=== PATIENT | female | born 1940 | race American Indian/Alaskan Native ===

== ENCOUNTER 2017-01-26 10:37 | Outpatient (CLI) | payer MEDICARE, OTHER ==
--- NOTE | 2017-01-27 07:30 | Vascular Lab Report ---
MESENTERIC ARTERIAL DUPLEX Reason for exam: Mesenteric artery insufficiency Comments: The aorta is patent. Flow velocities are within normal limits. Minimal atherosclerotic change is identified. No aneurysmal dilatation is noted. The celiac artery is patent. Flow velocities are normal. No evidence of obstruction is identified. The superior mesenteric artery is patent. Flow velocities are normal. No evidence of obstruction is identified. A caloric challenge was given. The patient complained of mild pain and pressure during the period of observation afterword. The superior mesenteric artery was interrogated for approximately 20 minutes after the meal. No significant changes in flow velocities were observed. Impression: This study does not support the diagnosis of mesenteric ischemia.
== END 2017-01-26 10:38 | disposition home or self-care (01) ==
LOC: VAS 10:37
PROVIDERS: ATTEND Surgery Vascular Surgery
DX: R10.84 Generalized abdominal pain (principal)
CPT/HCPCS: 93979

== ENCOUNTER 2018-05-19 10:16 | Outpatient (CLI) | payer MEDICARE, OTHER ==
--- NOTE | 2018-05-19 12:19 | Mammography Report ---
BILATERAL DIGITAL SCREENING MAMMOGRAM with CAD: 05/19/18 10:16:00 CLINICAL: Routine screening. COMPARISON:04/21/16 FINDINGS: There are bilateral scattered fibroglandular densities. Left outer asymmetry in the CC view requires additional imaging.No architectural distortion or suspicious calcifications.The right breast is negative. IMPRESSION: Left asymmetry requiring further workup. BI-RADS CATEGORY: 0 -- Additional Imaging Evaluation Required RECOMMENDATION: Recall for left mediolateral and spot magnification CC views and left breast ultrasound if needed. ACR BI-RADS MAMMOGRAPHIC CODES: 0 = Needs additional imaging evaluation; 1 = Negative; 2 = Benign; 3 = Probably benign; 4 = Suspicious; 5 = Malignant; 6 = Known biopsy-proven malignancy COMMENT: 1. Dense breast tissue, i.e., adenosis, fibrocystic changes, etc., may obscure an underlying neoplasm. 2. Approximately 10% of cancers are not detected with mammography. 3. A negative mammography report should not delay biopsy if a clinically suspicious mass is present. COMMENT: Patient follow-up letters are generated via our [employer] application.
== END 2018-05-19 10:17 | disposition home or self-care (01) ==
LOC: SPVWC 10:16
PROVIDERS: ATTEND Family Medicine
DX: Z12.31 Encounter for screening mammogram for malignant neoplasm of breast (principal); Z88.2 Allergy status to sulfonamides; Z88.5 Allergy status to narcotic agent
CPT/HCPCS: 77067

== ENCOUNTER 2019-05-21 11:51 | Outpatient (CLI) | payer MEDICARE, OTHER ==
--- NOTE | 2019-05-23 16:25 | Mammography Report ---
DIGITAL SCREENING MAMMOGRAM WITH CAD, 05/21/2019 INDICATION: Routine screening mammography. TECHNIQUE: Digital bilateral 2D mammography was obtained in the craniocaudal and mediolateral obliq ue projections. This examination was interpreted with the benefit of Computer-Aided Detection analysi s. COMPARISON: 05/19/2018 FINDINGS: Breast Density: The breasts are heterogeneously dense, which may obscure small masses. There is no evidence of dominant mass, suspicious calcifications or architectural distortion in eithe r breast. Bilateral benign calcifications, which are mostly arterial. IMPRESSION: No mammographic evidence of malignancy. Follow up recommendation: Routine yearly BI-RADS Category 2: Benign. A "normal" or negative report should not discourage follow up or biopsy of a clinically significant f inding. A written summary of these findings will be mailed to the patient. The patient will be entered into a mammography reporting system which will generate a reminder letter for the patient's next appointmen t at the appropriate interval. The [employer] recommends yearly mammograms starting at age 40 and continuing as l jennifer as a woman is in good health. Breast MRI is recommended for women with an approximate 20-25% or greater lifetime risk of breast cancer, including women with a strong family history of breast or ova alis cancer or who have been treated for Hodgkin's disease. Signer Name: Damion Geller MD Signed: 05/23/2019 4:20 PM Workstation Name: [id number]
== END 2019-05-21 11:52 | disposition home or self-care (01) ==
LOC: SPVWC 11:51
PROVIDERS: ATTEND Family Medicine
DX: Z12.31 Encounter for screening mammogram for malignant neoplasm of breast (principal)
CPT/HCPCS: 77067

== ENCOUNTER 2020-07-23 11:05 | Outpatient (CLI) | payer MEDICARE, OTHER ==
--- NOTE | 2020-07-23 13:15 | Mammography Report ---
DIGITAL SCREENING MAMMOGRAM WITH CAD, 07/23/2020 CLINICAL INFORMATION / INDICATION: Routine screening mammography. SCREENING MAMMO TECHNIQUE: Digital bilateral 2D mammography was obtained in the craniocaudal and mediolateral obliqu e projections. This examination was interpreted with the benefit of Computer-Aided Detection analysis . COMPARISON: Prior mammograms 05/21/2019 and 05/19/2018 FINDINGS: Breast Density: There are scattered areas of fibroglandular density. No dominant mass, suspicious calcifications, or architectural distortion in either breast. There has been no significant change compared with the prior examinations. IMPRESSION: No mammographic evidence of malignancy. Follow up recommendation: Routine yearly BI-RADS Category 1: Negative. A "normal" or negative report should not discourage follow up or biopsy of a clinically significant f inding. A written summary of these findings will be mailed to the patient. The patient will be entered into a mammography reporting system which will generate a reminder letter for the patient's next appointmen t at the appropriate interval. The [employer] recommends yearly mammograms starting at age 40 and continuing as l jennifer as a woman is in good health. Breast MRI is recommended for women with an approximate 20-25% or greater lifetime risk of breast cancer, including women with a strong family history of breast or ova alis cancer or who have been treated for Hodgkin's disease. Signer Name: Rose Paz MD Signed: 07/23/2020 1:11 PM Workstation Name: [email or web address]
== END 2020-07-23 11:06 | disposition home or self-care (01) ==
LOC: SPVWC 11:05
PROVIDERS: ATTEND Family Medicine
DX: Z12.31 Encounter for screening mammogram for malignant neoplasm of breast (principal)
CPT/HCPCS: 77067

== ENCOUNTER 2020-09-11 12:15 | Outpatient (CLI) | payer MEDICARE, OTHER ==
--- NOTE | 2020-09-11 13:33 | Mammography Report ---
DEXA BONE DENSITY SCAN INDICATION / CLINICAL INFORMATION: POSTMENOPAUSAL STATE. COMPARISON: None available. LUMBAR SPINE, L1-L4: - Bone mineral density (BMD) = 0.848 g/cm2. - T-score = -2.7 - Z-score = 0.1 Change (%) since most recent prior (if available): None available. LEFT HIP, NECK : - Bone mineral density (BMD) = 0.696 g/cm2. - T-score = -1.8 - Z-score = -0.1 Change (%) since most recent prior (if available): None available. IMPRESSION: 1. WHO Classification: Osteoporosis. Fracture Risk: High. BMD Reporting Guidelines (ISCD, 2015) BMD Reporting in Postmenopausal Women and in Men Age 50 and Older * T-scores are preferred. * The WHO densitometric classification is applicable. BMD Reporting in Females Prior to Menopause and in Males Younger Than Age 50 * Z-scores, not T-scores, are preferred. This is particularly important in children. * A Z-score of -2.0 or lower is defined as below the expected range for age, and a Z-score above -2. 0 is within the expected range for age. * Osteoporosis cannot be diagnosed in men under age 50 on the basis of BMD alone. * The WHO diagnostic criteria may be applied to women in the menopausal transition. http://www.iscd.org/official-positions/1467-ucuu-gjmioire-positions-adult/ Signer Name: Georgi Vaughn MD Signed: 09/11/2020 1:28 PM Workstation Name: [email or web address]
== END 2020-09-11 12:16 | disposition home or self-care (01) ==
LOC: SPVWC 12:15
PROVIDERS: ATTEND Family Medicine
DX: Z13.820 Encounter for screening for osteoporosis (principal); Z78.0 Asymptomatic menopausal state
CPT/HCPCS: 77080

== ENCOUNTER 2021-07-01 23:34 | Inpatient (IN) | payer MEDICARE, OTHER ==
[2021-07-01] MEDS ORDERED: SODIUM CHLORIDE 0.9% 1000 ML 1,000 ML IV ONE (23:43)
[2021-07-01] MEDS ORDERED: PIPERACILLIN/TAZOBACTAM 3.375 3.375 GM/50 ML BAG IV ONE (23:44)
[2021-07-01] MEDS ORDERED: ACETAMINOPHEN 650 MG RECT SUPP PR ONE (23:49)
--- NOTE | 2021-07-01 23:53 | Emergency Department Report ---
ED General Adult HPI - General Chief complaint: Altered Mental Status Stated complaint: ALTERED MENTAL STATUS Time Seen by Provider: 07/01/21 23:42 Source: EMS Mode of arrival: Stretcher Limitations: Altered Mental Status - History of Present Illness Initial comments: Patient is 80 years old female, custodial patient. Patient with history of hypertension and recent diagnosis of COVID-19 and sepsis also. Patient brought to the emergency room via EMS for evaluation of decreased responsiveness for the last 3 days. EMS stated that patient initially responding to painful stimuli. Patient initial blood pressure was 80/40. Upon arrival to the ER patient is morning however she is moving her right upper and lower extremity. Patient also found to have a temperature of 100.5. Code sepsis immediately initiated. Patient received normal saline, Tylenol and Zosyn. Sepsis protocol initiated. Severity scale (0 -10): 0 - Related Data Allergies Allergy/AdvReac Type Severity Reaction Status Date / Time codeine Allergy Nausea Unverified 01/26/17 10:41 Sulfa (Sulfonamide Allergy UNABLE TO Unverified 01/26/17 10:41 Antibiotics) WALK, MUSCLES ED Review of Systems ROS: Stated complaint: ALTERED MENTAL STATUS Other details as noted in HPI Comment: Unobtainable due to pts medical conditions ED Physical Exam - General Limitations: Altered Mental Status General appearance: obtunded - Head Head exam: Present: atraumatic, normocephalic, normal inspection - ENT ENT exam: Present: mucous membranes dry - Respiratory Respiratory exam: Present: rales, decreased breath sounds. Absent: prolonged expiratory - Cardiovascular Cardiovascular Exam: Present: tachycardia - GI/Abdominal GI/Abdominal exam: Present: soft - Neurological Exam Neurological exam: Present: altered - Skin Skin exam: Present: dry ED Course Vital Signs 07/01/21 07/01/21 07/01/21 23:38 23:46 23:47 Temperature 100.5 F H Pulse Rate 119 H 121 H 118 H Respiratory 27 H 29 H 25 H Rate Blood Pressure 140/105 Blood Pressure 140/105 [Right] O2 Sat by Pulse 98 92 Oximetry 07/02/21 07/02/21 07/02/21 00:00 00:08 00:16 Temperature Pulse Rate Respiratory 11 L 25 H 31 H Rate Blood Pressure 122/101 117/84 Blood Pressure [Right] O2 Sat by Pulse 93 87 Oximetry 07/02/21 07/02/21 07/02/21 00:30 00:46 01:00 Temperature Pulse Rate 112 H 109 H 122 H Respiratory 20 24 29 H Rate Blood Pressure 73/38 41/24 83/49 Blood Pressure [Right] O2 Sat by Pulse 100 Oximetry 07/02/21 07/02/21 07/02/21 01:14 01:16 01:30 Temperature Pulse Rate 109 H 105 H Respiratory 24 14 17 Rate Blood Pressure 90/57 91/55 Blood Pressure [Right] O2 Sat by Pulse Oximetry 07/02/21 07/02/21 07/02/21 01:46 02:00 02:16 Temperature Pulse Rate 101 H 105 H Respiratory 18 18 17 Rate Blood Pressure 91/55 89/53 89/53 Blood Pressure [Right] O2 Sat by Pulse Oximetry 07/02/21 07/02/21 07/02/21 02:30 02:54 03:00 Temperature Pulse Rate 101 H 109 H Respiratory 20 24 Rate Blood Pressure 100/56 103/58 Blood Pressure [Right] O2 Sat by Pulse 100 100 Oximetry 07/02/21 07/02/21 03:16 03:30 Temperature Pulse Rate 105 H Respiratory 22 25 H Rate Blood Pressure 103/58 102/61 Blood Pressure [Right] O2 Sat by Pulse Oximetry ED Medical Decision Making - Lab Data Result diagrams: 07/02/21 00:23 07/02/21 00:23 - EKG Data -: EKG Interpreted by Ar EKG shows normal: sinus rhythm Rate: tachycardia - EKG Data Interpretation: no acute changes - Radiology Data Radiology results: report reviewed - Medical Decision Making Patient is 80 years old female, custodial patient. Patient with history of hypertension and recent diagnosis of COVID-19 and sepsis also. Patient brought to the emergency room via EMS for evaluation of decreased responsiveness for the last 3 days. EMS stated that patient initially responding to painful stimuli. P atient initial blood pressure was 80/40. Upon arrival to the ER patient is morning however she is moving her right upper and lower extremity. Patient also found to have a temperature of 100.5. Code sepsis immediately initiated. Patient received normal saline, Tylenol and Zosyn. Sepsis protocol initiated. Labs reviewed and showed a leukocytosis of 21,000. Patient with significant kidney function impairment with a creatinine of 4.6 and a BUN of 80. Sodium is 148. Chest x-ray is unremarkable. Patient does have a decubitus ulcer. Patient blood pressure improved after normal saline. Patient current blood pressure is 102/61 with a MAP of 74. We will continue fluid resuscitation. I discussed the patient with Dr. Cruz, he agreed to admit the patient to medical service for further management. Critical care attestation.: If time is entered above; I have spent that time in minutes in the direct care of this critically ill patient, excluding procedure time. ED Disposition Clinical Impression: Acute sepsis, Acute renal failure, Acute hypernatremia Disposition: ADMITTED INPATIENT Is pt being admited?: Yes Condition: Stable Referrals: KEELY ULRICH MD [Primary Care Provider] - 3-5 Days
--- NOTE | 2021-07-02 00:39 | XRay Report ---
CHEST 1 VIEW 07/01/2021 11:26 PM INDICATION / CLINICAL INFORMATION: sepsis. COMPARISON: 06/29/07 FINDINGS: SUPPORT DEVICES: None. HEART / MEDIASTINUM: No significant abnormality. LUNGS / PLEURA: Mild bibasilar scarring versus atelectasis. No pneumothorax. ADDITIONAL FINDINGS: No significant additional findings. IMPRESSION: 1. Mild bibasilar scarring versus atelectasis. No pneumonia. Signer Name: Grady Spaulding MD Signed: 07/02/2021 12:35 AM Workstation Name: [id number]
[2021-07-02 00:58] LABS: Mean Corpuscular HGB Conc 30 % (30-34); Mean Corpuscular Volume 95 fl (79-97); Platelet Count 583 K/mm3 (140-440); Red Blood Count 4.13 M/mm3 (3.65-5.03)
[2021-07-02] MEDS ORDERED: SODIUM CHLORIDE 0.9% 1000 ML 1,000 ML IV ONE ×3 (01:08→20:42)
[2021-07-02 01:19] LABS: Hematocrit 39.4 % (30.3-42.9); Hemoglobin 11.9 gm/dl (10.1-14.3)
[2021-07-02 01:28] LABS: Albumin 2.8 g/dL (3.9-5); Calcium 8.7 mg/dL (8.4-10.2)
[2021-07-02 02:56] LABS: RBC Morphology Normal; Total Cells Counted 100
--- NOTE | 2021-07-02 03:13 | Cat Scan Report ---
CT ABDOMEN AND PELVIS WITHOUT CONTRAST INDICATION / CLINICAL INFORMATION: Recent diagnoses of Covid-19 and Sepsis. Now with abdominal pain. TECHNIQUE: Axial CT images were obtained through the abdomen and pelvis without IV contrast. All CT scans at this location are performed using CT dose reduction for ALARA by means of automated exposure control. COMPARISON: Chest radiograph dated 07/01/21 FINDINGS: LOWER CHEST: Bibasilar scarring and fibrosis. LIVER: No significant abnormality. GALLBLADDER: Gallbladder is distended. No calcified gallstones or inflammation. BILE DUCTS: No significant abnormality. PANCREAS: No significant abnormality. SPLEEN: No significant abnormality. ADRENALS: No significant abnormality. RIGHT KIDNEY / URETER: No significant abnormality. LEFT KIDNEY / URETER: No significant abnormality. STOMACH / SMALL BOWEL: No significant abnormality. COLON: Large amount of fecal material in the rectal vault with perirectal stranding and presacral sof t tissue edema suggesting fecal impaction. Moderate amount of fecal material in the proximal colon. M ild thickening and inflammation of the sigmoid colon. APPENDIX: Not visualized. PERITONEUM: No free fluid. No free air. No fluid collection. LYMPH NODES: No significant adenopathy. AORTA / ARTERIES: No significant abnormality. IVC / VEINS: No significant abnormality. URINARY BLADDER: Contracted REPRODUCTIVE ORGANS: Uterus is absent. No significant adnexal abnormality. ADDITIONAL FINDINGS: None. SKELETAL SYSTEM: No significant abnormality. IMPRESSION: 1. Rectal fecal impaction with perirectal soft tissue stranding and mild thickening/inflammation of t he adjacent sigmoid colon. Constipation. Signer Name: Grady Spaulding MD Signed: 07/02/2021 3:08 AM Workstation Name: [id number]
[2021-07-02] MEDS ORDERED: ONDANSETRON 4 MG/2 ML INJ IV PRN (04:11)
[2021-07-02] MEDS ORDERED: MAGNESIUM HYDROXIDE (MOM) ORAL LIQD UDC PO PRN (04:11)
[2021-07-02] MEDS ORDERED: MORPHINE 2 MG/1 ML INJ IV PRN (04:11)
[2021-07-02] MEDS ORDERED: ACETAMINOPHEN 650 MG RECT SUPP PR PRN (04:11)
[2021-07-02] MEDS ORDERED: MORPHINE 4 MG/1 ML INJ IV PRN (04:11)
[2021-07-02] MEDS ORDERED: SODIUM CHLORIDE 0.9% 1000 ML 1,000 ML IV SCH ×2 (04:15→20:45)
--- NOTE | 2021-07-02 04:27 | History and Physical Report ---
History of Present Illness Date of examination: 07/02/21 Date of admission: 07/02/2021 Chief complaint: Altered mental status History of present illness: 80-year-old -Prydeinig female resident of a [place] [facility] with known history of hypertension and a recent history of COVID-19 brought into the emergency room today for changes in mental status. Patient was said to have had decreased responsiveness while in the [place] [facility] over the past 3 days. She was unable to give any good history and most of the history was obtained from the ER staff. Upon arrival in the emergency room patient's blood pressure was about 80/40 mmHg. She was placed on sepsis protocol. She was immediately commenced on IV fluid with improvement of her systolic blood pressure in the low 100s. Work-up in the emergency room today, labs reveals a leukocytosis of 21.7, lactic acid of 5.5, glucose of 211, BUN and creatinine of 80 and 4.6 respectively, sodium of 146. Chest x-ray shows mild bibasilar scarring versus atelectasis. No pneumonia. CT of the abdomen and pelvis reveals rectal fecal impaction. Past History Past Medical History: other (Unobtainable) Past Surgical History: Other (Unobtainable) Social history: other (Resides in a [place] [facility] facility) Family history: other (Unobtainable) Medications and Allergies Allergies Allergy/AdvReac Type Severity Reaction Status Date / Time codeine Allergy Nausea Verified 07/02/21 04:25 Sulfa (Sulfonamide Allergy UNABLE TO Verified 07/02/21 04:25 Antibiotics) WALK, MUSCLES Active Meds: Active Medications Acetaminophen (Acetaminophen 650 Mg Rect Supp) 650 mg OK Q6H PRN PRN Reason: Pain MILD(1-3)/Fever >100.5/COLIN Heparin Sodium (Porcine) (Heparin 5,000 Unit/1 Ml Vial) 5,000 unit SUB-Q Q8HR HEBERT Sodium Chloride (Nacl 0.9% 1000 Ml) 1,000 mls @ 125 mls/hr IV DIRECT HEBERT Piperacillin Sod/Tazobactam Sod (Zosyn/Ns 4.5gm/100ml) 4.5 gm in 100 mls @ 200 mls/hr IV Q8H HEBERT; Protocol Magnesium Hydroxide (Magnesium Hydroxide (Mom) Oral Liqd Udc) 30 ml PO Q4H PRN PRN Reason: Constipation Morphine Sulfate (Morphine 2 Mg/1 Ml Inj) 2 mg IV Q4H PRN PRN Reason: Pain, Moderate (4-6) Morphine Sulfate (Morphine 4 Mg/1 Ml Inj) 4 mg IV Q4H PRN PRN Reason: Pain , Severe (7-10) Ondansetron HCl (Ondansetron 4 Mg/2 Ml Inj) 4 mg IV Q8H PRN PRN Reason: Nausea And Vomiting Sodium Chloride (Sodium Chloride 0.9% 10 Ml Flush Syringe) 10 ml IV BID HEBERT Sodium Chloride (Sodium Chloride 0.9% 10 Ml Flush Syringe) 10 ml IV PRN PRN PRN Reason: LINE FLUSH Review of Systems ROS unobtainable: due to mental status Exam - Constitutional Vitals: Temp Pulse Resp BP Pulse Ox 100.5 F H 105 H 25 H 102/61 100 07/01/21 23:47 07/02/21 03:16 07/02/21 03:30 07/02/21 03:30 07/02/21 03:00 General appearance: Present: no acute distress, well-nourished - EENT Eyes: Present: PERRL, EOM intact ENT: hearing intact, clear oral mucosa, dentition normal, other (Dry oral mucosa) - Neck Neck: Present: supple, normal ROM - Respiratory Respiratory effort: normal Respiratory: bilateral: diminished - Cardiovascular Rhythm: regular Heart Sounds: Present: S1 & S2. Absent: gallop, systolic murmur, diastolic murmur, rub, click - Extremities Extremities: no ischemia, pulses intact, pulses symmetrical, No edema, normal temperature, normal color, Full ROM Peripheral Pulses: within normal limits - Abdominal General gastrointestinal: Present: soft, non-tender, non-distended, normal bowel sounds. Absent: mass - Integumentary Integumentary: Present: clear, warm, dry. Absent: rash - Musculoskeletal Musculoskeletal: strength equal bilaterally - Psychiatric Psychiatric: cooperative - Neurologic Neurologic: CNII-XII intact, no focal deficits, moves all extremities, other (Nonverbal) HEART Score - HEART Score Troponin: Troponin T 0.024 ng/mL (0.00-0.029) 07/02/21 00:23 Results - Labs CBC & Chem 7: 07/02/21 00:23 07/02/21 00:23 Labs: Abnormal lab results 07/02/21 07/02/21 07/02/21 Range/Units 00:23 00:23 00:23 WBC 21.7 H (4.5-11.0) K/mm3 RDW 17.0 H (13.2-15.2) % Plt Count 583 H (140-440) K/mm3 Seg Neuts % (Manual) 86.0 H (40.0-70.0) % Lymphocytes % (Manual) 5.0 L (13.4-35.0) % Monocytes % (Manual) 9.0 H (0.0-7.3) % Seg Neutrophils # Man 18.7 H (1.8-7.7) K/mm3 Lymphocytes # (Manual) 1.1 L (1.2-5.4) K/mm3 Monocytes # (Manual) 2.0 H (0.0-0.8) K/mm3 Sodium 146 H (137-145) mmol/L Chloride 107.1 H (98-107) mmol/L Carbon Dioxide 15 L (22-30) mmol/L BUN 80 H (7-17) mg/dL Creatinine 4.6 H (0.6-1.2) mg/dL Glucose 211 H (65-100) mg/dL Lactic Acid 5.70 H* (0.7-2.0) mmol/L Albumin 2.8 L (3.9-5) g/dL 07/02/21 Range/Units 01:45 WBC (4.5-11.0) K/mm3 RDW (13.2-15.2) % Plt Count (140-440) K/mm3 Seg Neuts % (Manual) (40.0-70.0) % Lymphocytes % (Manual) (13.4-35.0) % Monocytes % (Manual) (0.0-7.3) % Seg Neutrophils # Man (1.8-7.7) K/mm3 Lymphocytes # (Manual) (1.2-5.4) K/mm3 Monocytes # (Manual) (0.0-0.8) K/mm3 Sodium (137-145) mmol/L Chloride (98-107) mmol/L Carbon Dioxide (22-30) mmol/L BUN (7-17) mg/dL Creatinine (0.6-1.2) mg/dL Glucose (65-100) mg/dL Lactic Acid 5.50 H* (0.7-2.0) mmol/L Albumin (3.9-5) g/dL Assessment and Plan - Patient Problems (1) Altered mental status Current Visit: Yes Status: Acute Plan to address problem: Etiology is unclear. Possibly secondary to underlying sepsis. We will monitor mental status. (2) Acute renal failure Current Visit: Yes Status: Acute Plan to address problem: Patient placed on IV fluid. Will monitor BUN and creatinine. Consult placed to nephrology for evaluation and recommendations. (3) Acute sepsis Current Visit: Yes Status: Acute Plan to address problem: Patient placed on IV fluid and empiric IV antibiotics. Will await culture results. (4) DVT prophylaxis Current Visit: Yes Status: Acute Plan to address problem: Patient placed on subcutaneous heparin. (5) Full code status Current Visit: Yes Status: Acute Plan to address problem: Patient is full code.
[2021-07-02 05:05] LABS: Bacteria,Urine 1+ /HPF (Negative); Bilirubin,Urine NEG (Negative); Blood,Urine MOD (Negative); Color,Urine Amber (Yellow); Hyaline Casts,Urine 2 /LPF; Mucus,Urine FEW /HPF
[2021-07-02] MEDS ORDERED: HEPARIN 5,000 UNIT/1 ML VIAL SUB-Q SCH (06:00)
--- NOTE | 2021-07-02 06:33 | Ultrasound Report ---
ULTRASOUND RENAL INDICATION / CLINICAL INFORMATION: Acute renal failure. COMPARISON: CT dated 07/02/21 FINDINGS: RIGHT KIDNEY: Length = 9.2 cm. - Echogenicity: Normal. - Cortical Thickness: Normal. - Hydronephrosis: None. - Cyst / Mass: None. - Stones: None seen. LEFT KIDNEY: Length = 9.8 cm. - Echogenicity: Normal. - Cortical Thickness: Normal. - Hydronephrosis: None. - Cyst / Mass: None. - Stones: None seen. URINARY BLADDER: Contracted. FREE FLUID: None. ADDITIONAL FINDINGS: None. IMPRESSION: 1. No acute sonographic abnormality of the kidneys. Signer Name: Grady Spaulding MD Signed: 07/02/2021 6:29 AM Workstation Name: [id number]
[2021-07-02] MEDS ORDERED: PIPERACIL/TAZOBACTA 4.5/NS 100 4.5 GM/100 ML VIAL IV SCH (08:00)
--- NOTE | 2021-07-02 09:45 | Consultation ---
History of Present Illness - Reason for Consult Consult date: 07/02/21 acute renal failure - History of Present Illness The patient is a 80 YO AAF resident of a assisted with known history of Hypertension and a recent history of COVID-19 PNA who was brought into [facility] ED 07/01 with AMS. Patient was not able to provide any history and her at the bedside was not able to provide any information. Patient with decreased responsiveness while in the assisted over the past 3 days. Upon arrival to ED BP was about 80/40 mmHg. Labs revealed wbc 21.7, Lactic acid of 5.5, BUN 80, creatinine 4.6 and sodium 146. Chest x-ray showed mild bibasilar scarring versus atelectasis. CT of the abdomen and pelvis revealed rectal fecal impaction. She was placed on sepsis protocol. Nephrology was consulted for further evaluation and treatment of LENCHO. Past History Past Medical History: other (Unobtainable) Past Surgical History: Other (Unobtainable) Social history: other (Resides in a assisted) Family history: other (Unobtainable) Medications and Allergies Allergies Allergy/AdvReac Type Severity Reaction Status Date / Time codeine Allergy Nausea Verified 07/02/21 09:54 Sulfa (Sulfonamide Allergy UNABLE TO Verified 07/02/21 09:54 Antibiotics) WALK, MUSCLES Active Meds: Active Medications Acetaminophen (Acetaminophen 650 Mg Rect Supp) 650 mg UT Q6H PRN PRN Reason: Pain MILD(1-3)/Fever >100.5/COLIN Heparin Sodium (Porcine) (Heparin 5,000 Unit/1 Ml Vial) 5,000 unit SUB-Q Q8HR HEBERT Last Admin: 07/02/21 05:52 Dose: Not Given Documented by: Sodium Chloride (Nacl 0.9% 1000 Ml) 1,000 mls @ 125 mls/hr IV DIRECT HEBERT Last Admin: 07/02/21 08:28 Dose: 125 mls/hr Documented by: Piperacillin Sod/Tazobactam Sod (Zosyn/Ns 4.5gm/100ml) 4.5 gm in 100 mls @ 200 mls/hr IV Q8H HEBERT; Protocol Last Admin: 07/02/21 08:29 Dose: 200 mls/hr Documented by: Magnesium Hydroxide (Magnesium Hydroxide (Mom) Oral Liqd Udc) 30 ml PO Q4H PRN PRN Reason: Constipation Morphine Sulfate (Morphine 2 Mg/1 Ml Inj) 2 mg IV Q4H PRN PRN Reason: Pain, Moderate (4-6) Morphine Sulfate (Morphine 4 Mg/1 Ml Inj) 4 mg IV Q4H PRN PRN Reason: Pain , Severe (7-10) Ondansetron HCl (Ondansetron 4 Mg/2 Ml Inj) 4 mg IV Q8H PRN PRN Reason: Nausea And Vomiting Sodium Chloride (Sodium Chloride 0.9% 10 Ml Flush Syringe) 10 ml IV BID HEBERT Sodium Chloride (Sodium Chloride 0.9% 10 Ml Flush Syringe) 10 ml IV PRN PRN PRN Reason: LINE FLUSH Review of Systems ROS unobtainable: due to mental status Exam - Vital Signs Vital signs: Vital Signs Pulse Resp 119 H 27 H 07/01/21 23:38 07/01/21 23:38 Results - Lab Results 07/02/21 11:56 07/02/21 11:56 Most recent lab results Calcium 8.7 mg/dL (8.4-10.2) 07/02/21 00:23 Assessment and Plan 1. Acute kidney injury: Vasomotor LENCHO in the setting of hypotension. Renal US negative for any hydro. Baseline renal function normal. Continue IV fluids. Monitor renal function. Creatinine level improving. Avoid nephrotoxic agents. Meds dosage based on GFR. 2. FEN: Metabolic acidosis, 2/2 LENCHO, monitor. Monitor lytes and volume status. 3. Sepsis, POA: Sacral decub. Colitis. Follow cultures. 4. Acute metabolic encephalopathy: Monitor. 5. C.diff colitis. 6. Sacral pressure ulcer. Wound care. Subjective: Patient was seen and examined at the bedside. at the bedside. Examination: General appearance: well-developed, appears stated age, emaciated, no distress HEENT: atraumatic Neck: trachea midline Respiratory: ctab Heart: S1S2, regular, no murmur Abdomen: soft, bowel sounds heard, NT Integumentary: no rash on the inspected area Neurologic: lethargic, not following any command Ext: no edema
--- NOTE | 2021-07-02 11:59 | Electrocardiograph Report ---
[facility] Test Date: 2021-07-01 Test Time: 23:55:08 Pat Name: CHRISTIAN SUTTON Department: Room: [place] [address] Gender: F State Attorney: HARRY : 1940 Requested By: CHRISTIANA PARRA Order Number: [id number] Reading MD: Dieudonne Abraham Measurements Intervals Freedom Rate: 116 P: 56 TN: 92 QRS: -3 QRSD: 76 T: 60 QT: 372 QTc: 518 Interpretive Statements Sinus tachycardia Low voltage, precordial leads Prolonged QT interval No previous ECG available for comparison Electronically Signed On 07-02-2021 11:59:05 EST by Dieudonne Abraham
[2021-07-02] MEDS ORDERED: SODIUM CHLORIDE 0.9% 1000 ML 2,000 ML IV ONE (12:00)
[2021-07-02] MEDS: PANTOPRAZOLE 40 MG INJ IV SCH (12:15)
[2021-07-02 12:22] LABS: Hematocrit 38.7 % (30.3-42.9); Hemoglobin 11.9 gm/dl (10.1-14.3)
--- NOTE | 2021-07-02 13:14 | Consultation ---
History of Present Illness Consult date: 07/02/21 Requesting physician: YOVANI CORONADO Reason for consult: other (Septic Shock) History of present illness: PULMONARY/CCM CONSULT NOTE (Full dictation # [id number]) Please see dictated notes for full details Past History Past Medical History: other (Unobtainable) Past Surgical History: Other (Unobtainable) Social history: other (Resides in a [facility]) Family history: other (Unobtainable) Medications and Allergies Allergies Allergy/AdvReac Type Severity Reaction Status Date / Time codeine Allergy Nausea Verified 07/02/21 09:54 Sulfa (Sulfonamide Allergy UNABLE TO Verified 07/02/21 09:54 Antibiotics) WALK, MUSCLES Active Meds: Active Medications Acetaminophen (Acetaminophen 650 Mg Rect Supp) 650 mg SC Q6H PRN PRN Reason: Pain MILD(1-3)/Fever >100.5/COLIN Sodium Chloride (Nacl 0.9% 1000 Ml) 1,000 mls @ 125 mls/hr IV DIRECT [facility] Last Admin: 07/02/21 08:28 Dose: 125 mls/hr Documented by: Sodium Chloride (Nacl 0.9% 1000 Ml) 2,000 mls @ 999 mls/hr IV BOLUS ONE Stop: 07/02/21 14:00 Last Admin: 07/02/21 12:15 Dose: 999 mls/hr Documented by: Piperacillin Sod/Tazobactam Sod (Zosyn/Ns 2.25 Gm/50ml) 2.25 gm in 50 mls @ 100 mls/hr IV Q8H [facility] Magnesium Hydroxide (Magnesium Hydroxide (Mom) Oral Liqd Udc) 30 ml PO Q4H PRN PRN Reason: Constipation Morphine Sulfate (Morphine 2 Mg/1 Ml Inj) 2 mg IV Q4H PRN PRN Reason: Pain, Moderate (4-6) Morphine Sulfate (Morphine 4 Mg/1 Ml Inj) 4 mg IV Q4H PRN PRN Reason: Pain , Severe (7-10) Ondansetron HCl (Ondansetron 4 Mg/2 Ml Inj) 4 mg IV Q8H PRN PRN Reason: Nausea And Vomiting Pantoprazole Sodium (Pantoprazole 40 Mg Inj) 40 mg IV BID [facility] Last Admin: 07/02/21 12:15 Dose: 40 mg Documented by: Sodium Chloride (Sodium Chloride 0.9% 10 Ml Flush Syringe) 10 ml IV BID HEBERT Last Admin: 07/02/21 10:14 Dose: 10 ml Documented by: Sodium Chloride (Sodium Chloride 0.9% 10 Ml Flush Syringe) 10 ml IV PRN PRN PRN Reason: LINE FLUSH Physical Examination Vital signs: Vital Signs Pulse Resp 119 H 27 H 07/01/21 23:38 07/01/21 23:38 Results - Laboratory Findings CBC and BMP: 07/02/21 11:56 07/02/21 11:56 Abnormal lab findings: Abnormal Labs 07/02/21 07/02/21 07/02/21 00:23 00:23 00:23 WBC 21.7 H RDW 17.0 H Plt Count 583 H Seg Neuts % (Manual) 86.0 H Lymphocytes % (Manual) 5.0 L Monocytes % (Manual) 9.0 H Seg Neutrophils # Man 18.7 H Lymphocytes # (Manual) 1.1 L Monocytes # (Manual) 2.0 H Sodium 146 H Chloride 107.1 H Carbon Dioxide 15 L BUN 80 H Creatinine 4.6 H Glucose 211 H Lactic Acid 5.70 H* Albumin 2.8 L Urine WBC (Auto) 07/02/21 07/02/21 07/02/21 01:45 04:39 05:30 WBC RDW Plt Count Seg Neuts % (Manual) Lymphocytes % (Manual) Monocytes % (Manual) Seg Neutrophils # Man Lymphocytes # (Manual) Monocytes # (Manual) Sodium Chloride Carbon Dioxide BUN Creatinine Glucose Lactic Acid 5.50 H* 5.90 H* Albumin Urine WBC (Auto) 52.0 H 07/02/21 11:56 WBC RDW Plt Count Seg Neuts % (Manual) Lymphocytes % (Manual) Monocytes % (Manual) Seg Neutrophils # Man Lymphocytes # (Manual) Monocytes # (Manual) Sodium Chloride Carbon Dioxide BUN 82 H Creatinine 3.7 H Glucose Lactic Acid Albumin Urine WBC (Auto)
--- NOTE | 2021-07-02 15:03 | Consultation ---
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 Noticed to have decreased responsiveness for 3 days. History is obtained from the chart. SHe was admitted to [facility] for a prolonged period of time due to her COVID. Febrile to 100.5 with a white count of 21.7. Reported to have diarrhea. Decreased renal function, eGFR 14. Pyruia on UA. Blood cultures no growth so far. Currently on Zosyn. Imaging personally reviewed: CT abdomen pelvis: Rectal fecal impaction soft tissue stranding Past History Past Medical History: other (Unobtainable) Past Surgical History: Other (Unobtainable) Social history: other (Resides in a alf) Family history: other (Unobtainable) Medications and Allergies Allergies Allergy/AdvReac Type Severity Reaction Status Date / Time codeine Allergy Nausea Verified 07/02/21 09:54 Sulfa (Sulfonamide Allergy UNABLE TO Verified 07/02/21 09:54 Antibiotics) WALK, MUSCLES Active Meds: Active Medications Acetaminophen (Acetaminophen 650 Mg Rect Supp) 650 mg AK Q6H PRN PRN Reason: Pain MILD(1-3)/Fever >100.5/COLIN Sodium Chloride (Nacl 0.9% 1000 Ml) 1,000 mls @ 125 mls/hr IV DIRECT HEBERT Last Admin: 07/02/21 08:28 Dose: 125 mls/hr Documented by: Piperacillin Sod/Tazobactam Sod (Zosyn/Ns 2.25 Gm/50ml) 2.25 gm in 50 mls @ 100 mls/hr IV Q8H HEBERT Magnesium Hydroxide (Magnesium Hydroxide (Mom) Oral Liqd Udc) 30 ml PO Q4H PRN PRN Reason: Constipation Morphine Sulfate (Morphine 2 Mg/1 Ml Inj) 2 mg IV Q4H PRN PRN Reason: Pain, Moderate (4-6) Morphine Sulfate (Morphine 4 Mg/1 Ml Inj) 4 mg IV Q4H PRN PRN Reason: Pain , Severe (7-10) Ondansetron HCl (Ondansetron 4 Mg/2 Ml Inj) 4 mg IV Q8H PRN PRN Reason: Nausea And Vomiting Pantoprazole Sodium (Pantoprazole 40 Mg Inj) 40 mg IV BID [facility] Last Admin: 07/02/21 12:15 Dose: 40 mg Documented by: Sodium Chloride (Sodium Chloride 0.9% 10 Ml Flush Syringe) 10 ml IV BID [facility] Last Admin: 07/02/21 10:14 Dose: 10 ml Documented by: Sodium Chloride (Sodium Chloride 0.9% 10 Ml Flush Syringe) 10 ml IV PRN PRN PRN Reason: LINE FLUSH Review of Systems ROS unobtainable: due to mental status Physical Examination - Physical Exam Narrative exam: Physical Exam: Constitutional: Alert, cooperative. Confused Head, Ears, Nose: Normocephalic, atraumatic. External ears, nose normal Eyes: Conjunctivae/corneas clear. No icterus. No ptosis. Neck: Supple, no meningeal signs Oral: dentition fair, no thrush Cardiovascular: S1, S2 normal. Respiratory: Good air entry, clear to auscultation bilaterally GI: Soft, non-tender; bowel sounds normal. No peritoneal signs. Musculoskeletal: No pedal edema, no cyanosis. Skin: No rash or abscess Hem/Lymphatic: No palpable cervical or supraclavicular nodes. No lymphangitis Psych: No agitation Neurological: No agitation - Constitutional Vitals: Vital Signs Temp Pulse Resp BP Pulse Ox 100.5 F H 112 H 25 H 117/60 100 07/01/21 23:47 07/02/21 14:51 07/02/21 14:51 07/02/21 14:51 07/02/21 13:30 Temperature -Last 24 Hours Temperature 100.5 F Results - Labs CBC & Chem 7: 07/02/21 11:56 07/02/21 11:56 Labs: Abnormal lab results 07/02/21 07/02/21 07/02/21 Range/Units 00:23 00:23 00:23 WBC 21.7 H (4.5-11.0) K/mm3 RDW 17.0 H (13.2-15.2) % Plt Count 583 H (140-440) K/mm3 Seg Neuts % (Manual) 86.0 H (40.0-70.0) % Lymphocytes % (Manual) 5.0 L (13.4-35.0) % Monocytes % (Manual) 9.0 H (0.0-7.3) % Seg Neutrophils # Man 18.7 H (1.8-7.7) K/mm3 Lymphocytes # (Manual) 1.1 L (1.2-5.4) K/mm3 Monocytes # (Manual) 2.0 H (0.0-0.8) K/mm3 Sodium 146 H (137-145) mmol/L Chloride 107.1 H (98-107) mmol/L Carbon Dioxide 15 L (22-30) mmol/L BUN 80 H (7-17) mg/dL Creatinine 4.6 H (0.6-1.2) mg/dL Glucose 211 H (65-100) mg/dL Lactic Acid 5.70 H* (0.7-2.0) mmol/L Albumin 2.8 L (3.9-5) g/dL Urine WBC (Auto) (0.0-6.0) /HPF 07/02/21 07/02/21 07/02/21 Range/Units 01:45 04:39 05:30 WBC (4.5-11.0) K/mm3 RDW (13.2-15.2) % Plt Count (140-440) K/mm3 Seg Neuts % (Manual) (40.0-70.0) % Lymphocytes % (Manual) (13.4-35.0) % Monocytes % (Manual) (0.0-7.3) % Seg Neutrophils # Man (1.8-7.7) K/mm3 Lymphocytes # (Manual) (1.2-5.4) K/mm3 Monocytes # (Manual) (0.0-0.8) K/mm3 Sodium (137-145) mmol/L Chloride (98-107) mmol/L Carbon Dioxide (22-30) mmol/L BUN (7-17) mg/dL Creatinine (0.6-1.2) mg/dL Glucose (65-100) mg/dL Lactic Acid 5.50 H* 5.90 H* (0.7-2.0) mmol/L Albumin (3.9-5) g/dL Urine WBC (Auto) 52.0 H (0.0-6.0) /HPF 07/02/21 Range/Units 11:56 WBC (4.5-11.0) K/mm3 RDW (13.2-15.2) % Plt Count (140-440) K/mm3 Seg Neuts % (Manual) (40.0-70.0) % Lymphocytes % (Manual) (13.4-35.0) % Monocytes % (Manual) (0.0-7.3) % Seg Neutrophils # Man (1.8-7.7) K/mm3 Lymphocytes # (Manual) (1.2-5.4) K/mm3 Monocytes # (Manual) (0.0-0.8) K/mm3 Sodium (137-145) mmol/L Chloride (98-107) mmol/L Carbon Dioxide (22-30) mmol/L BUN 82 H (7-17) mg/dL Creatinine 3.7 H (0.6-1.2) mg/dL Glucose (65-100) mg/dL Lactic Acid (0.7-2.0) mmol/L Albumin (3.9-5) g/dL Urine WBC (Auto) (0.0-6.0) /HPF Assessment and Plan Cultures: Blood culture 07/02/2021 no growth so far A/P: 80 yo F PMhx COVID admitted with: #Acute encephalopathy: possibly due to underlying infection vs LENCHO #SIRS/Sepsis: with fevers and leukocytosis #Pyuria: on UA, with associate encephalopathy; otherwise unable to assess for symptoms. #Colitis: pending C diff, may be sterocral given constipation seen on CT #Sacral pressure ulcer #LENCHO Recs: -Wound care for sacral decubitus -Follow up blood and urine culture -Continue Zosyn for now -Follow up C diff PCR; if positive start PO vancomycin Thank you for the consult, we will continue to follow. Parveen Sampson MD [facility] O: [phone] F: [phone]
--- NOTE | 2021-07-02 15:11 | Event Note ---
Date: 07/02/21 Patient seen and examined very lethargic, still with hypotension. Spoke with tow motor operator, if no improvement with additional fluids will need to Transfer to ICU. Will request records from [place]. Also keep on isolation due to recent COVID 19 Management. Spouse advised at bedside. Patient is critically ill. ID consulted Discussed also with Medical Appointment Scheduler who states that the patient had normal Renal function while at [place].
--- NOTE | 2021-07-02 16:12 | Procedure Note ---
Post-op diagnosis: same Procedure: Right femoral vein triple-lumen catheter under ultrasound guidance The patient was prepped and draped in the usual sterile fashion. A timeout was taken to identify the correct patient, correct procedure, and correct operative site. Ultrasound was utilized to identify the right femoral vein without difficulty. 1% lidocaine was utilized for local anesthesia. The Seldinger technique was utilized to access the right femoral vein with a seeker needle under ultrasound guidance. A guidewire was then advanced through the guidewire into the right femoral vein and the seeker needle removed over the guidewire. A scalpel was used to incise the skin at the insertion site. A dilator was then placed over the guidewire into the right femoral vein without difficulty and subsequently removed. A preflushed triple-lumen catheter was then advanced over the guidewire into the right femoral vein without difficulty. All 3 ports flush and draw with ease. A Biopatch was placed at the insertion site. 3-0 nylon suture was utilized to sew triple-lumen in place. Estimated blood loss minimal. Complications none. Anesthesia: local Estimated blood loss: minimal Pathology: none Condition: critical Disposition: ICU
[2021-07-02] MEDS: PIPERACIL-TAZO 2.25 GM/50 ML 2.25 GM/50 ML BAG IV SCH (16:30)
--- NOTE | 2021-07-03 00:15 | Consultation ---
DATE OF CONSULTATION: 07/02/2021 PULMONARY CRITICAL CARE CONSULT NOTE CONSULTING PHYSICIAN: Dr. Eric Giraldo REASON FOR CONSULTATION: Septic shock. CHIEF COMPLAINT AND HISTORY OF PRESENT ILLNESS: As follows. The patient is a now 80-year-old female, longterm resident, history of hypertension and recent COVID-19, now in the recovery phase, brought in from a longterm secondary to altered mental status. She had decreased responsiveness. It had been worsening over the preceding 3 days. In the Emergency Room, she was hypotensive, systolics in the 80s, diastolics in the 40s. She was started on sepsis protocol, received about 3 liters of IV fluid. She has remained relatively hypotensive since. Labs revealed a leukocytosis. Chest x-ray shows possible chronic lung disease. No overt pneumonia. A CT of the abdomen and pelvis revealed a rectal fecal impaction. We are asked to assist with management. When I stopped by to see her, she was resting in bed, remained somnolent to lethargic, but she was on room air and with mildly increased respiratory effort at rest. I do not have any history of vomiting or overt aspiration. Reportedly, she had some melena type stools that had guaiac positive. No bright red blood per rectum. She has had no witnessed seizures in the Emergency Room. She is not a current smoker. The above is as much of the history of presentation as I have. PAST MEDICAL HISTORY: Hypertension, recent COVID-19 infection. PAST SURGICAL HISTORY: Unknown. MEDICATIONS: She was on at the time I stopped by to see her according to the medication administration record included the following: Tylenol 650 mg per rectum q. 6 hours p.r.n. mild pain or fevers, morphine sulfate 2 mg IV q. 4 hours p.r.n. moderate pain and 4 mg IV q. 4 hours p.r.n. severe pain, Zofran 4 mg IV q. 8 hours p.r.n. nausea and vomiting, Protonix 40 mg IV b.i.d., Zosyn 2.25 grams IV q. 8 hours. ALLERGIES: CODEINE AND SULFA DRUGS. Nature of this allergy is unknown. DIET: Thin lady, acute weight loss or gain history is unknown. FAMILY AND SOCIAL HISTORY: [facility] resident. Alcohol, tobacco or illicit drug use or abuse history is unknown. FAMILY HISTORY: Otherwise unknown. REVIEW OF SYSTEMS: Unobtainable secondary to the patient's medical and mental condition. Since she has been here, no gross hematochezia. She has had some melena type stools. No gross hematuria, no hematemesis, no hemoptysis, no witnessed seizures. Review of systems is otherwise unobtainable or as in the body of the history above. PHYSICAL EXAMINATION: VITAL SIGNS: At presentation in the Emergency Room, she had a fever of 100.5 degrees Fahrenheit rectally with a pulse of 119, respiratory rate of 27 and blood pressure 140/105, O2 sats were recorded as 98% that was on room air when I saw her. Blood pressure, however, is currently 81/61 with a MAP of about 61, was as low as 54 when I was in the Emergency Room. GENERAL: She is an elderly, thin lady. Normocephalic, atraumatic. Resting in bed without significantly increased respiratory effort at rest. HEAD, EYES, EARS, NOSE, AND THROAT: Anicteric. No conjunctival erythema. Oropharynx was dry. NECK: No gross jugular venous distention, no thyromegaly. Grossly, there were no palpable lymph nodes in the supraclavicular or submandibular lymph node chains. LUNGS: Auscultation of both lung abebe significant mostly for diminished bilateral breath sounds, slightly prolonged expiratory phase. No wheezing. HEART: Sounds 1 and 2 are heard at the time of my evaluation. Irregular in rate and rhythm without overt rubs or murmurs, intermittently in the 110s-120s. ABDOMEN: Soft, flat, bowel sounds are positive, nontender, no palpable hepatosplenomegaly. EXTREMITIES: Without overt digital clubbing or cyanosis, no pedal edema. Pedal pulses 1+ bilaterally. NEUROLOGIC: Pupils are equal and round. They were about 3 mm, reactive to light. Extraocular muscle movements could not be assessed. She had some movements to her upper extremities and lower extremities to touch, but no spontaneous movement. She had been fidgeting around according to the nurses intermittently, trying to go for her right groin femoral central line. Otherwise, unable to evaluate her neurologically. SKIN: Poor turgor in the areas examined without overt cellulitis or rash. Please see the wound care nurses' notes for full description of her skin. PSYCHIATRIC: Mood and affect could not be assessed. She was encephalopathic. LABORATORY DATA: From my review are as follows: Admission white cell count 21,700, hemoglobin 11.9, hematocrit 39.4, platelet count 583. No band forms on the manual differential. Serum sodium 146, potassium 4.0, chloride 107, bicarbonate 15, BUN 80, creatinine 4.6, glucose 211. Lactic acid level was 5.5. It is up to 5.9. Troponin within normal limits. Liver function test within normal limits. Urinalysis shows 52 white cells per high power field, moderate leukocyte esterase, 1+ bacteria. C. diff toxin PCR is positive. Two sets of blood cultures, no growth to date. Chest x-ray is unremarkable, clear lung abebe bilaterally, perhaps some mild basilar scarring/atelectasis. CT of the abdomen and pelvis indeed was showing rectal fecal impaction and perirectal soft tissue stranding and mild thickening/inflammation. ASSESSMENT: 1. Acute toxic metabolic encephalopathy. 2. Acute kidney injury. 3. Septic shock. 4. Possible hypovolemic shock component. 5. Adult failure to thrive. 6. History of hypertension. 7. Leukocytosis. 8. Lactic acidosis. 9. Possible urinary tract infection. 10. Clostridium difficile colitis. PLAN: I will go ahead and resume volume resuscitation on this lady. I have asked the registered nurses to give her 1 liter normal saline bolus and run the other 250 liters in the bag hanging and I am going to start her on normal saline at 100 mL per hour and continue that for about 3 liters before I reevaluate her. Supplemental oxygen as necessary will be given to keep sats greater than or equal to about 90%. Aspiration precautions will be maintained. Vasopressors will be started for mean arterial pressures less than about 65 mmHg. I suspect she is significantly intravascular volume deficit and I will go with Levophed if needed. She has been seen by the information writer. I will defer to them. In light of the positive PCR, I will start her on some IV Flagyl and that defer otherwise to Infectious Disease for anti-infective therapy. She is appropriately on GI prophylaxis. GI consultation has been placed. She will remain n.p.o. for now. Flu and pneumonia vaccination will be addressed per protocol. Thank you very much for the consult. We will follow along and make further recommendations as picture progresses/becomes clearer. She is critically ill on life-sustaining interventions, at very high risk of from cardiopulmonary and renal system decompensation. At this time, I spent about 35-40 minutes of critical care time without overlap and excluding any procedural time that may be necessary. TID: [id number] RECEIPT: [id number] AMPARO/ANANYA
[2021-07-03] MEDS: PIPERACIL-TAZO 2.25 GM/50 ML 2.25 GM/50 ML BAG IV SCH ×2 (00:44→12:13)
[2021-07-03] MEDS: PANTOPRAZOLE 40 MG INJ IV SCH ×3 (00:44→21:09)
[2021-07-03] MEDS ORDERED: DEXTROSE 50% IN WATER (25GM) 50 ML SYRINGE IV ONE ×4 (01:11→08:00)
[2021-07-03 04:46] LABS: Hematocrit 30.4 % (30.3-42.9); Hemoglobin 9.6 gm/dl (10.1-14.3); Mean Corpuscular HGB Conc 32 % (30-34); Mean Corpuscular Volume 93 fl (79-97); Platelet Count 390 K/mm3 (140-440); Red Blood Count 3.28 M/mm3 (3.65-5.03); Red Cell Distribution Width 17.7 % (13.2-15.2)
[2021-07-03 04:56] LABS: INR 2.78 (0.87-1.13)
[2021-07-03 05:51] LABS: Band Neutrophils # (Manual) 1.1 K/mm3; Myelocytes # (Manual) 0.4 K/mm3; Total Cells Counted 100
[2021-07-03 05:52] LABS: Platelet Clumps 3+; Platelet Estimate Consistent w Auto
[2021-07-03 05:59] LABS: Calcium 6.6 mg/dL (8.4-10.2)
[2021-07-03] MEDS ORDERED: D5W/0.45% NACL 1,000 ML IV SCH (08:00)
--- NOTE | 2021-07-03 08:16 | Gastroenterology Consultation ---
History of Present Illness - Reason for Consult Consult date: 07/03/21 gi bleed Requesting physician: YOVANI CORONADO - History of Present Illness Patient unable to provide a history when I spoke with her therefore history obtained from chart as no family members were present at bedside. I also spoke with the patient's nurse and reviewed recent records from [facility] pertinent records are copied below In brief according nurse no overt bleeding however patient does have C. difficile positive on stool and is found to be anemic Hemoglobin 7.6 on discharge from [facility] June 11, 2021 Cdiff pos here Medical history asthma GERD hypertension hypothyroid Surgical history hysterectomy rotator cuff repair shoulder surgery Family history father mother no known history of liver disease Allergies codeine diclofenac penicillin sulfa home Meds reviewed/updated/reconciled EGD 2016 PREOPERATIVE DIAGNOSIS:Hx of gastric ulcer, GERD PROCEDURE PERFORMED: Esophagogastroduodenoscopy withcold forceps biopsy SURGEON:Karl Still MD ASSISTANTS: none CONSENT: Informed and written consent was obtained from the patient for upper endoscopy. The risks (including but not limited to perforation, bleeding, missed lesion, cardiopulmonary arrest and/or ), benefits and alternatives to upper endoscopy were thoroughly reviewed with the patient. MONITORING: The patient's vital signs, along with telemetry, were closely monitored. TYPE OF ANESTHESIA: Monitored anesthesia care MEDICATIONS: See the anesthesia records regarding the medications administered for this procedure. TECHNICAL PORTION OF THE PROCEDURE/FINDINGS: Using a standard adult upper endoscope, the esophagus was intubated, and the scope was passed as far as the 2nd portion of the duodenum. Close examination of the upper GI tract was performed with insertion and withdrawal of the endoscope. Retroflexion in the stomach was performed. COMPLICATIONS: There were no complications with this procedure ESTIMATED BLOOD LOSS: Less than 1 milliliter. SPECIMENS:Gastric biopsies (antrum, body, incisura) for h.pylori POSTOPERATIVE DIAGNOSES: Mild gastritis seen in antrum and body and biopsies obtained to further evaluate for h.pylori No evidence of gastric ulcer Normal duodenal bulb and 2nd portion RECOMMENDATIONS: Continue zantac Await pathology Follow up in GI clinic in 2-3wks with [facility] DISCHARGE SUMMARY: Kotaambrose Feliberto Heath [id number] 80 y.o. 1940 Current [id number] ADMIT DATE:05/22/2021 2:16 PM DISCHARGE DATE:June [id number] AM ADMITTING PHYSICIAN:Wolfgang Cabrera MD DISCHARGE PHYSICIAN:Prem Garcia MD HOSPITAL SUMMARY: Paty Dent a 80-year-old female with history of hypertension, hypothyroidism and asthma was brought into the ED with complaints of generalized worsening weakness and not eating for the past 1 to 2 weeks. is in the room and history obtained mostly from him.the patient is awake and alert she appears slightly confused and and she is unable to tell her age .Poor historian and poor memory. Apparently she has been confused and acting differently for the past 2 to 3 weeks and more sleepy and lethargic.She was brought to the ED a week ago and was diagnosed with chronic DVT of right femoral vein and was discharged on Eliquis.However patient continued to be progressively weaker and short of breath and was noted to be Covid positive in the ED and rapidly worsening hypoxia and she is being admitted for further management.She is unvaccinated against COVID-19 05/23. Patient continued to have shortness of breath difficulty breathing and she is very hypoxic. Patient is on high flow oxygen by nasal cannula FiO2 60% 40 L 05/24. Patient is on high flow of oxygen by nasal cannula FiO2 of 70% 50 L 05/25. Patient is now on high flow of oxygen by nasal cannula FiO2 of 80% 50 L 05/26: on high flow 40%, 30L. Continue decadron day 12/29remdesevir day 11/24 05/27: f/u labs. Continue on ivf. Repeat swallow eval. On 7L. Continue decadron day 01/29 and remdesevir day 12/24 05/28: on 3L. Continue decadron day 02/28. F/u repeat swallow eval as mental status is better. If does not pass then will start tube feeds 05/29: passed swallow. On 5L. Continue decadron day 03/31. Case mgmt working on [facility]. Updated today 05/30: stable on 3L. Continue decadron day 05/01. Dc to [facility] once arranged. Likely Tuesday. 05/31: stable on 3L. Continue decadron day 10. Dc to [facility] once arranged 06/01: on 3L. Case mgmt working on rehab. Having swallowing difficulty again. Change meds to iv/eliquis to lovenox. Get repeat swallow eval 06/02 place NG tube and start tube feeds. Spoke with spouse 06/03:NGT placed 06/07: Continue NG tube feeds 06/08: NG tube discontinued. Pured diet with aspiration precautions 06/09: NGT re-placement unsuccessful. Nutrition consulted, re: PPN. Start therapeutic Lovenox as above. Madhu updated by phone @2:40pm 06/10: O2 down to 2L, cont mobilization, 6MWT. Cont PPN, serial SETTER HELPER evals, dc planning 06/11: resp status stable, no hypoxia on 6MWT. Hgb noted though no overt b leeding, discussed with pt who declines further workup/endoscopy. Stable for dc to rehab with outpt f/u. Updated pt's Madhu by phone @12pm. Discharge Diagnoses: Hospital Problem List 1. * (Principal) Pneumonia due to COVID-19 virus 2. Essential hypertension 3. Acquired hypothyroidism 4. Acute hypoxemic respiratory failure due to COVID-19 (HC) 5. Acute respiratory failure with hypoxia (HC) 6. Hypernatremia 7. Sepsis due to COVID-19 (HC) 8. Severe sepsis (HC) 9. Acute metabolic encephalopathy HOSPITAL COURSE BY PROBLEM COVID-19 PNA // acute hypoxic respiratory failure // severe sepsis, POA Pt is NOT vaccinated.Pt treated with Decadron, Remdesivir, supplemental O2, Albuterol/Symbicort, VTE ppx, and supportive care all with good clinical effect, respiratory status improved and stable onRAby discharge. 6MWT completed,CM assisted with home O2 arrangementsas needed. Inflammatory markers trended and grossly improved/stable by discharge. Pt discharged in stable condition niko advised to follow up with PCP to monitor symptoms/recovery further. Severe oropharyngeal dysphagia // acute toxic/metabolic encephalopathy Serial SETTER HELPER evals completed -- no overt aspiration observed during repeated SETTER HELPER assessments, though ST felt pt's overall appetite/desire to eat low, pt also reportedly with increased HR to 160s with attempted swallowing. Nutrition consulted -- started on PPNbriefly, though pt's po intake/swallowing tolerance improved and stable on discharge, expect further improvement post-discharge with resolution of acute illness. Provided Rx for low dose marinol on discharge as well. Cont dysphagia diet, maintain aspiration precautions at rehab post- discharge, outpt ST f/u as indicated. Discussed with pt's at length, re: encourage dietary/caloric intake to avoid malnutrition, peg not recommended. ChronicdistalRLE DVT As noted on doppler 05/16/2021 Given decrease in Hgb level by discharge, advised to hold off resumption of home Eliquis pending outpt repeat Hgb levels to ensure stability. Advised pt/ to discuss with outpt physicians risks/benefits of resuming AC as well. Normocytic anemia As above, Hgb notably downtrended by discharged without overt/active bleeding observed. Pt was on therapeutic AC this admission for known recently dx'd distal RLE DVT as above. Discussed downtrend in Hgb by discharge with pt/family, pt declined further/endoscopic w/u and preferred to monitor Hgb levels as outpt with her physicians. Essential HTN BPs stable, cont regimen as below Generalized weakness PT/OT evals, pt discharged to rehab with CM per recommendations Hypothyroidism Cont Synthroid Consults Requested: IP CONSULT TO PHARMACY PHARMACY COMMUNICATION IP CONSULT TO NEPHROLOGY IP CONSULT TO NUTRITION IP CONSULT TO NUTRITION Procedures:N/A Complications/Infections:None PE: Appox exam time:11:10am Gen: thin elderly AAF in NAD,lying comfortably in bed resting, awakens to voice, alert, and oriented to self, place HEENT: NCAT, anicteric sclera,MMM, oropharynx clear CV: RRR, no m/r/g, warm Pulm:stable aerationwith no major bibasilar rhonchi today, no w/c, no increased WOBRA Abd: soft,non-TTP, ND Ext:intactperipheral pulses, good muscle tone, no LEedema stable Skin: warm, dry, intact, no rash Neuro: travel ot 2-12 grossly intact,appropriately conversive, follows commands well, 4/5 strength b/l with generalized weakness, otherwise non-focal Psyche: good affect, pleasant, conversive, cooperative with exam Wound documentation: Wound Sacrum Midline (Active) Wound Bed Description [place];Red 06/11/21834 [place]ia-wound Assessment Clean;Dry;Intact 06/11/21834 Dressing Status Dry;Clean;Intact;Changed 06/11/21834 Drainage Amount/Description None 06/11/21834 Dressing/Topical Foam 06/11/21834 Number of days: 20 RELEVANT LAB AND IMAGING REPORTS ECG 12 lead Result Date: 05/25/[address] AND T WAVE ABNORMALITY ABNORMAL ECG T WAVE INVERSION NO LONGER EVIDENT IN INFERIOR LEADS NONSPECIFIC T WAVE ABNORMALITY NO LONGER EVIDENT IN ANTERIOR LEADS NONSPECIFIC T WAVE ABNORMALITY, WORSE IN LATERAL LEADS Confirmed by Maria Dolores BRAR ([id number]) on 05/25/2021 9:34:25 AM ECG 12 lead Result Date: 05/24/2021 SINUS TACHYCARDIA LEFT AXIS DEVIATION INFERIOR INFARCT , AGE UNDETERMINED WHEN COMPARED WITH ECG OF 15-APR-2016 19:18, QRS AXIS SHIFTED LEFT ST NOW DEPRESSED IN INFERIOR LEADS NONSPECIFIC T WAVE ABNORMALITY NOW EVIDENT IN INFERIOR LEADS NONSPECIFIC T WAVE ABNORMALITY NO LONGER EVIDENT IN ANTERIOR LEADS QT HAS LENGTHENED Confirmed by Maria Dolores BRAR ([id number]) on 05/24/2021 4:00:13 PM X-ray knee left 3 views Result Date: 05/16/2021 Left knee 3 views: CLINICAL INDICATION: Left knee pain COMPARISON: None No acute fracture is appreciated. The joint spaces are maintained. There is mild tibiofemoral osteophyte formation. No joint effusion is appreciated. Mild degenerative disease. No acute process. Approved By: Pete Zazueta MD 05/16/2021 11:11 AM [id number] X-ray knee right 3 views Result Date: 05/16/2021 Right knee 3 views: CLINICAL INDICATION: Right knee pain COMPARISON: None No fracture is appreciated. The joint spaces appear maintained. There is mild osteophyte formation. No joint effusion is appreciated. Mild degenerative disease. No acute process. Approved By: Pete Zazueta MD 05/16/2021 11:12 AM [id number] X-ray abdomen AP Result Date: 06/06/2021 XR ABDOMEN AP Indication: NG tube placement;COVID-19;Encounter for screening for cardiovascular disorders;Acute respiratory failure with hypoxia ( HC);Hypoxemia;Weakness;Anorexia;Sepsis, unspecified organism (HC);Severe sepsis without septic shock (HC);Hypothyroidism, unspecified;COVID-19;Acute respiratory failure with hypox Comparison: 06/04/2021 Findings: Lung bases: Mild basilar atelectasis. Bowel gas pattern: Nonobstructive. Fecal burden: Moderate. Calcifications: No convincing urinary calculi. Bones: No acute osseous abnormalities. Other: Enteric tube tip and side port are in the stomach. Satisfactory enteric tube placement. Moderate colonic fecal burden. Approved By: Thien Shepherd 06/06/2021 12:13 AM [id number] X-ray abdomen AP Result Date: 06/04/2021 KUB INDICATION: Verify NGT placement;COVID-19;Encounter for screening for cardiovascular disorders;Acute respiratory failure with hypoxia (HC);Hypoxemia;Weakness;Anorexia;Sepsis, unspecified organism (HC);Severe sepsis without septic shock (HC);Hypothyroidism, unspecified;COVID-19;Acute respiratory failure with hy COMPARISON: Chest radiograph 06/03/2021 FINDINGS: Enteric tube terminates in the proximal stomach. Nonspecific prominent loops of small bowel in the right abdomen. No acute osseous abnormalities. Limited visualization of the lung bases demonstrate patchy opacities in the bilateral lung bases. 1. Enteric tube terminates in the proximal stomach. 2. Patchy opacities noted in the visualized lung bases, which may represent pneumonia and/or atelectasis. Approved By: Jeffrey Cordova MD 06/04/2021 7:[address] head without contrast Result Date: 05/22/2021 EXAM: CT HEAD WO CONTRAST INDICATION: Dizziness, non-specific;Encounter for screening for cardiovascular disorders COMPARISON: None available. TECHNIQUE: CT head without contrast using multiplanar reconstructions. All CT scans at this facility use dose modulation and/or weight based dosing when appropriate to reduce radiation dose to as low as reasonably achievable. (#[id number]#) FINDINGS: No evidence of intracranial hemorrhage or mass effect. Patchy areas of hypoattenuation within the periventricular and subcortical white matter. Dhillon- white matter differentiation is preserved. Ventricles and sulci are normal for patient's age. Paranasal sinuses are clear. Mastoid air cells are clear. The globes and orbits are normal. No acute calvarial abnormalities. 1. No evidence of intracranial hemorrhage or mass effect. 2. Small vessel ischemic disease and cerebral atrophy. Approved By: Aman Riley MD 05/22/2021 6:[address] abdomen pelvis with IV Contrast ONLY Result Date: 05/22/2021 EXAM: CT ABDOMEN AND PELVIS WITH CONTRAST HISTORY: Abdominal distention COMPAR MYRON: None TECHNIQUE: Contiguous axial images were obtained through the abdomen and pelvis after the uneventful administration of intravenous contrast. Sagittal and coronal reformatted images were generated. All CT scans at this facility use dose modulation and/or weight based dosing when appropriate to reduce radiation dose to as low as reasonably achievable. (#[id number]#) FINDINGS: Airsp paulino opacities noted within the lung bases, concerning for pneumonia. Liver, gallbladder, spleen, pancreas, right adrenal gland and bilateral kidneys are grossly unremarkable. 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 There is no bowel obstruction or ascites. Appendix is not visualized. Small hiatal hernia noted. There is no abdominal pelvic lymphadenopathy based on CT size criteria. No aggressive osseous lesions identified. No acute intra-abdominal/intrapelvic process identified. Airspace opacities noted within the visualized lung bases concerning for pneumonia. Approved By: Juan Bhat 05/22/2021 6:25 PM [id number] X-ray chest 1 view Result Date: 06/04/2021 Chest portable one view INDICATION: dyspnea;COVID-19;Encounter for screening for cardiovascular disorders;Acute respiratory failure with hypoxia (HC);Hypoxemia ;Weakness;Anorexia;Sepsis, unspecified organism (HC);Severe sepsis without septic shock (HC);Hypothyroidism, unspecified;COVID-19;Acute respiratory failure with hypoxia (HC);CO COMPARISON: 06/03/2021 FINDINGS: Unchanged patchy airspace opacities in the bilateral lung bases. No worsening airspace consolidation. The cardiac silhouette is stable accounting for portable technique. No pneumothorax. No pleural effusion. No acute osseous abnormalities. Unchanged patchy airspace opacities in the bilateral lung bases, likely representing pneumonia. Approved By: Jeffrey Cordova MD 06/04/2021 11:18 PM JACK X-ray chest 1 view Result Date: 06/03/2021 XR CHEST 1 VIEW INDICATION: TF placement;COVID-19;Encounter for screening for cardiovascular disorders; Acute respiratory failure with hypoxia (HC);Hypoxemia;Weakness;Anorexia;Sepsis, unspecified organism (HC);Severe sepsis without septic shock (HC);Hypothyroidism, unspecified;COVID-19;Acute respiratory failure with hypoxia (H. COMPARISON: 05/22/2021. TECHNIQUE: Frontal view of the chest is obtained. FINDINGS: There has been interval placement of an NG tube with its distal end coiled within the stomach. The cardiomediastinal silhouette is stable. Streaky densities are visualized in the lung bases, stable to minimally worse. Possible trace pleural effusions. There is no clinically significant pneumothorax. The visualized osseous structures are intact. 1. Interval placement of an NG tube in satisfactory position. 2. Streaky densi ties in the lung bases consistent with bilateral multifocal pneumonia seen on 05/22/2021 chest CTA, stable to minimally worse. Approved By: Carolyne Arana 06/03/2021 12:41 PM [id number] X-ray chest 1 view Result Date: 05/22/2021 Study:XR CHEST 1 VIEW History: Chest pain Comparison: None Findings: The cardiac silhouette is within normal limits. Airspace opacities noted within the left lower lung field/retrocardiac region, which may represent pneumonia versus atelectasis in the appropriate clinical setting. No significant pleural effusion identified. There is no pneumothorax. No acute osseous abnormality identified. Airspace opacities noted within the left lower lung field/retrocardiac region, which may represent pneumonia versus atelectasis in the appropriate clinical setting. No significant pleural effusion identified. There is no pneumothorax. Approved By: Juan Bhat 05/22/2021 3:[id number] chest pulmonary embolism with contrast Result Date: 05/22/2021 CTA CHEST PULMONARY EMBOLISM W CONTRAST INDICATION: PE suspected, high prob;Encounter for screening for cardiovascular disorders COMPARISON: None. TECHNIQUE: CTA chest after intravenous administration of contrast. Coronal and sagittal reformations were performed. 3-D/MIP images were also performed at a separate workstation. CT scans at this facility use iterative reconstruction technique, dose modulation and/or weight based dosing when appropriate to reduce radiation dose to as low as reasonably achievable. FINDINGS: Pulmonary arteries: No filling defects in the pulmonary arteries to suggest pulmonary embolism. Lungs/pleura: Bibasilar consolidations. No pneumothorax or pleural effusion. Heart: Normal size. No pericardial effusion. Thoracic aorta: No evidence of aneurysm or dissection. Lymph nodes: No pathologically enlarged lymph nodes. Chest wall: Normal. Bones: No acute osseous abnormality. Upper Abdomen: No acute findings. Small hiatal hernia. Fat-containing left adrenal nodule. No evidence of pulmonary embolism. Bilateral lower lobe consolidations, likely of infectious etiology. Correlate clinically. Approved By: Mary Reeves 05/22/2021 6:26 PM [id number] CV VAS doppler venous legs bilateral Result Date: 05/16/2021 Chronic deep vein thrombosis involving the right distal femoral vein. No evidence of acute DVT or superficial thrombus in the left lower extremity. DISCHARGE CONDITION:stable DISPOSITION:rehab DISCHARGE INSTRUCTIONS MEDS: Paty Heath Home Medication Instructions KATIA:[id number] Printed on:06/11/21 [id number] Medication Information albuterol 90 mcg/actuation Inhl inhaler Inhale 2 puffs into the lungs every 6 (six) hours as needed for Wheezing or Shortness of Breath. albuterol 90 mcg/actuation Inhl inhaler Inhale 2 puffs into the lungs every 4 (four) hours as needed for Wheezing or Shortness of Breath (cough). B-complex with vitamin C tablet Take 1 tablet by mouth daily. benzonatate (TESSALON) 100 mg capsule Take 1 capsule (100 mg total) by mouth 3 (three) times daily as needed for Cough. camphor-menthol (TIGER BALM) 11-11 % Oint Apply 1 Application topically 2 (two) times daily as needed. cyanocobalamin 1000 MCG tablet Take 1 tablet (1,000 mcg total) by mouth daily. dronabinoL (MARINOL) 2.5 MG capsule Take 1 capsule (2.5 mg total) by mouth 2 (two) times daily. fluticasone (FLONASE) 50 mcg/actuation nasal spray 1 spray by Nasal route daily. fluticasone propion-salmeteroL (ADVAIR) 250-50 mcg/dose diskus inhaler Inhale 1 puff into the lungs every 12 (twelve) hours. folic acid (FOLVITE) 1 MG tablet Take 1 tablet (1 mg total) by mouth daily. ipratropium (ATROVENT) 0.02 % nebulizer solution Take 500 mcg by nebulization 4 (four) times daily. levothyroxine 88 MCG Oral tablet Take 88 mcg by mouth daily. Take on an empty stomach lisinopril (PRINIVIL,ZESTRIL) 10 MG tablet Take 10 mg by mouth daily. metoprolol tartrate (LOPRESSOR) 25 MG tablet Take 0.5 tablets (12.5 mg total) by mouth 2 (two) times daily. montelukast (SINGULAIR) 10 mg tablet Take 10 mg by mouth nightly. traMADol (ULTRAM) 50 mg tablet Take 50 mg by mouth every 6 (six) hours as needed for Pain. Diet:regular Activity:activity as tolerated[facility]none needed PCP or Specialist notes for follow up care: PCP to monitor symptoms/recovery and resp status post-covid. Also monitor Hgb level to ensure stable, consider outpt GI referral for endoscopic workup as indicated. It took more [id number] to preparethis discharge including planning with case management and discussing outpatient care plan with patient and family. Prem Garcia MD 06/11/2021 11:57 AM . Past History Past Medical History: other (Unobtainable) Past Surgical History: Other (Unobtainable) Social history: other (Resides in a fpc) Family history: other (Unobtainable) Medications and Allergies Allergies Allergy/AdvReac Type Severity Reaction Status Date / Time codeine Allergy Nausea Verified 07/02/21 09:54 Sulfa (Sulfonamide Allergy UNABLE TO Verified 07/02/21 09:54 Antibiotics) WALK, MUSCLES Active Meds: Active Medications Acetaminophen (Acetaminophen 650 Mg Rect Supp) 650 mg TX Q6H PRN PRN Reason: Pain MILD(1-3)/Fever >100.5/COLIN Piperacillin Sod/Tazobactam Sod (Zosyn/Ns 2.25 Gm/50ml) 2.25 gm in 50 mls @ 100 mls/hr IV Q8H HEBERT Last Admin: 07/03/21 00:44 Dose: 100 mls/hr Documented by: Dextrose/Sodium Chloride (D5/0.45ns) 1,000 mls @ 100 mls/hr IV DIRECT HEBERT Magnesium Hydroxide (Magnesium Hydroxide (Mom) Oral Liqd Udc) 30 ml PO Q4H PRN PRN Reason: Constipation Morphine Sulfate (Morphine 2 Mg/1 Ml Inj) 2 mg IV Q4H PRN PRN Reason: Pain, Moderate (4-6) Morphine Sulfate (Morphine 4 Mg/1 Ml Inj) 4 mg IV Q4H PRN PRN Reason: Pain , Severe (7-10) Ondansetron HCl (Ondansetron 4 Mg/2 Ml Inj) 4 mg IV Q8H PRN PRN Reason: Nausea And Vomiting Pantoprazole Sodium (Pantoprazole 40 Mg Inj) 40 mg IV BID [facility] Last Admin: 07/03/21 00:44 Dose: 40 mg Documented by: Sodium Chloride (Sodium Chloride 0.9% 10 Ml Flush Syringe) 10 ml IV BID [facility] Last Admin: 07/03/21 03:58 Dose: 10 ml Documented by: Sodium Chloride (Sodium Chloride 0.9% 10 Ml Flush Syringe) 10 ml IV PRN PRN PRN Reason: LINE FLUSH Vancomycin HCl (Vancomycin 250 Mg/10 Ml Oral Liqd) 125 mg PO Q6HR [facility]; Protocol Review of Systems - Review of Systems ROS unobtainable: due to mental status Exam - Constitutional Vital Signs: Temp Pulse Resp BP Pulse Ox 97.7 F 103 H 22 100/39 93 07/03/21 04:00 07/03/21 04:01 07/03/21 04:01 07/03/21 04:01 07/03/21 04:00 - EENT Eyes: EOM intact ENT: hearing intact - Neck Neck: supple - Respiratory Respiratory: bilateral: rhonchi - Cardiovascular Rhythm: other (rachy) - Gastrointestinal General gastrointestinal: Present: soft - Integumentary Integumentary: Present: dry - Musculoskeletal Musculoskeletal: normal - Neurologic Neurological: disoriented - Psychiatric Psychiatric: depressed - Labs CBC & Chem 7: 07/03/21 04:00 07/03/21 04:00 Lab Results: Laboratory Results - last 24 hr 07/02/21 07/02/21 07/02/21 11:56 11:56 Unknown WBC RBC Hgb 11.9 Hct 38.7 MCV MCH MCHC RDW Plt Count Add Manual Diff Total Counted Seg Neutrophils % Seg Neuts % (Manual) Band Neutrophils % Lymphocytes % (Manual) Monocytes % (Manual) Myelocytes % Nucleated RBC % Seg Neutrophils # Man Band Neutrophils # Lymphocytes # (Manual) Abs React Lymphs (Man) Monocytes # (Manual) Eosinophils # (Manual) Basophils # (Manual) Metamyelocytes # Myelocytes # Promyelocytes # Blast Cells # WBC Morphology Hypersegmented Neuts Hyposegmented Neuts Hypogranular Neuts Smudge Cells Toxic Granulation Toxic Vacuolation Dohle Bodies Pelger-Huet Anomaly Lorrie Rods Platelet Estimate Clumped Platelets Plt Clumps, EDTA Large Platelets Giant Platelets Platelet Satelliting Plt Morphology Comment RBC Morphology Dimorphic RBCs Polychromasia Hypochromasia Poikilocytosis Anisocytosis Microcytosis Macrocytosis Spherocytes Pappenheimer Bodies Sickle Cells Target Cells Tear Drop Cells Ovalocytes Helmet Cells Noble-Browning Bodies [place] Rings Tamiko Cells Bite Cells Crenated Cell Elliptocytes Acanthocytes (Spur) Rouleaux Hemoglobin C Crystals Schistocytes Malaria parasites Ulises Bodies Hem Pathologist Commnt PT INR Sodium Potassium Chloride Carbon Dioxide Anion Gap BUN 82 H Creatinine 3.7 H Estimated GFR 14 BUN/Creatinine Ratio Glucose POC Glucose Lactic Acid Calcium Phosphorus Magnesium Procalcitonin C. difficile Tox (PCR) Positive 07/03/21 07/03/21 07/03/21 01:09 01:59 03:08 WBC RBC Hgb Hct MCV MCH MCHC RDW Plt Count Add Manual Diff Total Counted Seg Neutrophils % Seg Neuts % (Manual) Band Neutrophils % Lymphocytes % (Manual) Monocytes % (Manual) Myelocytes % Nucleated RBC % Seg Neutrophils # Man Band Neutrophils # Lymphocytes # (Manual) Abs React Lymphs (Man) Monocytes # (Manual) Eosinophils # (Manual) Basophils # (Manual) Metamyelocytes # Myelocytes # Promyelocytes # Blast Cells # WBC Morphology Hypersegmented Neuts Hyposegmented Neuts Hypogranular Neuts Smudge Cells Toxic Granulation Toxic Vacuolation Dohle Bodies Pelger-Huet Anomaly Lorrie Rods Platelet Estimate Clumped Platelets Plt Clumps, EDTA Large Platelets Giant Platelets Platelet Satelliting Plt Morphology Comment RBC Morphology Dimorphic RBCs Polychromasia Hypochromasia Poikilocytosis Anisocytosis Microcytosis Macrocytosis Spherocytes Pappenheimer Bodies Sickle Cells Target Cells Tear Drop Cells Ovalocytes Helmet Cells Noble-Browning Bodies [place] Rings Tamiko Cells Bite Cells Crenated Cell Elliptocytes Acanthocytes (Spur) Rouleaux Hemoglobin C Crystals Schistocytes Malaria parasites Ulises Bodies Hem Pathologist Commnt PT INR Sodium Potassium Chloride Carbon Dioxide Anion Gap BUN Creatinine Estimated GFR BUN/Creatinine Ratio Glucose POC Glucose 61 L 65 L 78 Lactic Acid Calcium Phosphorus Magnesium Procalcitonin C. difficile Tox (PCR) 07/03/21 07/03/21 07/03/21 04:00 04:00 04:00 WBC 21.9 H RBC 3.28 L Hgb 9.6 L Hct 30.4 D MCV 93 MCH 29 MCHC 32 RDW 17.7 H Plt Count 390 Add Manual Diff Complete Total Counted 100 Seg Neutrophils % Set Builder Seg Neuts % (Manual) 84.0 H Band Neutrophils % 5.0 Lymphocytes % (Manual) 2.0 L Monocytes % (Manual) 7.0 Myelocytes % 2.0 Nucleated RBC % Not Reportable Seg Neutrophils # Man 18.4 H Band Neutrophils # 1.1 Lymphocytes # (Manual) 0.4 L Abs React Lymphs (Man) 0.0 Monocytes # (Manual) 1.5 H Eosinophils # (Manual) 0.0 Basophils # (Manual) 0.0 Metamyelocytes # 0.0 Myelocytes # 0.4 Promyelocytes # 0.0 Blast Cells # 0.0 WBC Morphology Not Reportable Hypersegmented Neuts Not Reportable Hyposegmented Neuts Not Reportable Hypogranular Neuts Not Reportable Smudge Cells Not Reportable Toxic Granulation Not Reportable Toxic Vacuolation Not Reportable Dohle Bodies Not Reportable Pelger-Huet Anomaly Not Reportable Lorrie Rods Not Reportable Platelet Estimate Consistent w auto Clumped Platelets 3+ Plt Clumps, EDTA Not Reportable Large Platelets Not Reportable Giant Platelets Not Reportable Platelet Satelliting Not Reportable Plt Morphology Comment Platelet clumping RBC Morphology Not Reportable Dimorphic RBCs Not Reportable Polychromasia Not Reportable Hypochromasia Not Reportable Poikilocytosis Not Reportable Anisocytosis Not Reportable Microcytosis Not Reportable Macrocytosis Not Reportable Spherocytes Not Reportable Pappenheimer Bodies Not Reportable Sickle Cells Not Reportable Target Cells Not Reportable Tear Drop Cells Not Reportable Ovalocytes Not Reportable Helmet Cells Not Reportable Noble-Browning Bodies Not Reportable [place] Rings Not Reportable Tamiko Cells Not Reportable Bite Cells Not Reportable Crenated Cell Not Reportable Elliptocytes Not Reportable Acanthocytes (Spur) Not Reportable Rouleaux Not Reportable Hemoglobin C Crystals Not Reportable Schistocytes Not Reportable Malaria parasites Not Reportable Ulises Bodies Not Reportable Hem Pathologist Commnt No PT 31.6 H INR 2.78 H Sodium 152 H Potassium 3.6 Chloride 124.3 H Carbon Dioxide 12 L Anion Gap 19 BUN 78 H Creatinine 2.9 H Estimated GFR 19 BUN/Creatinine Ratio 27 Glucose 179 H POC Glucose Lactic Acid Calcium 6.6 L D Phosphorus 4.10 Magnesium 2.00 Procalcitonin C. difficile Tox (PCR) 07/03/21 07/03/21 07/03/21 04:07 04:30 06:06 WBC RBC Hgb Hct MCV MCH MCHC RDW Plt Count Add Manual Diff Total Counted Seg Neutrophils % Seg Neuts % (Manual) Band Neutrophils % Lymphocytes % (Manual) Monocytes % (Manual) Myelocytes % Nucleated RBC % Seg Neutrophils # Man Band Neutrophils # Lymphocytes # (Manual) Abs React Lymphs (Man) Monocytes # (Manual) Eosinophils # (Manual) Basophils # (Manual) Metamyelocytes # Myelocytes # Promyelocytes # Blast Cells # WBC Morphology Hypersegmented Neuts Hyposegmented Neuts Hypogranular Neuts Smudge Cells Toxic Granulation Toxic Vacuolation Dohle Bodies Pelger-Huet Anomaly Lorrie Rods Platelet Estimate Clumped Platelets Plt Clumps, EDTA Large Platelets Giant Platelets Platelet Satelliting Plt Morphology Comment RBC Morphology Dimorphic RBCs Polychromasia Hypochromasia Poikilocytosis Anisocytosis Microcytosis Macrocytosis Spherocytes Pappenheimer Bodies Sickle Cells Target Cells Tear Drop Cells Ovalocytes Helmet Cells Noble-Browning Bodies [place] Rings Tamiko Cells Bite Cells Crenated Cell Elliptocytes Acanthocytes (Spur) Rouleaux Hemoglobin C Crystals Schistocytes Malaria parasites Ulises Bodies Hem Pathologist Commnt PT INR Sodium Potassium Chloride Carbon Dioxide Anion Gap BUN Creatinine Estimated GFR BUN/Creatinine Ratio Glucose POC Glucose 108 H Lactic Acid 2.00 Calcium Phosphorus Magnesium Procalcitonin 4.12 C. difficile Tox (PCR) 07/03/21 06:28 WBC RBC Hgb Hct MCV MCH MCHC RDW Plt Count Add Manual Diff Total Counted Seg Neutrophils % Seg Neuts % (Manual) Band Neutrophils % Lymphocytes % (Manual) Monocytes % (Manual) Myelocytes % Nucleated RBC % Seg Neutrophils # Man Band Neutrophils # Lymphocytes # (Manual) Abs React Lymphs (Man) Monocytes # (Manual) Eosinophils # (Manual) Basophils # (Manual) Metamyelocytes # Myelocytes # Promyelocytes # Blast Cells # WBC Morphology Hypersegmented Neuts Hyposegmented Neuts Hypogranular Neuts Smudge Cells Toxic Granulation Toxic Vacuolation Dohle Bodies Pelger-Huet Anomaly Lorrie Rods Platelet Estimate Clumped Platelets Plt Clumps, EDTA Large Platelets Giant Platelets Platelet Satelliting Plt Morphology Comment RBC Morphology Dimorphic RBCs Polychromasia Hypochromasia Poikilocytosis Anisocytosis Microcytosis Macrocytosis Spherocytes Pappenheimer Bodies Sickle Cells Target Cells Tear Drop Cells Ovalocytes Helmet Cells Noble-Browning Bodies [place] Rings Tamiko Cells Bite Cells Crenated Cell Elliptocytes Acanthocytes (Spur) Rouleaux Hemoglobin C Crystals Schistocytes Malaria parasites Ulises Bodies Hem Pathologist Commnt PT INR Sodium Potassium Chloride Carbon Dioxide Anion Gap BUN Creatinine Estimated GFR BUN/Creatinine Ratio Glucose POC Glucose 117 H Lactic Acid Calcium Phosphorus Magnesium Procalcitonin C. difficile Tox (PCR) Assessment and Plan Anemia C. difficile colitis No overt bleeding and patient's hemoglobin is actually higher than on her recent discharge from the hospital therefore no role for endoscopic at this juncture Patient is positive for C. difficile she is already been started on appropriate medical therapy with vancomycin 125 mg every 6 hours for a total of 10 days Recommend continue to monitor patient clinically As no further interventions from GI standpoint GI will sign off please call us back we can be of any further assistance
--- NOTE | 2021-07-03 10:18 | XRay Report ---
ABDOMEN 1 VIEW(S) INDICATION / CLINICAL INFORMATION: NGT placement. COMPARISON: None available. FINDINGS: TUBES / LINES: NG tube tip at the distal esophagus. This could be advanced 3-4 cm. BOWEL GAS PATTERN: No significant abnormality. ADDITIONAL FINDINGS: No significant additional findings. Signer Name: Villa Aguilera MD Signed: 07/03/2021 10:14 AM Workstation Name: [employer] ( [email or web address] )-[id number]
[2021-07-03] MEDS: SODIUM BICARBONATE 75 MEQ in DEXTROSE 5% IN WATER 1,000 ML IV SCH ×2 (10:43→21:09)
--- NOTE | 2021-07-03 11:55 | XRay Report ---
ABDOMEN 1 VIEW(S) INDICATION / CLINICAL INFORMATION: reverify NGT after advancement. COMPARISON: Earlier today at 0931 hours FINDINGS: TUBES / LINES: The nasogastric tube has been advanced slightly with the sidehole now in the fundus of the stomach. BOWEL GAS PATTERN: No significant abnormality. FREE AIR / EXTRALUMINAL GAS: None seen. ADDITIONAL FINDINGS: No significant additional findings. IMPRESSION: The nasogastric tube has been advanced by a few centimeters and terminates in the fundus of the stoma ch. Signer Name: Zackery Logan Jr, MD Signed: 07/03/2021 11:50 AM Workstation Name: [id number]
[2021-07-03] MEDS ORDERED: CALCIUM GLUCONATE 2,000 MG in SODIUM CHLORIDE 0.9% 100 ML IV ONE (12:01)
--- NOTE | 2021-07-03 12:04 | Progress Note ---
Assessment and Plan 1. Acute kidney injury: Vasomotor LENCHO in the setting of hypotension. Renal US negative for any hydro. Baseline renal function normal. Continue IV fluids. Monitor renal function. Creatinine level improving. Avoid nephrotoxic agents. Meds dosage based on GFR. 2. FEN: Metabolic acidosis, 2/2 LENCHO, started on bicarb drip, monitor. Hypernatremia, hypotonic IV fluids, monitor. Replete Calcium. Monitor lytes and volume status. 3. Sepsis, POA: Sacral decub. Colitis. Follow cultures. 4. Acute metabolic encephalopathy: Monitor. 5. C.diff colitis. 6. Sacral pressure ulcer. Wound care. Subjective: Patient was seen and examined at the bedside. In ICU. Examination: General appearance: well-developed, appears stated age, emaciated, no distress, NG tube HEENT: atraumatic Neck: trachea midline Respiratory: ctab Heart: S1S2, regular, no murmur Abdomen: soft, bowel sounds heard, NT Integumentary: no rash on the inspected area Neurologic: lethargic, not following any command Ext: no edema Subjective Date of service: 07/03/21 Objective - Vital Signs Vital signs: Vital Signs - 12hr 07/03/21 07/03/21 07/03/21 00:15 00:31 00:45 Temperature Pulse Rate 97 H 100 H Respiratory 21 15 22 Rate Blood Pressure 115/67 115/67 115/67 O2 Sat by Pulse 75 L Oximetry 07/03/21 07/03/21 07/03/21 01:07 01:29 01:30 Temperature 95.5 F L Pulse Rate 110 H 137 H Respiratory 15 Rate Blood Pressure O2 Sat by Pulse 41 L Oximetry 07/03/21 07/03/21 07/03/21 01:31 01:41 01:51 Temperature Pulse Rate 118 H 111 H 116 H Respiratory 33 H 31 H 24 Rate Blood Pressure O2 Sat by Pulse 62 L Oximetry 07/03/21 07/03/21 07/03/21 02:01 02:10 02:21 Temperature Pulse Rate 105 H 105 H 110 H Respiratory 21 14 25 H Rate Blood Pressure 116/50 116/50 O2 Sat by Pulse 82 L 81 L Oximetry 07/03/21 07/03/21 07/03/21 02:31 02:41 02:51 Temperature Pulse Rate 108 H 106 H Respiratory 20 24 Rate Blood Pressure 116/50 116/50 116/50 O2 Sat by Pulse 77 L Oximetry 07/03/21 07/03/21 07/03/21 03:00 03:01 03:11 Temperature 98.2 F Pulse Rate 105 H 106 H Respiratory 22 30 H Rate Blood Pressure 90/71 90/71 O2 Sat by Pulse 65 L Oximetry 07/03/21 07/03/21 07/03/21 03:21 03:31 03:41 Temperature Pulse Rate 103 H 103 H 115 H Respiratory 18 24 Rate Blood Pressure 90/71 90/71 90/71 O2 Sat by Pulse Oximetry 07/03/21 07/03/21 07/03/21 03:50 04:00 04:01 Temperature 97.7 F Pulse Rate 107 H 96 H 103 H Respiratory 22 22 Rate Blood Pressure 90/71 100/39 O2 Sat by Pulse 93 Oximetry 07/03/21 07/03/21 07/03/21 04:11 04:21 04:31 Temperature Pulse Rate 101 H 98 H 99 H Respiratory 20 18 20 Rate Blood Pressure 100/39 100/39 100/39 O2 Sat by Pulse Oximetry 07/03/21 07/03/21 07/03/21 04:41 04:51 05:01 Temperature Pulse Rate 99 H 102 H 101 H Respiratory 15 18 18 Rate Blood Pressure 97/50 97/50 97/50 O2 Sat by Pulse 99 81 L 87 Oximetry 07/03/21 07/03/21 07/03/21 05:11 05:21 05:31 Temperature Pulse Rate 104 H 102 H 104 H Respiratory 17 19 23 Rate Blood Pressure 131/111 131/111 131/111 O2 Sat by Pulse 51 L Oximetry 07/03/21 07/03/21 07/03/21 05:40 05:51 06:00 Temperature Pulse Rate 105 H 101 H 99 H Respiratory 23 21 20 Rate Blood Pressure 70/52 90/42 88/36 O2 Sat by Pulse 100 100 Oximetry 07/03/21 07/03/21 07/03/21 06:11 06:21 06:31 Temperature Pulse Rate 97 H 97 H 100 H Respiratory 18 21 21 Rate Blood Pressure 88/36 106/44 106/44 O2 Sat by Pulse 100 100 100 Oximetry 07/03/21 07/03/21 07/03/21 06:41 06:51 07:00 Temperature Pulse Rate 101 H 104 H 104 H Respiratory 21 22 23 Rate Blood Pressure 106/44 106/44 104/50 O2 Sat by Pulse 100 85 Oximetry 07/03/21 07/03/21 07/03/21 07:11 07:21 07:31 Temperature Pulse Rate 107 H 107 H 108 H Respiratory 26 H 27 H 26 H Rate Blood Pressure 104/50 104/50 104/50 O2 Sat by Pulse 67 L Oximetry 07/03/21 07/03/21 07/03/21 07:41 07:51 08:01 Temperature Pulse Rate 112 H 112 H 111 H Respiratory 25 H 26 H 26 H Rate Blood Pressure 104/50 104/50 101/63 O2 Sat by Pulse Oximetry 07/03/21 07/03/21 08:03 08:11 Temperature 99.2 F Pulse Rate 110 H Respiratory 27 H Rate Blood Pressure 101/63 O2 Sat by Pulse Oximetry - Lab 07/03/21 04:00 07/03/21 04:00 Most recent lab results Calcium 6.6 mg/dL (8.4-10.2) L D 07/03/21 04:00 Phosphorus 4.10 mg/dL (2.5-4.5) 07/03/21 04:00 Magnesium 2.00 mg/dL (1.7-2.3) 07/03/21 04:00 Medications & Allergies - Medications Allergies/Adverse Reactions: Allergies codeine Allergy (Verified 07/02/21 09:54) Nausea Sulfa (Sulfonamide Antibiotics) Allergy (Verified 07/02/21 09:54) UNABLE TO WALK, MUSCLES Active Medications: Generic Name Dose Route Start Last Admin Trade Name Freq PRN Reason Stop Dose Admin Acetaminophen 650 mg 07/02/21 04:11 Acetaminophen 650 Mg Rect Supp SC Q6H PRN Pain MILD(1-3)/Fever >100.5/COLIN Piperacillin Sod/Tazobactam Sod 2.25 gm in 50 mls @ 100 mls/hr 07/02/21 16:00 07/03/21 00:44 Zosyn/Ns 2.25 Gm/50ml IV 100 mls/hr Q8H HEBERT Administration Sodium Bicarbonate 75 meq/ 1,075 mls @ 100 mls/hr 07/03/21 10:00 07/03/21 10:43 Dextrose IV 100 mls/hr DIRECT HEBERT Administration Magnesium Hydroxide 30 ml 07/02/21 04:11 Magnesium Hydroxide (Mom) Oral Liqd Udc PO Q4H PRN Constipation Morphine Sulfate 2 mg 07/02/21 04:11 Morphine 2 Mg/1 Ml Inj IV Q4H PRN Pain, Moderate (4-6) Morphine Sulfate 4 mg 07/02/21 04:11 Morphine 4 Mg/1 Ml Inj IV Q4H PRN Pain , Severe (7-10) Ondansetron HCl 4 mg 07/02/21 04:11 Ondansetron 4 Mg/2 Ml Inj IV Q8H PRN Nausea And Vomiting Pantoprazole Sodium 40 mg 07/02/21 12:00 07/03/21 00:44 Pantoprazole 40 Mg Inj IV 40 mg BID HEBERT Administration Sodium Chloride 10 ml 07/02/21 10:00 07/03/21 03:58 Sodium Chloride 0.9% 10 Ml Flush Syringe IV 10 ml BID HEBERT Administration Sodium Chloride 10 ml 07/02/21 04:11 Sodium Chloride 0.9% 10 Ml Flush Syringe IV PRN PRN LINE FLUSH Vancomycin HCl 125 mg 07/03/21 08:00 Vancomycin 250 Mg/10 Ml Oral Liqd PO Q6HR [facility] Protocol
[2021-07-03] MEDS ORDERED: LIPASE 10,500/PROTEASE 25,000/AMYLASE 43,750 (UNITS) DR CAP FEEDTUBE PRN (12:12)
[2021-07-03] MEDS ORDERED: SIMPLE SYRUP 15 ML FEEDTUBE PRN ×2 (12:12)
[2021-07-03] MEDS ORDERED: SODIUM BICARBONATE 325 MG TAB FEEDTUBE PRN (12:12)
[2021-07-03] MEDS: VANCOMYCIN 250 MG/10 ML ORAL LIQD PO SCH ×3 (12:13→18:21)
--- NOTE | 2021-07-03 13:27 | Progress Note ---
Assessment and Plan Acute toxic metabolic encephalopathy Acute kidney injury Septic shock Possible hypovolemic shock component Adult failure to thrive Hypertension Leukocytosis Lactic acidosis Possible urinary tract infection Clostridium difficile colitis - off Levophed drip - GI evaluation re: guaiac positive stools - continue Vancomycin for c-diff - de-escalate AB's per ID recommendations - wean supplemental oxygen for target O2 sat's > 90% acutely - aspiration precautions - prn bronchodilators with pulmonary hygiene per RT - avoid nephrotoxins, renally dose all medications - avoid benzodiazepine's, reduce the possibility of delirium - AB's per ID rec's - prn analgesia per CPOT score - Maintenance of sleep-wake cycle, avoid delirium - enteral nutritional support at goal rate as tolerated - G.I. & VTE prophylaxis - PT/OT/ROM exercises - continue mobility protocols for pressure ulcer prophylaxis - Monitor hemodynamics closely - continue other care per attending / other consultants - discharge planning ongoing concurrently COVID SPECIFIC INTERVENTIONS - test positive but in recovery .... Re-evaluate in am & prn CONDITION: CRITICAL PROGNOSIS: GUARDED CODE STATUS: FULL CODE The high probability of a clinically significant, sudden or life-threatening deterioration of the [respiratory, cardiovascular, GI & neurologic] system(s) required my full and direct attention, intervention and personal management. The aggregate critical care time was [33] minutes without overlap. Time includes spent on; [x] Data Review and interpretation [x] Patient assessment and monitoring of vital signs [x] Documentation [x] Medication orders and management Subjective Date of service: 07/03/21 Principal diagnosis: AMS; Septic shock; Adult FTT; Hypertension; Adult FTT; C- diff colitis Interval history: Patient is seen today for: Acute toxic metabolic encephalopathy; Septic shock; Adult FTT; Hypertension; Adult FTT; C-diff colitis Seen and examined at bedside; 24hour events reviewed; nursing and respiratory care staff consulted; no adverse overnight events reported to me; resting peace fully in bed; COVID-19 test positive but she is in recovery phase; more responsive; no emesis or overt aspiration; vancomycin started for c-diff colitis (oral) Objective Vital Signs - 12hr 07/03/21 07/03/21 07/03/21 01:07 01:29 01:30 Temperature 95.5 F L Pulse Rate 110 H 137 H Respiratory 15 Rate Blood Pressure O2 Sat by Pulse 41 L Oximetry 07/03/21 07/03/21 07/03/21 01:31 01:41 01:51 Temperature Pulse Rate 118 H 111 H 116 H Respiratory 33 H 31 H 24 Rate Blood Pressure O2 Sat by Pulse 62 L Oximetry 07/03/21 07/03/21 07/03/21 02:01 02:10 02:21 Temperature Pulse Rate 105 H 105 H 110 H Respiratory 21 14 25 H Rate Blood Pressure 116/50 116/50 O2 Sat by Pulse 82 L 81 L Oximetry 07/03/21 07/03/21 07/03/21 02:31 02:41 02:51 Temperature Pulse Rate 108 H 106 H Respiratory 20 24 Rate Blood Pressure 116/50 116/50 116/50 O2 Sat by Pulse 77 L Oximetry 07/03/21 07/03/21 07/03/21 03:00 03:01 03:11 Temperature 98.2 F Pulse Rate 105 H 106 H Respiratory 22 30 H Rate Blood Pressure 90/71 90/71 O2 Sat by Pulse 65 L Oximetry 07/03/21 07/03/21 07/03/21 03:21 03:31 03:41 Temperature Pulse Rate 103 H 103 H 115 H Respiratory 18 24 Rate Blood Pressure 90/71 90/71 90/71 O2 Sat by Pulse Oximetry 07/03/21 07/03/21 07/03/21 03:50 04:00 04:01 Temperature 97.7 F Pulse Rate 107 H 96 H 103 H Respiratory 22 22 Rate Blood Pressure 90/71 100/39 O2 Sat by Pulse 93 Oximetry 07/03/21 07/03/21 07/03/21 04:11 04:21 04:31 Temperature Pulse Rate 101 H 98 H 99 H Respiratory 20 18 20 Rate Blood Pressure 100/39 100/39 100/39 O2 Sat by Pulse Oximetry 07/03/21 07/03/21 07/03/21 04:41 04:51 05:01 Temperature Pulse Rate 99 H 102 H 101 H Respiratory 15 18 18 Rate Blood Pressure 97/50 97/50 97/50 O2 Sat by Pulse 99 81 L 87 Oximetry 07/03/21 07/03/21 07/03/21 05:11 05:21 05:31 Temperature Pulse Rate 104 H 102 H 104 H Respiratory 17 19 23 Rate Blood Pressure 131/111 131/111 131/111 O2 Sat by Pulse 51 L Oximetry 07/03/21 07/03/21 07/03/21 05:40 05:51 06:00 Temperature Pulse Rate 105 H 101 H 99 H Respiratory 23 21 20 Rate Blood Pressure 70/52 90/42 88/36 O2 Sat by Pulse 100 100 Oximetry 07/03/21 07/03/21 07/03/21 06:11 06:21 06:31 Temperature Pulse Rate 97 H 97 H 100 H Respiratory 18 21 21 Rate Blood Pressure 88/36 106/44 106/44 O2 Sat by Pulse 100 100 100 Oximetry 07/03/21 07/03/21 07/03/21 06:41 06:51 07:00 Temperature Pulse Rate 101 H 104 H 104 H Respiratory 21 22 23 Rate Blood Pressure 106/44 106/44 104/50 O2 Sat by Pulse 100 85 Oximetry 07/03/21 07/03/21 07/03/21 07:11 07:21 07:31 Temperature Pulse Rate 107 H 107 H 108 H Respiratory 26 H 27 H 26 H Rate Blood Pressure 104/50 104/50 104/50 O2 Sat by Pulse 67 L Oximetry 07/03/21 07/03/21 07/03/21 07:41 07:51 08:01 Temperature Pulse Rate 112 H 112 H 111 H Respiratory 25 H 26 H 26 H Rate Blood Pressure 104/50 104/50 101/63 O2 Sat by Pulse Oximetry 07/03/21 07/03/21 08:03 08:11 Temperature 99.2 F Pulse Rate 110 H Respiratory 27 H Rate Blood Pressure 101/63 O2 Sat by Pulse Oximetry Constitutional: appears uncomfortable, other (eldetly female without increased respiratory effort at rest) Eyes: non-icteric ENT: oropharynx dry Neck: supple, no lymphadenopathy, no JVD Effort: normal Ascultation: Bilateral: clear, diminished breath sounds Percussion: Bilateral: not dull Cardiovascular: regular rate and rhythm Gastrointestinal: normoactive bowel sounds, soft, non-tender, non-distended Integumentary: normal Extremities: no cyanosis, no edema, pulses normal, no ischemia or petechiae Neurologic: non-focal exam (grossly), pupils equal and round, unable to assess Psychiatric: other (unable to assess re: AMS) CBC and BMP: 07/04/21 05:42 07/04/21 05:42 ABG, PT/INR, D-dimer: PT/INR, D-dimer PT 31.6 Sec. (12.2-14.9) H 07/03/21 04:00 INR 2.78 (0.87-1.13) H 07/03/21 04:00 Abnormal lab findings: Abnormal Labs 07/02/21 07/02/21 07/02/21 00:23 00:23 00:23 WBC 21.7 H RBC Hgb RDW 17.0 H Plt Count 583 H Seg Neuts % (Manual) 86.0 H Lymphocytes % (Manual) 5.0 L Monocytes % (Manual) 9.0 H Seg Neutrophils # Man 18.7 H Lymphocytes # (Manual) 1.1 L Monocytes # (Manual) 2.0 H PT INR Sodium 146 H Chloride 107.1 H Carbon Dioxide 15 L BUN 80 H Creatinine 4.6 H Glucose 211 H POC Glucose Lactic Acid 5.70 H* Calcium Albumin 2.8 L Urine WBC (Auto) 07/02/21 07/02/21 07/02/21 01:45 04:39 05:30 WBC RBC Hgb RDW Plt Count Seg Neuts % (Manual) Lymphocytes % (Manual) Monocytes % (Manual) Seg Neutrophils # Man Lymphocytes # (Manual) Monocytes # (Manual) PT INR Sodium Chloride Carbon Dioxide BUN Creatinine Glucose POC Glucose Lactic Acid 5.50 H* 5.90 H* Calcium Albumin Urine WBC (Auto) 52.0 H 07/02/21 07/03/21 07/03/21 11:56 01:09 01:59 WBC RBC Hgb RDW Plt Count Seg Neuts % (Manual) Lymphocytes % (Manual) Monocytes % (Manual) Seg Neutrophils # Man Lymphocytes # (Manual) Monocytes # (Manual) PT INR Sodium Chloride Carbon Dioxide BUN 82 H Creatinine 3.7 H Glucose POC Glucose 61 L 65 L Lactic Acid Calcium Albumin Urine WBC (Auto) 07/03/21 07/03/21 07/03/21 04:00 04:00 04:00 WBC 21.9 H RBC 3.28 L Hgb 9.6 L RDW 17.7 H Plt Count Seg Neuts % (Manual) 84.0 H Lymphocytes % (Manual) 2.0 L Monocytes % (Manual) Seg Neutrophils # Man 18.4 H Lymphocytes # (Manual) 0.4 L Monocytes # (Manual) 1.5 H PT 31.6 H INR 2.78 H Sodium 152 H Chloride 124.3 H Carbon Dioxide 12 L BUN 78 H Creatinine 2.9 H Glucose 179 H POC Glucose Lactic Acid Calcium 6.6 L D Albumin Urine WBC (Auto) 07/03/21 07/03/21 04:07 06:28 WBC RBC Hgb RDW Plt Count Seg Neuts % (Manual) Lymphocytes % (Manual) Monocytes % (Manual) Seg Neutrophils # Man Lymphocytes # (Manual) Monocytes # (Manual) PT INR Sodium Chloride Carbon Dioxide BUN Creatinine Glucose POC Glucose 108 H 117 H Lactic Acid Calcium Albumin Urine WBC (Auto) CT scan - chest: image reviewed Allied health notes reviewed: nursing
[2021-07-03] MEDS ORDERED: metroNIDAZOLE/NS 500 MG/100 ML 500 MG/100 ML BAG IV SCH ×2 (14:00)
--- NOTE | 2021-07-03 14:57 | Progress Note ---
Assessment and Plan Cultures: Blood culture 07/02/2021 no growth so far A/P: 80 yo F PMhx COVID admitted with: #Acute encephalopathy: possibly due to underlying infection vs LENCHO #Sepsis: with fevers and leukocytosis. Secondary to C diff. #Pyuria: on UA, with associate encephalopathy; otherwise unable to assess for symptoms. #C diff colitis: with history of recent prolonged hospital exposure, now at [place]. #Sacral pressure ulcer #LENCHO: renally dose medications. Recs: -Wound care for sacral decubitus -Follow up blood and urine culture -Stopped Zosyn to avoid antibiotics in the setting of C diff. Sacral pressure ulcer is quite shallow and no evidence of infection -Continue PO vancomycin 125mg q6h to complete 10 days. Thank you for the consult, we will continue to follow. Parveen Sampson MD [facility] ([facility] O: [phone] F: [phone] Subjective Date of service: 07/03/21 Principal diagnosis: AMS; Septic shock; Adult FTT; Hypertension; Adult FTT; C- diff colitis Interval history: Afebrile, remains tachycardic and tachypneic. White count is stable from yesterday at 21.9. C. difficile positive. Objective - Exam Narrative Exam: Physical Exam: Constitutional: Alert, cooperative. Confused Head, Ears, Nose: Normocephalic, atraumatic. External ears, nose normal Eyes: Conjunctivae/corneas clear. No icterus. No ptosis. Neck: Supple, no meningeal signs Oral: dentition fair, no thrush Cardiovascular: S1, S2 normal. Respiratory: Good air entry, clear to auscultation bilaterally GI: Soft, non-tender; bowel sounds normal. No peritoneal signs. Musculoskeletal: No pedal edema, no cyanosis. Skin: No rash or abscess Hem/Lymphatic: No palpable cervical or supraclavicular nodes. No lymphangitis Psych: No agitation Neurological: No agitation - Constitutional Vitals: Vital Signs Temp Pulse Resp BP Pulse Ox 98.6 F 110 H 27 H 101/63 67 L 07/03/21 12:58 07/03/21 08:11 07/03/21 08:11 07/03/21 08:11 07/03/21 07:21 Temperature -Last 24 Hours Temperature 98.6 F Temperature 99.2 F Temperature 97.7 F Temperature 98.2 F Temperature 95.5 F Temperature 97.8 F Temperature 97.9 F - Labs CBC & Chem 7: 07/03/21 04:00 07/03/21 04:00 Labs: Abnormal lab results 07/03/21 07/03/21 07/03/21 Range/Units 01:09 01:59 04:00 WBC 21.9 H (4.5-11.0) K/mm3 RBC 3.28 L (3.65-5.03) M/mm3 Hgb 9.6 L (10.1-14.3) gm/dl RDW 17.7 H (13.2-15.2) % Seg Neuts % (Manual) 84.0 H (40.0-70.0) % Lymphocytes % (Manual) 2.0 L (13.4-35.0) % Seg Neutrophils # Man 18.4 H (1.8-7.7) K/mm3 Lymphocytes # (Manual) 0.4 L (1.2-5.4) K/mm3 Monocytes # (Manual) 1.5 H (0.0-0.8) K/mm3 PT (12.2-14.9) Sec. INR (0.87-1.13) Sodium (137-145) mmol/L Chloride (98-107) mmol/L Carbon Dioxide (22-30) mmol/L BUN (7-17) mg/dL Creatinine (0.6-1.2) mg/dL Glucose (65-100) mg/dL POC Glucose 61 L 65 L (70-105) mg/dL Calcium (8.4-10.2) mg/dL 07/03/21 07/03/21 07/03/21 Range/Units 04:00 04:00 04:07 WBC (4.5-11.0) K/mm3 RBC (3.65-5.03) M/mm3 Hgb (10.1-14.3) gm/dl RDW (13.2-15.2) % Seg Neuts % (Manual) (40.0-70.0) % Lymphocytes % (Manual) (13.4-35.0) % Seg Neutrophils # Man (1.8-7.7) K/mm3 Lymphocytes # (Manual) (1.2-5.4) K/mm3 Monocytes # (Manual) (0.0-0.8) K/mm3 PT 31.6 H (12.2-14.9) Sec. INR 2.78 H (0.87-1.13) Sodium 152 H (137-145) mmol/L Chloride 124.3 H (98-107) mmol/L Carbon Dioxide 12 L (22-30) mmol/L BUN 78 H (7-17) mg/dL Creatinine 2.9 H (0.6-1.2) mg/dL Glucose 179 H (65-100) mg/dL POC Glucose 108 H (70-105) mg/dL Calcium 6.6 L D (8.4-10.2) mg/dL 07/03/21 Range/Units 06:28 WBC (4.5-11.0) K/mm3 RBC (3.65-5.03) M/mm3 Hgb (10.1-14.3) gm/dl RDW (13.2-15.2) % Seg Neuts % (Manual) (40.0-70.0) % Lymphocytes % (Manual) (13.4-35.0) % Seg Neutrophils # Man (1.8-7.7) K/mm3 Lymphocytes # (Manual) (1.2-5.4) K/mm3 Monocytes # (Manual) (0.0-0.8) K/mm3 PT (12.2-14.9) Sec. INR (0.87-1.13) Sodium (137-145) mmol/L Chloride (98-107) mmol/L Carbon Dioxide (22-30) mmol/L BUN (7-17) mg/dL Creatinine (0.6-1.2) mg/dL Glucose (65-100) mg/dL POC Glucose 117 H (70-105) mg/dL Calcium (8.4-10.2) mg/dL
[2021-07-03 15:24] LABS: Creatinine,Urine 68.3 mg/dL (0.1-20.0); Fractional Sodium Excretion 0.7
--- NOTE | 2021-07-03 18:20 | Progress Note ---
<TRAVIS MELGOZA - Last Filed: 07/04/21 07:44> Assessment and Plan Assessment and plan: This is a 80-year-old AA female with a past medical history of HTN, hypothyroidism, GERD, and asthma who was sent to the hospital [place] [facility] for decreased responsiveness X3days. Patient was found to be septic, severely dehydrated, and in LENCHO. Patient was admitted in the ICU for further management. Hospital Course to Date: 07/03/21- Patient is lethargic and confused, on 2L NC. Cdiff came back positive will continue current tx with PO Vanco. Patient is too lethargic for PO intake, NGT inserted for meds and nutrition. Continue current IVF for now and continue to monitor renal function, Nephro is on the case. Assessment and Plan #Acute Metabolic Encephalopathy - Probably due to infection - Patient remains lethargic and confused - Avoid benzodiazepine to reduce the possibility of delirium - Prn analgesia for pain management - Maintenance of sleep-wake cycle #Hypotension #Septic Shock #Hypovolemic Shock - Patient s/p IVF boluses - No longer on pressors - Maintain adequate perfusion - Continue rehydration with cont. IVF - Continue blood pressure monitor per protocol - Maintain MAP above 65 - SCDs for VTE proph #Respiratory Insufficiency - 07/01 Chest x-ray shows mild bibasilar scarring versus atelectasis. No pneumonia. - Recently treated for COIVD PNA, was D/C on O2 supplement - Currently on 2L NC SPO2 at 100% - COVID swab pending - CCM consulted, appreciate recommendations - Aspiration precaution HOB above 30 - PRN CXR per CCM - Continue SPO2 monitoring for SPO2 goal above 92% #GI:Clostridium difficile colitis #H/o GERD #H/o GI Bleed - Recent Hosoitalization for COVID for longer Abx - C.diff positive - Continue PO Vanco via NGT - Enteral nutrition initiated - Continue PPI- Protonix BID - GI on consult #Anemia #H/o GI Bleed - Report of bloody stools from SNF - will sent occult stools - H&H is currently stable - No AC at this time - SCDs to bilateral lower extremities while in bed -Trend CBC - GI on consult, no intervention at this time #Acute Kidney Injury (LENCHO) most likely vasomotor 2/2 septic Shock #Hypovolemic Shock #Dehydration #Hypernatremia - Patient recent D/C from hospital, Scr was 1.1 - Scr. as high as 4.6, 2.9 this am - 07/03 FENa 0.8%, Pre- renal - Nephrology on consult, appreciated recommendation - Strict intake and output - Avoid nephrotoxic medications; Renally dose medications - Continue IVF for now - Monitor and replace electrolytes as needed #Sepsis #GI:Clostridium difficile colitis #Leukocytosis #Sacral pressure ulcer #Lactic Acidosis- resolved - Lactic acidosis as high as 5.90, trend down to 2 - Wbcs 21.9 this am, TMAX 100.5 - 07/02 B.CultX2 pending, Urine cult pending - Continue rehydration with cont. IVF - ID on consult - Continue current ABx regimen per ID - Continue to F/U on B.cult - Daily CBC monitor #Endo: Hypoglycemia - BG as low as 61 - Probably due to poor PO intake - POCT BG check Q6hrs - Hypoglycemic Protocol - Avoid Hypoglycemia The high probability of a clinically significant, sudden or life threatening deterioration of the [multiple] system(s) required my full and direct attention, intervention and personal management. The aggregate critical care time was [60] minutes. This time is in addition to time spent performing reported procedures but includes the following: [x] Data Review and interpretation [x] Patient assessment and monitoring of vital signs [x] Documentation [x] Medication orders and management Disposition Plan: ICU Total Time Spent with Patient (Minutes): 60 History Interval history: Patient is seen and examined at the bedside. Remains lethargic and confused, on 2L NC, no longer on pressors. ANA PAULA overnight Hospitalist Physical - Constitutional Vitals: Temp Pulse Resp BP Pulse Ox 98.6 F 102 H 21 118/67 88 07/03/21 12:58 07/03/21 17:21 07/03/21 17:21 07/03/21 17:21 07/03/21 17:11 General appearance: Present: no acute distress, well-nourished, cachectic - EENT Eyes: Present: PERRL ENT: hearing intact, other (Dry oral mucosa) - Respiratory Respiratory effort: normal Respiratory: bilateral: diminished - Cardiovascular Rhythm: regular Heart Sounds: Present: S1 & S2 - Extremities Extremities: no ischemia, pulses intact, pulses symmetrical Peripheral Pulses: within normal limits - Abdominal General gastrointestinal: soft, non-tender, normal bowel sounds - Integumentary Integumentary: Present: warm, dry - Psychiatric Psychiatric: other (Lethargic and confused) - Neurologic Neurologic: other (Lethargic and confused) - Allied Health Allied health notes reviewed: nursing HEART Score - HEART Score Troponin: Troponin T 0.024 ng/mL (0.00-0.029) 07/02/21 00:23 Results - Labs CBC & Chem 7: 07/04/21 05:42 07/04/21 05:42 Labs: Laboratory Last Values WBC 21.9 K/mm3 (4.5-11.0) H 07/03/21 04:00 RBC 3.28 M/mm3 (3.65-5.03) L 07/03/21 04:00 Hgb 9.6 gm/dl (10.1-14.3) L 07/03/21 04:00 Hct 30.4 % (30.3-42.9) D 07/03/21 04:00 MCV 93 fl (79-97) 07/03/21 04:00 MCH 29 pg (28-32) 07/03/21 04:00 MCHC 32 % (30-34) 07/03/21 04:00 RDW 17.7 % (13.2-15.2) H 07/03/21 04:00 Plt Count 390 K/mm3 (140-440) 07/03/21 04:00 Add Manual Diff Complete 07/03/21 04:00 Total Counted 100 07/03/21 04:00 Seg Neutrophils % Flat Folder 07/03/21 04:00 Seg Neuts % (Manual) 84.0 % (40.0-70.0) H 07/03/21 04:00 Band Neutrophils % 5.0 % 07/03/21 04:00 Lymphocytes % (Manual) 2.0 % (13.4-35.0) L 07/03/21 04:00 Monocytes % (Manual) 7.0 % (0.0-7.3) 07/03/21 04:00 Myelocytes % 2.0 % 07/03/21 04:00 Nucleated RBC % Not Reportable 07/03/21 04:00 Seg Neutrophils # Man 18.4 K/mm3 (1.8-7.7) H 07/03/21 04:00 Band Neutrophils # 1.1 K/mm3 07/03/21 04:00 Lymphocytes # (Manual) 0.4 K/mm3 (1.2-5.4) L 07/03/21 04:00 Abs React Lymphs (Man) 0.0 K/mm3 07/03/21 04:00 Monocytes # (Manual) 1.5 K/mm3 (0.0-0.8) H 07/03/21 04:00 Eosinophils # (Manual) 0.0 K/mm3 (0.0-0.4) 07/03/21 04:00 Basophils # (Manual) 0.0 K/mm3 (0.0-0.1) 07/03/21 04:00 Metamyelocytes # 0.0 K/mm3 07/03/21 04:00 Myelocytes # 0.4 K/mm3 07/03/21 04:00 Promyelocytes # 0.0 K/mm3 07/03/21 04:00 Blast Cells # 0.0 K/mm3 07/03/21 04:00 WBC Morphology Not Reportable 07/03/21 04:00 Hypersegmented Neuts Not Reportable 07/03/21 04:00 Hyposegmented Neuts Not Reportable 07/03/21 04:00 Hypogranular Neuts Not Reportable 07/03/21 04:00 Smudge Cells Not Reportable 07/03/21 04:00 Toxic Granulation Not Reportable 07/03/21 04:00 Toxic Vacuolation Not Reportable 07/03/21 04:00 Dohle Bodies Not Reportable 07/03/21 04:00 Pelger-Huet Anomaly Not Reportable 07/03/21 04:00 Lorrie Rods Not Reportable 07/03/21 04:00 Platelet Estimate Consistent w auto 07/03/21 04:00 Clumped Platelets 3+ 07/03/21 04:00 Plt Clumps, EDTA Not Reportable 07/03/21 04:00 Large Platelets Not Reportable 07/03/21 04:00 Giant Platelets Not Reportable 07/03/21 04:00 Platelet Satelliting Not Reportable 07/03/21 04:00 Plt Morphology Comment Platelet clumping 07/03/21 04:00 RBC Morphology Not Reportable 07/03/21 04:00 Dimorphic RBCs Not Reportable 07/03/21 04:00 Polychromasia Not Reportable 07/03/21 04:00 Hypochromasia Not Reportable 07/03/21 04:00 Poikilocytosis Not Reportable 07/03/21 04:00 Anisocytosis Not Reportable 07/03/21 04:00 Microcytosis Not Reportable 07/03/21 04:00 Macrocytosis Not Reportable 07/03/21 04:00 Spherocytes Not Reportable 07/03/21 04:00 Pappenheimer Bodies Not Reportable 07/03/21 04:00 Sickle Cells Not Reportable 07/03/21 04:00 Target Cells Not Reportable 07/03/21 04:00 Tear Drop Cells Not Reportable 07/03/21 04:00 Ovalocytes Not Reportable 07/03/21 04:00 Helmet Cells Not Reportable 07/03/21 04:00 [place] Bodies Not Reportable 07/03/21 04:00 [place] Rings Not Reportable 07/03/21 04:00 [place] Cells Not Reportable 07/03/21 04:00 Bite Cells Not Reportable 07/03/21 04:00 Crenated Cell Not Reportable 07/03/21 04:00 Elliptocytes Not Reportable 07/03/21 04:00 Acanthocytes (Spur) Not Reportable 07/03/21 04:00 Rouleaux Not Reportable 07/03/21 04:00 Hemoglobin C Crystals Not Reportable 07/03/21 04:00 Schistocytes Not Reportable 07/03/21 04:00 Malaria parasites Not Reportable 07/03/21 04:00 Ulises Bodies Not Reportable 07/03/21 04:00 Hem Pathologist Commnt No 07/03/21 04:00 PT 31.6 Sec. (12.2-14.9) H 07/03/21 04:00 INR 2.78 (0.87-1.13) H 07/03/21 04:00 Sodium 152 mmol/L (137-145) H 07/03/21 04:00 Potassium 3.6 mmol/L (3.6-5.0) 07/03/21 04:00 Chloride 124.3 mmol/L (98-107) H 07/03/21 04:00 Carbon Dioxide 12 mmol/L (22-30) L 07/03/21 04:00 Anion Gap 19 mmol/L 07/03/21 04:00 BUN 78 mg/dL (7-17) H 07/03/21 04:00 Creatinine 2.9 mg/dL (0.6-1.2) H 07/03/21 04:00 Estimated GFR 19 ml/min 07/03/21 04:00 BUN/Creatinine Ratio 27 % 07/03/21 04:00 Glucose 179 mg/dL (65-100) H 07/03/21 04:00 POC Glucose 81 mg/dL (70-105) 07/03/21 11: Lactic Acid 2.00 mmol/L (0.7-2.0) 07/03/21 04:30 Calcium 6.6 mg/dL (8.4-10.2) L D 07/03/21 04:00 Phosphorus 4.10 mg/dL (2.5-4.5) 07/03/21 04:00 Magnesium 2.00 mg/dL (1.7-2.3) 07/03/21 04:00 Total Bilirubin 0.60 mg/dL (0.1-1.2) 07/02/21 00:23 AST 14 units/L (5-40) 07/02/21 00:23 ALT 8 units/L (7-56) 07/02/21 00:23 Alkaline Phosphatase 118 units/L (35-129) 07/02/21 00:23 Troponin T 0.024 ng/mL (0.00-0.029) 07/02/21 00:23 Total Protein 6.4 g/dL (6.3-8.2) 07/02/21 00:23 Albumin 2.8 g/dL (3.9-5) L 07/02/21 00:23 Albumin/Globulin Ratio 0.8 % 07/02/21 00:23 Procalcitonin 4.12 ng/mL (<0.15) 07/03/21 06:06 Urine Color Janey (Yellow) 07/02/21 04:39 Urine Turbidity Cloudy (Clear) 07/02/21 04:39 Urine pH 5.0 (5.0-7.0) 07/02/21 04:39 Ur Specific [place] 1.017 (1.003-1.030) 07/02/21 04:39 Urine Protein 100 mg/dl mg/dL (Negative) 07/02/21 04:39 Urine Glucose (UA) 50 mg/dL (Negative) 07/02/21 04:39 Urine Ketones Neg mg/dL (Negative) 07/02/21 04:39 Urine Blood Mod (Negative) 07/02/21 04:39 Urine Nitrite Neg (Negative) 07/02/21 04:39 Urine Bilirubin Neg (Negative) 07/02/21 04:39 Urine Urobilinogen 2.0 mg/dL (<2.0) 07/02/21 04:39 Ur Leukocyte Esterase Mod (Negative) 07/02/21 04:39 Urine WBC (Auto) 52.0 /HPF (0.0-6.0) H 07/02/21 04:39 Urine RBC (Auto) 22.0 /HPF (0.0-6.0) 07/02/21 04:39 U Epithel Cells (Auto) 7.0 /HPF (0-13.0) 07/02/21 04:39 Urine Bacteria (Auto) 1+ /HPF (Negative) 07/02/21 04:39 Urine WBC Clumps 2+ /HPF 07/02/21 04:39 Hyaline Casts 2 /LPF 07/02/21 04:39 Urine Mucus Few /HPF 07/02/21 04:39 Urine Yeast (Budding) 2+ /HPF 07/02/21 04:39 Urine Eosinophils None seen (None Seen) 07/03/21 Unknown Urine Creatinine 68.3 mg/dL (0.1-20.0) H 07/03/21 Unknown Urine Sodium 27 mmol/L 07/03/21 Unknown Fraction Sodium Excret 0.7 07/03/21 Unknown C. difficile Tox (PCR) Positive (Negative) 07/02/21 Unknown Coronavirus (PCR) Positive (Negative) A 07/03/21 Unknown Microbiology: Microbiology 07/02/21 04:39 Urine,Clean Catch Urine Culture - Preliminary NO GROWTH AFTER 24 HOURS 07/02/21 00:55 Peripheral/Venous Blood Culture - Preliminary NO GROWTH AFTER 24 HOURS 07/02/21 00:23 Peripheral/Venous Blood Culture - Preliminary NO GROWTH AFTER 24 HOURS Harris/IV: Voiding Method Incontinent Active Medications - Current Medications Current Medications: Generic Name Dose Route Start Last Admin Trade Name Freq PRN Reason Stop Dose Admin Acetaminophen 650 mg 07/02/21 04:11 Acetaminophen 650 Mg Rect Supp IA Q6H PRN Pain MILD(1-3)/Fever >100.5/COLIN Lipase/Protease/Amylase 1 each 07/03/21 12:12 Lipase 10,500/Protease 25,000/Amylase 43,750 (Units) Dr Cap FEEDTUBE PRN PRN For Clogged Feeding Tube Sodium Bicarbonate 75 meq/ 1,075 mls @ 100 mls/hr 07/03/21 10:00 07/03/21 10:43 Dextrose IV 100 mls/hr DIRECT HEBERT Administration Magnesium Hydroxide 30 ml 07/02/21 04:11 Magnesium Hydroxide (Mom) Oral Liqd Udc PO Q4H PRN Constipation Morphine Sulfate 2 mg 07/02/21 04:11 Morphine 2 Mg/1 Ml Inj IV Q4H PRN Pain, Moderate (4-6) Morphine Sulfate 4 mg 07/02/21 04:11 Morphine 4 Mg/1 Ml Inj IV Q4H PRN Pain , Severe (7-10) Ondansetron HCl 4 mg 07/02/21 04:11 Ondansetron 4 Mg/2 Ml Inj IV Q8H PRN Nausea And Vomiting Pantoprazole Sodium 40 mg 07/02/21 12:00 07/03/21 12:14 Pantoprazole 40 Mg Inj IV 40 mg BID HEBERT Administration Simple Syrup 15 ml 07/03/21 12:12 Simple Syrup 15 Ml FEEDTUBE PRN PRN Hypoglycemia Simple Syrup 30 ml 07/03/21 12:12 Simple Syrup 15 Ml FEEDTUBE PRN PRN Hypoglycemia Sodium Bicarbonate 325 mg 07/03/21 12:12 Sodium Bicarbonate 325 Mg Tab FEEDTUBE PRN PRN For Clogged Feeding Tube Sodium Chloride 10 ml 07/02/21 10:00 07/03/21 12:15 Sodium Chloride 0.9% 10 Ml Flush Syringe IV 10 ml BID HEBERT Administration Sodium Chloride 10 ml 07/02/21 04:11 Sodium Chloride 0.9% 10 Ml Flush Syringe IV PRN PRN LINE FLUSH Vancomycin HCl 125 mg 07/03/21 08:00 07/03/21 12:16 Vancomycin 250 Mg/10 Ml Oral Liqd PO Not Given Q6HR HEBERT Protocol Nutrition/Malnutrition Assess - Dietary Evaluation Nutrition/Malnutrition Findings: Nutrition Notes Start: 07/02/21 13:56 Freq: Status: Active Protocol: Document 07/03/21 11:52 MARCE (Rec: 07/03/21 12:12 NHALL [id number]) Nutrition Notes Need for Assessment generated from: MD Order Initial or Follow up Reassessment Current Diagnosis Acute Kidney Injury,Sepsis, Hypertension Other Pertinent Diagnosis AMS, Sacral PU, Recent COVID- 19 Current Diet NPO Labs/Tests Na 152 BUN 78 Cr 2.9 BG 179 Ca 6.6 (adjusted 7.56) Pertinent Medications Protonix, 75mEq Na bicarb in D5W at 100ml/hr Height 5 ft 6 in Weight 59.874 kg [place] Body Weight (kg) 59.09 BMI 21.3 Weight Status Underweight Subjective/Other Information RD consulted for TF. Burn Absent Trauma Absent GI Symptoms Diarrhea #1 Nutrition Diagnosis Inadequate energy intake Diagnosis Progress(for reassessment Continues documentation) Is patient on ventilator? No Is Patient Ambulatory and/or Out of Bed No REE-([facility]-confined to bed) 1321.356 Kcal/Kg value to use for calculation 30 Approximate Energy Requirements Using 1796 kcal/Kg Calculation Used for Recommendations Kcal/kg Additional Notes Pro needs 0.8-1.2g/k-72g/ day Fluid needs 1ml/kcal Nutrition Intervention Nutrition Support: Glucerna 1.2 at 50ml/hr. Provide 200ml water flush q4h for hypernatremia. Once hypernatremia resolved, 80ml water flush q4h. Kcal 1,440 Protein (gm) 72 Carbohydrates (gm) 137 Fat (gm) 72 Fluid (mL) 966 Fiber (gm) 19 Goal #1 TF tolerance Goal #2 TF (at goal rate) to meet 80- 100% energy and pro needs Goal #3 Wt maintenance and/or gain Follow-Up By: 07/05/21 Additional Comments F/U: new TF, Na and renal labs , diarrhea <YOVANI CORONADO - Last Filed: 07/04/21 10:59> Assessment and Plan Assessment and plan: I saw and evaluated the patient. I agree with the findings and the plan of care as documented in the Nurse Practitioner's~note, with the following corrections and additions. Hospitalist Physical - Constitutional Vitals: Temp Pulse Resp BP Pulse Ox 98.5 F 96 H 14 152/83 100 07/04/21 07:17 07/04/21 10:21 07/04/21 10:21 07/04/21 10:21 07/04/21 10:21 HEART Score - HEART Score Troponin: Troponin T 0.024 ng/mL (0.00-0.029) 07/02/21 00:23 Results - Labs CBC & Chem 7: 07/04/21 05:42 07/04/21 05:42 Labs: Laboratory Last Values WBC 20.7 K/mm3 (4.5-11.0) H 07/04/21 05:42 RBC 3.16 M/mm3 (3.65-5.03) L 07/04/21 05:42 Hgb 9.2 gm/dl (10.1-14.3) L 07/04/21 05:42 Hct 30.1 % (30.3-42.9) L 07/04/21 05:42 MCV 95 fl (79-97) 07/04/21 05:42 MCH 29 pg (28-32) 07/04/21 05:42 MCHC 31 % (30-34) 07/04/21 05:42 RDW 17.6 % (13.2-15.2) H 07/04/21 05:42 Plt Count 395 K/mm3 (140-440) 07/04/21 05:42 Add Manual Diff Complete 07/03/21 04:00 Total Counted 100 07/03/21 04:00 Seg Neutrophils % Flat Folder 07/03/21 04:00 Seg Neuts % (Manual) 84.0 % (40.0-70.0) H 07/03/21 04:00 Band Neutrophils % 5.0 % 07/03/21 04:00 Lymphocytes % (Manual) 2.0 % (13.4-35.0) L 07/03/21 04:00 Monocytes % (Manual) 7.0 % (0.0-7.3) 07/03/21 04:00 Myelocytes % 2.0 % 07/03/21 04:00 Nucleated RBC % Not Reportable 07/03/21 04:00 Seg Neutrophils # Man 18.4 K/mm3 (1.8-7.7) H 07/03/21 04:00 Band Neutrophils # 1.1 K/mm3 07/03/21 04:00 Lymphocytes # (Manual) 0.4 K/mm3 (1.2-5.4) L 07/03/21 04:00 Abs React Lymphs (Man) 0.0 K/mm3 07/03/21 04:00 Monocytes # (Manual) 1.5 K/mm3 (0.0-0.8) H 07/03/21 04:00 Eosinophils # (Manual) 0.0 K/mm3 (0.0-0.4) 07/03/21 04:00 Basophils # (Manual) 0.0 K/mm3 (0.0-0.1) 07/03/21 04:00 Metamyelocytes # 0.0 K/mm3 07/03/21 04:00 Myelocytes # 0.4 K/mm3 07/03/21 04:00 Promyelocytes # 0.0 K/mm3 07/03/21 04:00 Blast Cells # 0.0 K/mm3 07/03/21 04:00 WBC Morphology Not Reportable 07/03/21 04:00 Hypersegmented Neuts Not Reportable 07/03/21 04:00 Hyposegmented Neuts Not Reportable 07/03/21 04:00 Hypogranular Neuts Not Reportable 07/03/21 04:00 Smudge Cells Not Reportable 07/03/21 04:00 Toxic Granulation Not Reportable 07/03/21 04:00 Toxic Vacuolation Not Reportable 07/03/21 04:00 Dohle Bodies Not Reportable 07/03/21 04:00 Pelger-Huet Anomaly Not Reportable 07/03/21 04:00 Lorrie Rods Not Reportable 07/03/21 04:00 Platelet Estimate Consistent w auto 07/03/21 04:00 Clumped Platelets 3+ 07/03/21 04:00 Plt Clumps, EDTA Not Reportable 07/03/21 04:00 Large Platelets Not Reportable 07/03/21 04:00 Giant Platelets Not Reportable 07/03/21 04:00 Platelet Satelliting Not Reportable 07/03/21 04:00 Plt Morphology Comment Platelet clumping 07/03/21 04:00 RBC Morphology Not Reportable 07/03/21 04:00 Dimorphic RBCs Not Reportable 07/03/21 04:00 Polychromasia Not Reportable 07/03/21 04:00 Hypochromasia Not Reportable 07/03/21 04:00 Poikilocytosis Not Reportable 07/03/21 04:00 Anisocytosis Not Reportable 07/03/21 04:00 Microcytosis Not Reportable 07/03/21 04:00 Macrocytosis Not Reportable 07/03/21 04:00 Spherocytes Not Reportable 07/03/21 04:00 Pappenheimer Bodies Not Reportable 07/03/21 04:00 Sickle Cells Not Reportable 07/03/21 04:00 Target Cells Not Reportable 07/03/21 04:00 Tear Drop Cells Not Reportable 07/03/21 04:00 Ovalocytes Not Reportable 07/03/21 04:00 Helmet Cells Not Reportable 07/03/21 04:00 [place] Bodies Not Reportable 07/03/21 04:00 [place] Rings Not Reportable 07/03/21 04:00 [place] Cells Not Reportable 07/03/21 04:00 Bite Cells Not Reportable 07/03/21 04:00 Crenated Cell Not Reportable 07/03/21 04:00 Elliptocytes Not Reportable 07/03/21 04:00 Acanthocytes (Spur) Not Reportable 07/03/21 04:00 Rouleaux Not Reportable 07/03/21 04:00 Hemoglobin C Crystals Not Reportable 07/03/21 04:00 Schistocytes Not Reportable 07/03/21 04:00 Malaria parasites Not Reportable 07/03/21 04:00 Ulises Bodies Not Reportable 07/03/21 04:00 Hem Pathologist Commnt No 07/03/21 04:00 PT 31.6 Sec. (12.2-14.9) H 07/03/21 04:00 INR 2.78 (0.87-1.13) H 07/03/21 04:00 Sodium 151 mmol/L (137-145) H 07/04/21 05:42 Potassium 3.9 mmol/L (3.6-5.0) 07/04/21 05:42 Chloride 120.7 mmol/L (98-107) H 07/04/21 05:42 Carbon Dioxide 16 mmol/L (22-30) L 07/04/21 05:42 Anion Gap 18 mmol/L 07/04/21 05:42 BUN 67 mg/dL (7-17) H 07/04/21 05:42 Creatinine 2.2 mg/dL (0.6-1.2) H 07/04/21 05:42 Estimated GFR 26 ml/min 07/04/21 05:42 BUN/Creatinine Ratio 30 % 07/04/21 05:42 Glucose 225 mg/dL (65-100) H 07/04/21 05:42 POC Glucose 174 mg/dL (70-105) H 07/04/21 07:30 Lactic Acid 2.00 mmol/L (0.7-2.0) 07/03/21 04:30 Calcium 7.4 mg/dL (8.4-10.2) L 07/04/21 05:42 Phosphorus 4.10 mg/dL (2.5-4.5) 07/03/21 04:00 Magnesium 2.00 mg/dL (1.7-2.3) 07/03/21 04:00 Total Bilirubin 0.60 mg/dL (0.1-1.2) 07/02/21 00:23 AST 14 units/L (5-40) 07/02/21 00:23 ALT 8 units/L (7-56) 07/02/21 00:23 Alkaline Phosphatase 118 units/L (35-129) 07/02/21 00:23 Troponin T 0.024 ng/mL (0.00-0.029) 07/02/21 00:23 Total Protein 6.4 g/dL (6.3-8.2) 07/02/21 00:23 Albumin 2.8 g/dL (3.9-5) L 07/02/21 00:23 Albumin/Globulin Ratio 0.8 % 07/02/21 00:23 Procalcitonin 4.12 ng/mL (<0.15) 07/03/21 06:06 Urine Color Janey (Yellow) 07/02/21 04:39 Urine Turbidity Cloudy (Clear) 07/02/21 04:39 Urine pH 5.0 (5.0-7.0) 07/02/21 04:39 Ur Specific [place] 1.017 (1.003-1.030) 07/02/21 04:39 Urine Protein 100 mg/dl mg/dL (Negative) 07/02/21 04:39 Urine Glucose (UA) 50 mg/dL (Negative) 07/02/21 04:39 Urine Ketones Neg mg/dL (Negative) 07/02/21 04:39 Urine Blood Mod (Negative) 07/02/21 04:39 Urine Nitrite Neg (Negative) 07/02/21 04:39 Urine Bilirubin Neg (Negative) 07/02/21 04:39 Urine Urobilinogen 2.0 mg/dL (<2.0) 07/02/21 04:39 Ur Leukocyte Esterase Mod (Negative) 07/02/21 04:39 Urine WBC (Auto) 52.0 /HPF (0.0-6.0) H 07/02/21 04:39 Urine RBC (Auto) 22.0 /HPF (0.0-6.0) 07/02/21 04:39 U Epithel Cells (Auto) 7.0 /HPF (0-13.0) 07/02/21 04:39 Urine Bacteria (Auto) 1+ /HPF (Negative) 07/02/21 04:39 Urine WBC Clumps 2+ /HPF 07/02/21 04:39 Hyaline Casts 2 /LPF 07/02/21 04:39 Urine Mucus Few /HPF 07/02/21 04:39 Urine Yeast (Budding) 2+ /HPF 07/02/21 04:39 Urine Eosinophils None seen (None Seen) 07/03/21 Unknown Urine Creatinine 68.3 mg/dL (0.1-20.0) H 07/03/21 Unknown Urine Sodium 27 mmol/L 07/03/21 Unknown Fraction Sodium Excret 0.7 07/03/21 Unknown C. difficile Tox (PCR) Positive (Negative) 07/02/21 Unknown Coronavirus (PCR) Positive (Negative) A 07/03/21 Unknown Microbiology: Microbiology 07/02/21 00:55 Peripheral/Venous Blood Culture - Preliminary NO GROWTH AFTER 48 HOURS 07/02/21 00:23 Peripheral/Venous Blood Culture - Preliminary NO GROWTH AFTER 48 HOURS 07/03/21 16:00 Stool Stool Occult Blood (IFEANYI) - Final 07/02/21 04:39 Urine,Clean Catch Urine Culture - Preliminary NO GROWTH AFTER 24 HOURS Harris/IV: Voiding Method External Female Catheter Active Medications - Current Medications Current Medications: Generic Name Dose Route Start Last Admin Trade Name Freq PRN Reason Stop Dose Admin Acetaminophen 650 mg 07/02/21 04:11 Acetaminophen 650 Mg Rect Supp IA Q6H PRN Pain MILD(1-3)/Fever >100.5/COLIN Lipase/Protease/Amylase 1 each 07/03/21 12:12 Lipase 10,500/Protease 25,000/Amylase 43,750 (Units) Dr Olegario FEEDTUBE PRN PRN For Clogged Feeding Tube Sodium Bicarbonate 75 meq/ 1,075 mls @ 100 mls/hr 07/03/21 10:00 07/04/21 10:01 Dextrose IV 100 mls/hr DIRECT HEBERT Administration Insulin Human Lispro 0 unit 07/04/21 09:00 07/04/21 08:57 Insulin Lispro 100 Unit/Ml SUB-Q Not Given Q6HR HEBERT Protocol Magnesium Hydroxide 30 ml 07/02/21 04:11 Magnesium Hydroxide (Mom) Oral Liqd Udc PO Q4H PRN Constipation Morphine Sulfate 2 mg 07/02/21 04:11 Morphine 2 Mg/1 Ml Inj IV Q4H PRN Pain, Moderate (4-6) Morphine Sulfate 4 mg 07/02/21 04:11 Morphine 4 Mg/1 Ml Inj IV Q4H PRN Pain , Severe (7-10) Ondansetron HCl 4 mg 07/02/21 04:11 Ondansetron 4 Mg/2 Ml Inj IV Q8H PRN Nausea And Vomiting Pantoprazole Sodium 40 mg 07/02/21 12:00 07/04/21 09:01 Pantoprazole 40 Mg Inj IV 40 mg BID HEBERT Administration Simple Syrup 15 ml 07/03/21 12:12 Simple Syrup 15 Ml FEEDTUBE PRN PRN Hypoglycemia Simple Syrup 30 ml 07/03/21 12:12 Simple Syrup 15 Ml FEEDTUBE PRN PRN Hypoglycemia Sodium Bicarbonate 325 mg 07/03/21 12:12 Sodium Bicarbonate 325 Mg Tab FEEDTUBE PRN PRN For Clogged Feeding Tube Sodium Chloride 10 ml 07/02/21 10:00 07/04/21 09:02 Sodium Chloride 0.9% 10 Ml Flush Syringe IV 10 ml BID HEBERT Administration Sodium Chloride 10 ml 07/02/21 04:11 Sodium Chloride 0.9% 10 Ml Flush Syringe IV PRN PRN LINE FLUSH Vancomycin HCl 125 mg 07/03/21 08:00 07/04/21 07:50 Vancomycin 250 Mg/10 Ml Oral Liqd PO 07/13/21 00:01 125 mg Q6HR HEBERT Administration Protocol Nutrition/Malnutrition Assess - Dietary Evaluation Nutrition/Malnutrition Findings: Nutrition Notes Start: 07/02/21 13:56 Freq: Status: Active Protocol: Document 07/03/21 11:52 MARCE (Rec: 07/03/21 12:12 NHALL [id number]) Nutrition Notes Need for Assessment generated from: MD Order,shift nurse manager,MST Initial or Follow up Reassessment Current Diagnosis Acute Kidney Injury,Sepsis, Hypertension Other Pertinent Diagnosis AMS, Sacral PU, Recent COVID- 19 Current Diet NPO Labs/Tests Na 152 BUN 78 Cr 2.9 BG 179 Ca 6.6 (adjusted 7.56) Pertinent Medications Protonix, 75mEq Na bicarb in D5W at 100ml/hr Height 5 ft 6 in Weight 59.874 kg [place] Body Weight (kg) 59.09 BMI 21.3 Weight Status Underweight Subjective/Other Information RD consulted for TF; pt also screened for malnutrition risk , skin risk (Abdirizak score: 14) and hx of receiving NT support. Burn Absent Trauma Absent GI Symptoms Diarrhea Skin Integrity/Comment quarter size sacral decubitus #1 Nutrition Diagnosis Inadequate energy intake Diagnosis Progress(for reassessment Continues documentation) Is patient on ventilator? No Is Patient Ambulatory and/or Out of Bed No REE-([facility]-confined to bed) 1321.356 Kcal/Kg value to use for calculation 30 Approximate Energy Requirements Using 1796 kcal/Kg Calculation Used for Recommendations Kcal/kg Additional Notes Pro needs 0.8-1.2g/k-72g/ day Fluid needs 1ml/kcal Nutrition Intervention Nutrition Support: Glucerna 1.2 at 50ml/hr. Provide 200ml water flush q4h for hypernatremia. Once hypernatremia resolved, 80ml water flush q4h. Kcal 1,440 Protein (gm) 72 Carbohydrates (gm) 137 Fat (gm) 72 Fluid (mL) 966 Fiber (gm) 19 Goal #1 TF tolerance Goal #2 TF (at goal rate) to meet 80- 100% energy and pro needs Goal #3 Wt maintenance and/or gain Follow-Up By: 07/05/21 Additional Comments F/U: new TF, Na and renal labs , diarrhea
[2021-07-04] MEDS: VANCOMYCIN 250 MG/10 ML ORAL LIQD PO SCH ×5 (01:49→23:37)
[2021-07-04 06:18] LABS: Hematocrit 30.1 % (30.3-42.9); Hemoglobin 9.2 gm/dl (10.1-14.3); Mean Corpuscular HGB Conc 31 % (30-34); Mean Corpuscular Volume 95 fl (79-97); Platelet Count 395 K/mm3 (140-440); Red Blood Count 3.16 M/mm3 (3.65-5.03); Red Cell Distribution Width 17.6 % (13.2-15.2)
[2021-07-04 06:40] LABS: Calcium 7.4 mg/dL (8.4-10.2)
[2021-07-04] MEDS ORDERED: INSULIN LISPRO 100 UNIT/ML SUB-Q SCH (07:30)
[2021-07-04] MEDS: INSULIN LISPRO 100 UNIT/ML SUB-Q SCH ×4 (08:57→23:27)
[2021-07-04] MEDS: PANTOPRAZOLE 40 MG INJ IV SCH ×2 (09:01→23:37)
[2021-07-04] MEDS: SODIUM BICARBONATE 75 MEQ in DEXTROSE 5% IN WATER 1,000 ML IV SCH (10:01)
--- NOTE | 2021-07-04 11:03 | Progress Note ---
Assessment and Plan 1. Acute kidney injury: Vasomotor LENCHO in the setting of hypotension. Renal US negative for any hydro. Baseline renal function normal. Continue IV fluids. Monitor renal function. Creatinine level improving. Avoid nephrotoxic agents. Meds dosage based on GFR. 2. FEN: Metabolic acidosis, 2/2 LENCHO, continue bicarb drip, monitor. Hypernatremia, hypotonic IV fluids, monitor. Replete lytes as needed Monitor lytes and volume status. 3. Sepsis, POA: Sacral decub. Colitis. Follow cultures. 4. Covid-19 infection: Monitor. 5. Acute metabolic encephalopathy: Monitor. 6. C.diff colitis. 7. Sacral pressure ulcer. Wound care. Subjective: Patient was seen and examined at the bedside. In ICU. Examination: General appearance: well-developed, appears stated age, emaciated, no distress, NG tube HEENT: atraumatic Neck: trachea midline Respiratory: ctab Heart: S1S2, regular, no murmur Abdomen: soft, bowel sounds heard, NT Integumentary: no rash on the inspected area Neurologic: alert, able to move extremities Ext: no edema Subjective Date of service: 07/04/21 Principal diagnosis: AMS; Septic shock; Adult FTT; Hypertension; Adult FTT; C- diff colitis Objective - Vital Signs Vital signs: Vital Signs - 12hr 07/03/21 07/03/21 07/03/21 23:10 23:20 23:30 Temperature Pulse Rate 98 H 106 H 92 H Respiratory 19 20 14 Rate Blood Pressure 125/79 125/79 125/79 O2 Sat by Pulse 100 100 100 Oximetry 07/03/21 07/03/21 07/04/21 23:40 23:50 00:00 Temperature 98.3 F Pulse Rate 105 H 97 H 96 H Respiratory 14 17 18 Rate Blood Pressure 125/79 125/79 130/76 O2 Sat by Pulse 100 100 99 Oximetry 07/04/21 07/04/21 07/04/21 00:10 00:20 00:30 Temperature Pulse Rate 87 99 H 96 H Respiratory 13 18 19 Rate Blood Pressure 130/76 130/76 130/76 O2 Sat by Pulse 100 98 99 Oximetry 07/04/21 07/04/21 07/04/21 00:40 00:50 01:00 Temperature Pulse Rate 95 H 98 H 96 H Respiratory 19 16 18 Rate Blood Pressure 130/76 130/76 138/79 O2 Sat by Pulse 99 99 98 Oximetry 07/04/21 07/04/21 07/04/21 01:10 01:15 01:20 Temperature Pulse Rate 104 H 84 103 H Respiratory 19 16 24 Rate Blood Pressure 138/79 138/79 O2 Sat by Pulse 99 94 99 Oximetry 07/04/21 07/04/21 07/04/21 01:30 01:40 01:50 Temperature Pulse Rate 99 H 96 H 97 H Respiratory 23 21 22 Rate Blood Pressure 138/79 138/79 138/79 O2 Sat by Pulse 100 100 100 Oximetry 07/04/21 07/04/21 07/04/21 02:01 02:10 02:20 Temperature Pulse Rate 97 H 107 H 98 H Respiratory 23 29 H 23 Rate Blood Pressure 124/59 124/59 124/59 O2 Sat by Pulse 100 100 99 Oximetry 07/04/21 07/04/21 07/04/21 02:30 02:40 02:50 Temperature Pulse Rate 95 H 101 H 99 H Respiratory 16 25 H 24 Rate Blood Pressure 124/59 124/59 124/59 O2 Sat by Pulse 99 98 100 Oximetry 07/04/21 07/04/21 07/04/21 03:00 03:10 03:20 Temperature Pulse Rate 97 H 88 82 Respiratory 18 14 12 Rate Blood Pressure 132/63 132/63 132/63 O2 Sat by Pulse 100 99 99 Oximetry 07/04/21 07/04/21 07/04/21 03:30 03:40 03:50 Temperature Pulse Rate 86 80 100 H Respiratory 12 12 22 Rate Blood Pressure 132/63 132/63 132/63 O2 Sat by Pulse 100 100 100 Oximetry 07/04/21 07/04/21 07/04/21 04:00 04:10 04:20 Temperature 98.0 F Pulse Rate 95 H 92 H 97 H Respiratory 21 19 19 Rate Blood Pressure 130/60 130/60 130/60 O2 Sat by Pulse 100 100 99 Oximetry 07/04/21 07/04/21 07/04/21 04:30 04:40 04:50 Temperature Pulse Rate 96 H 88 82 Respiratory 24 15 14 Rate Blood Pressure 130/60 130/60 130/60 O2 Sat by Pulse 99 100 99 Oximetry 07/04/21 07/04/21 07/04/21 05:00 05:10 05:20 Temperature Pulse Rate 79 82 81 Respiratory 13 12 13 Rate Blood Pressure 125/61 125/61 125/61 O2 Sat by Pulse 100 100 100 Oximetry 07/04/21 07/04/21 07/04/21 05:30 05:40 05:50 Temperature Pulse Rate 77 103 H 91 H Respiratory 13 20 20 Rate Blood Pressure 125/61 125/61 125/61 O2 Sat by Pulse 100 99 100 Oximetry 07/04/21 07/04/21 07/04/21 06:00 06:10 06:20 Temperature Pulse Rate 92 H 106 H 109 H Respiratory 19 26 H 31 H Rate Blood Pressure 125/64 125/64 125/64 O2 Sat by Pulse 98 99 98 Oximetry 07/04/21 07/04/21 07/04/21 06:30 06:40 06:50 Temperature Pulse Rate 99 H 96 H 102 H Respiratory 20 22 25 H Rate Blood Pressure 125/64 125/64 125/64 O2 Sat by Pulse 99 100 99 Oximetry 07/04/21 07/04/21 07/04/21 07:00 07:10 07:17 Temperature 98.5 F Pulse Rate 105 H 94 H Respiratory 26 H 22 Rate Blood Pressure 129/69 129/69 O2 Sat by Pulse 100 100 Oximetry 07/04/21 07/04/21 07/04/21 07:20 07:30 07:40 Temperature Pulse Rate 103 H 98 H 92 H Respiratory 29 H 21 22 Rate Blood Pressure 129/69 129/69 129/69 O2 Sat by Pulse 99 100 100 Oximetry 07/04/21 07/04/21 07/04/21 07:50 08:00 08:10 Temperature Pulse Rate 89 89 101 H Respiratory 20 20 20 Rate Blood Pressure 129/69 129/69 135/68 O2 Sat by Pulse 100 94 100 Oximetry 07/04/21 07/04/21 07/04/21 08:20 08:30 08:40 Temperature Pulse Rate 111 H 110 H 116 H Respiratory 16 31 H 26 H Rate Blood Pressure 135/68 135/68 135/68 O2 Sat by Pulse 98 98 99 Oximetry 07/04/21 07/04/21 07/04/21 08:50 09:00 09:11 Temperature Pulse Rate 111 H 102 H 102 H Respiratory 22 19 Rate Blood Pressure 135/68 135/68 O2 Sat by Pulse 99 99 99 Oximetry 07/04/21 07/04/2107/04/21 09:21 09:31 09:41 Temperature Pulse Rate 102 H 99 H 104 H Respiratory 21 22 26 H Rate Blood Pressure 138/79 138/79 138/79 O2 Sat by Pulse 100 100 100 Oximetry 07/04/21 07/04/21 07/04/21 09:51 10:00 10:11 Temperature Pulse Rate 95 H 99 H 100 H Respiratory 18 17 19 Rate Blood Pressure 138/79 152/83 152/83 O2 Sat by Pulse 100 100 99 Oximetry 07/04/21 10:21 Temperature Pulse Rate 96 H Respiratory 14 Rate Blood Pressure 152/83 O2 Sat by Pulse 100 Oximetry - Lab 07/04/21 05:42 07/04/21 05:42 Most recent lab results Calcium 7.4 mg/dL (8.4-10.2) L 07/04/21 05:42 Phosphorus 4.10 mg/dL (2.5-4.5) 07/03/21 04:00 Magnesium 2.00 mg/dL (1.7-2.3) 07/03/21 04:00 Urine Creatinine 68.3 mg/dL (0.1-20.0) H 07/03/21 Unknown Urine Sodium 27 mmol/L 07/03/21 Unknown Medications & Allergies - Medications Allergies/Adverse Reactions: Allergies diclofenac Allergy (Unknown, Verified 07/04/21 07:17) Unknown codeine Allergy (Verified 07/04/21 07:17) Nausea Penicillins Allergy (Verified 07/04/21 07:17) Unknown Sulfa (Sulfonamide Antibiotics) Allergy (Verified 07/04/21 07:17) UNABLE TO WALK, MUSCLES Home Medications: Home Medications Medication Instructions Recorded Confirmed Last Taken Type Albuterol Sulfate [Proair 2 puff INHALATION Q4H PRN 07/03/21 07/03/21 Unknown History Respiclick] Apixaban [Eliquis] 5 mg PO BID 07/03/21 07/03/21 Unknown History Ascorbic Acid [Vitamin C] 1 tab PO DAILY 07/03/21 07/03/21 Unknown History Benzonatate [Tessalon Perles] 100 mg PO Q8HR 07/03/21 07/03/21 Unknown History Cholecalciferol (Vitamin D3) 5,000 unit PO DAILY 07/03/21 07/03/21 Unknown History [Vitamin D3] Cyanocobalamin [Vitamin B-12] 1,000 mcg PO DAILY 07/03/21 07/03/21 Unknown History Fluticasone [Flonase] 1 spray INHALATION DAILY 07/03/21 07/03/21 Unknown History Fluticasone/Salmeterol [Advair 1 puff INHALATION BID 07/03/21 07/03/21 Unknown History Diskus 250-50 mcg] Folic Acid [Folvite] 1 mg PO QDAY 07/03/21 07/03/21 Unknown History Ipratropium [Atrovent] 0.5 mg IH Q6HRT 07/03/21 07/03/21 Unknown History Levothyroxine [Synthroid] 100 mcg PO QAM 07/03/21 07/03/21 Unknown History Metoprolol Tartrate 12.5 mg PO BID 07/03/21 07/03/21 Unknown History Montelukast Sodium 10 mg PO HS 07/03/21 07/03/21 Unknown History Vitamin B Complex [Balanced B-50] 1 each PO DAILY 07/03/21 07/03/21 Unknown History dronabinoL [Dronabinol] 2.5 mg PO BID 07/03/21 07/03/21 Unknown History lisinopriL [Lisinopril] 10 mg PO DAILY 07/03/21 07/03/21 Unknown History Active Medications: Generic Name Dose Route Start Last Admin Trade Name Freq PRN Reason Stop Dose Admin Acetaminophen 650 mg 07/02/21 04:11 Acetaminophen 650 Mg Rect Supp NV Q6H PRN Pain MILD(1-3)/Fever >100.5/COLIN Lipase/Protease/Amylase 1 each 07/03/21 12:12 Lipase 10,500/Protease 25,000/Amylase 43,750 (Units) Dr Melvin FEEDTUBE PRN PRN For Clogged Feeding Tube Sodium Bicarbonate 75 meq/ 1,075 mls @ 100 mls/hr 07/03/21 10:00 07/04/21 10:01 Dextrose IV 100 mls/hr DIRECT HEBERT Administration Insulin Human Lispro 0 unit 07/04/21 09:00 07/04/21 08:57 Insulin Lispro 100 Unit/Ml SUB-Q Not Given Q6HR HEBERT Protocol Magnesium Hydroxide 30 ml 07/02/21 04:11 Magnesium Hydroxide (Mom) Oral Liqd Udc PO Q4H PRN Constipation Morphine Sulfate 2 mg 07/02/21 04:11 Morphine 2 Mg/1 Ml Inj IV Q4H PRN Pain, Moderate (4-6) Morphine Sulfate 4 mg 07/02/21 04:11 Morphine 4 Mg/1 Ml Inj IV Q4H PRN Pain , Severe (7-10) Ondansetron HCl 4 mg 07/02/21 04:11 Ondansetron 4 Mg/2 Ml Inj IV Q8H PRN Nausea And Vomiting Pantoprazole Sodium 40 mg 07/02/21 12:00 07/04/21 09:01 Pantoprazole 40 Mg Inj IV 40 mg BID HEBERT Administration Simple Syrup 15 ml 07/03/21 12:12 Simple Syrup 15 Ml FEEDTUBE PRN PRN Hypoglycemia Simple Syrup 30 ml 07/03/21 12:12 Simple Syrup 15 Ml FEEDTUBE PRN PRN Hypoglycemia Sodium Bicarbonate 325 mg 07/03/21 12:12 Sodium Bicarbonate 325 Mg Tab FEEDTUBE PRN PRN For Clogged Feeding Tube Sodium Chloride 10 ml 07/02/21 10:00 07/04/21 09:02 Sodium Chloride 0.9% 10 Ml Flush Syringe IV 10 ml BID HEBERT Administration Sodium Chloride 10 ml 07/02/21 04:11 Sodium Chloride 0.9% 10 Ml Flush Syringe IV PRN PRN LINE FLUSH Vancomycin HCl 125 mg 07/03/21 08:00 07/04/21 07:50 Vancomycin 250 Mg/10 Ml Oral Liqd PO 07/13/21 00:01 125 mg Q6HR HEBERT Administration Protocol
--- NOTE | 2021-07-04 11:06 | Progress Note ---
<TRAVIS MELGOZA - Last Filed: 07/04/21 16:51> Assessment and Plan Assessment and plan: This is a 80-year-old AA female with a past medical history of HTN, hypothyroidism, GERD, and asthma who was sent to the hospital for a custodial facility for decreased responsiveness X3days. Patient was found to be septic, severely dehydrated, and in LENCHO. Patient was admitted in the ICU for further management. Hospital Course to Date: 07/03/21- Patient is lethargic and confused, on 2L NC. Cdiff came back positive will continue current tx with PO Vanco. Patient is too lethargic for PO intake, NGT inserted for meds and nutrition. Continue current IVF for now and continue to monitor renal function, Nephro is on the case. 07/04/21- Patient is a lot more awake this am, AAO, following commands. Continue PO vanco and cont IVF for now. Will D/C right femoral CVC then patient is stable for transfer to the floor. Assessment and Plan #Acute Metabolic Encephalopathy - Probably due to infection - Awake and alert this am, following commands - Avoid benzodiazepine to reduce the possibility of delirium - Prn analgesia for pain management - Maintenance of sleep-wake cycle #Hypotension- resolved #Septic Shock-improved #Hypovolemic Shock-improved - Patient s/p IVF boluses - No longer on pressors - Maintain adequate perfusion - Continue rehydration with cont. IVF - Continue blood pressure monitor per protocol - Maintain MAP above 65 - SCDs for VTE proph #Respiratory Insufficiency - 07/01 Chest x-ray shows mild bibasilar scarring versus atelectasis. No pneumonia. - Recently treated for COIVD PNA, was D/C on O2 supplement - Currently on 2L NC SPO2 at 100% - COVID swab positive - CCM consulted, appreciate recommendations - Aspiration precaution HOB above 30 - PRN CXR per CCM - Continue SPO2 monitoring for SPO2 goal above 92% #GI:Clostridium difficile colitis #H/o GERD #H/o GI Bleed - Recent Hosoitalization for COVID for longer Abx - C.diff positive - Continue PO Vanco via NGT - Enteral nutrition initiated - Continue PPI- Protonix BID - GI on consult #Anemia #H/o GI Bleed - Report of bloody stools from SNF - will sent occult stools - H&H is currently stable - No AC at this time - SCDs to bilateral lower extremities while in bed -Trend CBC - GI on consult, no intervention at this time #Acute Kidney Injury (LENCHO) most likely vasomotor 2/2 septic Shock #Hypovolemic Shock #Dehydration #Hypernatremia - Patient recent D/C from hospital, Scr was 1.1 - Scr. as high as 4.6, 2.9 this am - 07/03 FENa 0.8%, Pre- renal - Nephrology on consult, appreciated recommendation - Strict intake and output - Avoid nephrotoxic medications; Renally dose medications - Continue IVF for now - Monitor and replace electrolytes as needed #Sepsis #GI:Clostridium difficile colitis #Leukocytosis #Sacral pressure ulcer #Lactic Acidosis- resolved - Lactic acidosis as high as 5.90, trend down to 2 - Wbcs 21.9 this am, TMAX 99.2 - 07/02 B.CultX2 pending, Urine cult pending - Continue rehydration with cont. IVF - ID on consult - Continue current ABx regimen per ID - Continue to F/U on B.cult - Daily CBC monitor #Endo: Hypoglycemia - BG as low as 61 - Probably due to poor PO intake - POCT BG check Q6hrs - Hypoglycemic Protocol - Avoid Hypoglycemia The high probability of a clinically significant, sudden or life threatening deterioration of the [Neuro, GI, ID] system(s) required my full and direct attention, intervention and personal management. The aggregate critical care time was [60] minutes. This time is in addition to time spent performing reported procedures but includes the following: [x] Data Review and interpretation [x] Patient assessment and monitoring of vital signs [x] Documentation [x] Medication orders and management Disposition Plan: ICU Total Time Spent with Patient (Minutes): 60 History Interval history: Patient is seen and examined at the bedside. A lot more awake this morning following commands, stated she is feeling a lot better. ANA PAULA overnight Hospitalist Physical - Constitutional Vitals: Temp Pulse Resp BP Pulse Ox 98.5 F 96 H 14 152/83 100 07/04/21 07:17 07/04/21 10:21 07/04/21 10:21 07/04/21 10:21 07/04/21 10:21 General appearance: Present: no acute distress, well-nourished, cachectic - EENT Eyes: Present: PERRL, EOM intact ENT: hearing intact, other (Dry oral mucosa) - Neck Neck: Present: normal ROM - Respiratory Respiratory effort: normal Respiratory: bilateral: diminished - Cardiovascular Rhythm: regular Heart Sounds: Present: S1 & S2 - Extremities Extremities: no ischemia, pulses intact, pulses symmetrical Peripheral Pulses: within normal limits - Abdominal General gastrointestinal: soft, non-tender, normal bowel sounds - Integumentary Integumentary: Present: warm, dry - Psychiatric Psychiatric: appropriate mood/affect, cooperative - Neurologic Neurologic: CNII-XII intact, moves all extremities - Allied Health Allied health notes reviewed: nursing HEART Score - HEART Score Troponin: Troponin T 0.024 ng/mL (0.00-0.029) 07/02/21 00:23 Results - Labs CBC & Chem 7: 07/04/21 05:42 07/04/21 05:42 Labs: Laboratory Last Values WBC 20.7 K/mm3 (4.5-11.0) H 07/04/21 05:42 RBC 3.16 M/mm3 (3.65-5.03) L 07/04/21 05:42 Hgb 9.2 gm/dl (10.1-14.3) L 07/04/21 05:42 Hct 30.1 % (30.3-42.9) L 07/04/21 05:42 MCV 95 fl (79-97) 07/04/21 05:42 MCH 29 pg (28-32) 07/04/21 05:42 MCHC 31 % (30-34) 07/04/21 05:42 RDW 17.6 % (13.2-15.2) H 07/04/21 05:42 Plt Count 395 K/mm3 (140-440) 07/04/21 05:42 Add Manual Diff Complete 07/03/21 04:00 Total Counted 100 07/03/21 04:00 Seg Neutrophils % Court Operations Clerk 07/03/21 04:00 Seg Neuts % (Manual) 84.0 % (40.0-70.0) H 07/03/21 04:00 Band Neutrophils % 5.0 % 07/03/21 04:00 Lymphocytes % (Manual) 2.0 % (13.4-35.0) L 07/03/21 04:00 Monocytes % (Manual) 7.0 % (0.0-7.3) 07/03/21 04:00 Myelocytes % 2.0 % 07/03/21 04:00 Nucleated RBC % Not Reportable 07/03/21 04:00 Seg Neutrophils # Man 18.4 K/mm3 (1.8-7.7) H 07/03/21 04:00 Band Neutrophils # 1.1 K/mm3 07/03/21 04:00 Lymphocytes # (Manual) 0.4 K/mm3 (1.2-5.4) L 07/03/21 04:00 Abs React Lymphs (Man) 0.0 K/mm3 07/03/21 04:00 Monocytes # (Manual) 1.5 K/mm3 (0.0-0.8) H 07/03/21 04:00 Eosinophils # (Manual) 0.0 K/mm3 (0.0-0.4) 07/03/21 04:00 Basophils # (Manual) 0.0 K/mm3 (0.0-0.1) 07/03/21 04:00 Metamyelocytes # 0.0 K/mm3 07/03/21 04:00 Myelocytes # 0.4 K/mm3 07/03/21 04:00 Promyelocytes # 0.0 K/mm3 07/03/21 04:00 Blast Cells # 0.0 K/mm3 07/03/21 04:00 WBC Morphology Not Reportable 07/03/21 04:00 Hypersegmented Neuts Not Reportable 07/03/21 04:00 Hyposegmented Neuts Not Reportable 07/03/21 04:00 Hypogranular Neuts Not Reportable 07/03/21 04:00 Smudge Cells Not Reportable 07/03/21 04:00 Toxic Granulation Not Reportable 07/03/21 04:00 Toxic Vacuolation Not Reportable 07/03/21 04:00 Dohle Bodies Not Reportable 07/03/21 04:00 Pelger-Huet Anomaly Not Reportable 07/03/21 04:00 Lorrie Rods Not Reportable 07/03/21 04:00 Platelet Estimate Consistent w auto 07/03/21 04:00 Clumped Platelets 3+ 07/03/21 04:00 Plt Clumps, EDTA Not Reportable 07/03/21 04:00 Large Platelets Not Reportable 07/03/21 04:00 Giant Platelets Not Reportable 07/03/21 04:00 Platelet Satelliting Not Reportable 07/03/21 04:00 Plt Morphology Comment Platelet clumping 07/03/21 04:00 RBC Morphology Not Reportable 07/03/21 04:00 Dimorphic RBCs Not Reportable 07/03/21 04:00 Polychromasia Not Reportable 07/03/21 04:00 Hypochromasia Not Reportable 07/03/21 04:00 Poikilocytosis Not Reportable 07/03/21 04:00 Anisocytosis Not Reportable 07/03/21 04:00 Microcytosis Not Reportable 07/03/21 04:00 Macrocytosis Not Reportable 07/03/21 04:00 Spherocytes Not Reportable 07/03/21 04:00 Pappenheimer Bodies Not Reportable 07/03/21 04:00 Sickle Cells Not Reportable 07/03/21 04:00 Target Cells Not Reportable 07/03/21 04:00 Tear Drop Cells Not Reportable 07/03/21 04:00 Ovalocytes Not Reportable 07/03/21 04:00 Helmet Cells Not Reportable 07/03/21 04:00 [place] Bodies Not Reportable 07/03/21 04:00 [place] Rings Not Reportable 07/03/21 04:00 [place] Cells Not Reportable 07/03/21 04:00 Bite Cells Not Reportable 07/03/21 04:00 Crenated Cell Not Reportable 07/03/21 04:00 Elliptocytes Not Reportable 07/03/21 04:00 Acanthocytes (Spur) Not Reportable 07/03/21 04:00 Rouleaux Not Reportable 07/03/21 04:00 Hemoglobin C Crystals Not Reportable 07/03/21 04:00 Schistocytes Not Reportable 07/03/21 04:00 Malaria parasites Not Reportable 07/03/21 04:00 Ulises Bodies Not Reportable 07/03/21 04:00 Hem Pathologist Commnt No 07/03/21 04:00 PT 31.6 Sec. (12.2-14.9) H 07/03/21 04:00 INR 2.78 (0.87-1.13) H 07/03/21 04:00 Sodium 151 mmol/L (137-145) H 07/04/21 05:42 Potassium 3.9 mmol/L (3.6-5.0) 07/04/21 05:42 Chloride 120.7 mmol/L (98-107) H 07/04/21 05:42 Carbon Dioxide 16 mmol/L (22-30) L 07/04/21 05:42 Anion Gap 18 mmol/L 07/04/21 05:42 BUN 67 mg/dL (7-17) H 07/04/21 05:42 Creatinine 2.2 mg/dL (0.6-1.2) H 07/04/21 05:42 Estimated GFR 26 ml/min 07/04/21 05:42 BUN/Creatinine Ratio 30 % 07/04/21 05:42 Glucose 225 mg/dL (65-100) H 07/04/21 05:42 POC Glucose 174 mg/dL (70-105) H 07/04/21 07:30 Lactic Acid 2.00 mmol/L (0.7-2.0) 07/03/21 04:30 Calcium 7.4 mg/dL (8.4-10.2) L 07/04/21 05:42 Phosphorus 4.10 mg/dL (2.5-4.5) 07/03/21 04:00 Magnesium 2.00 mg/dL (1.7-2.3) 07/03/21 04:00 Total Bilirubin 0.60 mg/dL (0.1-1.2) 07/02/21 00:23 AST 14 units/L (5-40) 07/02/21 00:23 ALT 8 units/L (7-56) 07/02/21 00:23 Alkaline Phosphatase 118 units/L (35-129) 07/02/21 00:23 Troponin T 0.024 ng/mL (0.00-0.029) 07/02/21 00:23 Total Protein 6.4 g/dL (6.3-8.2) 07/02/21 00:23 Albumin 2.8 g/dL (3.9-5) L 07/02/21 00:23 Albumin/Globulin Ratio 0.8 % 07/02/21 00:23 Procalcitonin 4.12 ng/mL (<0.15) 07/03/21 06:06 Urine Color Janey (Yellow) 07/02/21 04:39 Urine Turbidity Cloudy (Clear) 07/02/21 04:39 Urine pH 5.0 (5.0-7.0) 07/02/21 04:39 Ur Specific [place] 1.017 (1.003-1.030) 07/02/21 04:39 Urine Protein 100 mg/dl mg/dL (Negative) 07/02/21 04:39 Urine Glucose (UA) 50 mg/dL (Negative) 07/02/21 04:39 Urine Ketones Neg mg/dL (Negative) 07/02/21 04:39 Urine Blood Mod (Negative) 07/02/21 04:39 Urine Nitrite Neg (Negative) 07/02/21 04:39 Urine Bilirubin Neg (Negative) 07/02/21 04:39 Urine Urobilinogen 2.0 mg/dL (<2.0) 07/02/21 04:39 Ur Leukocyte Esterase Mod (Negative) 07/02/21 04:39 Urine WBC (Auto) 52.0 /HPF (0.0-6.0) H 07/02/21 04:39 Urine RBC (Auto) 22.0 /HPF (0.0-6.0) 07/02/21 04:39 U Epithel Cells (Auto) 7.0 /HPF (0-13.0) 07/02/21 04:39 Urine Bacteria (Auto) 1+ /HPF (Negative) 07/02/21 04:39 Urine WBC Clumps 2+ /HPF 07/02/21 04:39 Hyaline Casts 2 /LPF 07/02/21 04:39 Urine Mucus Few /HPF 07/02/21 04:39 Urine Yeast (Budding) 2+ /HPF 07/02/21 04:39 Urine Eosinophils None seen (None Seen) 07/03/21 Unknown Urine Creatinine 68.3 mg/dL (0.1-20.0) H 07/03/21 Unknown Urine Sodium 27 mmol/L 07/03/21 Unknown Fraction Sodium Excret 0.7 07/03/21 Unknown C. difficile Tox (PCR) Positive (Negative) 07/02/21 Unknown Coronavirus (PCR) Positive (Negative) A 07/03/21 Unknown Microbiology: Microbiology 07/02/21 00:55 Peripheral/Venous Blood Culture - Preliminary NO GROWTH AFTER 48 HOURS 07/02/21 00:23 Peripheral/Venous Blood Culture - Preliminary NO GROWTH AFTER 48 HOURS 07/03/21 16:00 Stool Stool Occult Blood (IFEANYI) - Final 07/02/21 04:39 Urine,Clean Catch Urine Culture - Preliminary NO GROWTH AFTER 24 HOURS Harris/IV: Voiding Method External Female Catheter Active Medications - Current Medications Current Medications: Generic Name Dose Route Start Last Admin Trade Name Freq PRN Reason Stop Dose Admin Acetaminophen 650 mg 07/02/21 04:11 Acetaminophen 650 Mg Rect Supp ND Q6H PRN Pain MILD(1-3)/Fever >100.5/COLIN Lipase/Protease/Amylase 1 each 07/03/21 12:12 Lipase 10,500/Protease 25,000/Amylase 43,750 (Units) Dr Cap FEEDTUBE PRN PRN For Clogged Feeding Tube Sodium Bicarbonate 75 meq/ 1,075 mls @ 100 mls/hr 07/03/21 10:00 07/04/21 10:01 Dextrose IV 100 mls/hr DIRECT HEBERT Administration Insulin Human Lispro 0 unit 07/04/21 09:00 07/04/21 08:57 Insulin Lispro 100 Unit/Ml SUB-Q Not Given Q6HR [facility] Protocol Magnesium Hydroxide 30 ml 07/02/21 04:11 Magnesium Hydroxide (Mom) Oral Liqd Udc PO Q4H PRN Constipation Morphine Sulfate 2 mg 07/02/21 04:11 Morphine 2 Mg/1 Ml Inj IV Q4H PRN Pain, Moderate (4-6) Morphine Sulfate 4 mg 07/02/21 04:11 Morphine 4 Mg/1 Ml Inj IV Q4H PRN Pain , Severe (7-10) Ondansetron HCl 4 mg 07/02/21 04:11 Ondansetron 4 Mg/2 Ml Inj IV Q8H PRN Nausea And Vomiting Pantoprazole Sodium 40 mg 07/02/21 12:00 07/04/21 09:01 Pantoprazole 40 Mg Inj IV 40 mg BID HEBERT Administration Simple Syrup 15 ml 07/03/21 12:12 Simple Syrup 15 Ml FEEDTUBE PRN PRN Hypoglycemia Simple Syrup 30 ml 07/03/21 12:12 Simple Syrup 15 Ml FEEDTUBE PRN PRN Hypoglycemia Sodium Bicarbonate 325 mg 07/03/21 12:12 Sodium Bicarbonate 325 Mg Tab FEEDTUBE PRN PRN For Clogged Feeding Tube Sodium Chloride 10 ml 07/02/21 10:00 07/04/21 09:02 Sodium Chloride 0.9% 10 Ml Flush Syringe IV 10 ml BID HEBERT Administration Sodium Chloride 10 ml 07/02/21 04:11 Sodium Chloride 0.9% 10 Ml Flush Syringe IV PRN PRN LINE FLUSH Vancomycin HCl 125 mg 07/03/21 08:00 07/04/21 07:50 Vancomycin 250 Mg/10 Ml Oral Liqd PO 07/13/21 00:01 125 mg Q6HR HEBERT Administration Protocol Nutrition/Malnutrition Assess - Dietary Evaluation Nutrition/Malnutrition Findings: Nutrition Notes Start: 07/02/21 13:56 Freq: Status: Active Protocol: Document 07/03/21 11:52 [facility] (Rec: 07/03/21 12:12 [facility] [id number]) Nutrition Notes Need for Assessment generated from: MD Order,service writer,MST Initial or Follow up Reassessment Current Diagnosis Acute Kidney Injury,Sepsis, Hypertension Other Pertinent Diagnosis AMS, Sacral PU, Recent COVID- 19 Current Diet NPO Labs/Tests Na 152 BUN 78 Cr 2.9 BG 179 Ca 6.6 (adjusted 7.56) Pertinent Medications Protonix, 75mEq Na bicarb in D5W at 100ml/hr Height 5 ft 6 in Weight 59.874 kg [place] Body Weight (kg) 59.09 BMI 21.3 Weight Status Underweight Subjective/Other Information RD consulted for TF; pt also screened for malnutrition risk , skin risk (Abdirizak score: 14) and hx of receiving NT support. Burn Absent Trauma Absent GI Symptoms Diarrhea Skin Integrity/Comment quarter size sacral decubitus #1 Nutrition Diagnosis Inadequate energy intake Diagnosis Progress(for reassessment Continues documentation) Is patient on ventilator? No Is Patient Ambulatory and/or Out of Bed No REE-([facility]-confined to bed) 1321.356 Kcal/Kg value to use for calculation 30 Approximate Energy Requirements Using 1796 kcal/Kg Calculation Used for Recommendations Kcal/kg Additional Notes Pro needs 0.8-1.2g/k-72g/ day Fluid needs 1ml/kcal Nutrition Intervention Nutrition Support: Glucerna 1.2 at 50ml/hr. Provide 200ml water flush q4h for hypernatremia. Once hypernatremia resolved, 80ml water flush q4h. Kcal 1,440 Protein (gm) 72 Carbohydrates (gm) 137 Fat (gm) 72 Fluid (mL) 966 Fiber (gm) 19 Goal #1 TF tolerance Goal #2 TF (at goal rate) to meet 80- 100% energy and pro needs Goal #3 Wt maintenance and/or gain Follow-Up By: 07/05/21 Additional Comments F/U: new TF, Na and renal labs , diarrhea <YOVANI CORONADO - Last Filed: 07/06/21 07:43> Assessment and Plan Assessment and plan: I saw and evaluated the patient. I agree with the findings and the plan of care as documented in the Nurse Practitioner's~note, with the following corrections and additions. Hospitalist Physical - Constitutional Vitals: Temp Pulse Resp BP Pulse Ox 98.6 F 90 16 121/61 96 07/06/21 03:43 07/06/21 03:43 07/06/21 03:43 07/06/21 03:43 07/06/21 03:43 HEART Score - HEART Score Troponin: Troponin T 0.024 ng/mL (0.00-0.029) 07/02/21 00:23 Results - Labs CBC & Chem 7: 07/05/21 13:23 07/05/21 13:23 Labs: Laboratory Last Values WBC 9.9 K/mm3 (4.5-11.0) 07/05/21 13:23 RBC 2.84 M/mm3 (3.65-5.03) L 07/05/21 13:23 Hgb 8.3 gm/dl (10.1-14.3) L 07/05/21 13:23 Hct 27.2 % (30.3-42.9) L 07/05/21 13:23 MCV 96 fl (79-97) 07/05/21 13:23 MCH 29 pg (28-32) 07/05/21 13:23 MCHC 30 % (30-34) 07/05/21 13:23 RDW 17.8 % (13.2-15.2) H 07/05/21 13:23 Plt Count 280 K/mm3 (140-440) 07/05/21 13:23 Add Manual Diff Complete 07/03/21 04:00 Total Counted 100 07/03/21 04:00 Seg Neutrophils % Court Operations Clerk 07/03/21 04:00 Seg Neuts % (Manual) 84.0 % (40.0-70.0) H 07/03/21 04:00 Band Neutrophils % 5.0 % 07/03/21 04:00 Lymphocytes % (Manual) 2.0 % (13.4-35.0) L 07/03/21 04:00 Monocytes % (Manual) 7.0 % (0.0-7.3) 07/03/21 04:00 Myelocytes % 2.0 % 07/03/21 04:00 Nucleated RBC % Not Reportable 07/03/21 04:00 Seg Neutrophils # Man 18.4 K/mm3 (1.8-7.7) H 07/03/21 04:00 Band Neutrophils # 1.1 K/mm3 07/03/21 04:00 Lymphocytes # (Manual) 0.4 K/mm3 (1.2-5.4) L 07/03/21 04:00 Abs React Lymphs (Man) 0.0 K/mm3 07/03/21 04:00 Monocytes # (Manual) 1.5 K/mm3 (0.0-0.8) H 07/03/21 04:00 Eosinophils # (Manual) 0.0 K/mm3 (0.0-0.4) 07/03/21 04:00 Basophils # (Manual) 0.0 K/mm3 (0.0-0.1) 07/03/21 04:00 Metamyelocytes # 0.0 K/mm3 07/03/21 04:00 Myelocytes # 0.4 K/mm3 07/03/21 04:00 Promyelocytes # 0.0 K/mm3 07/03/21 04:00 Blast Cells # 0.0 K/mm3 07/03/21 04:00 WBC Morphology Not Reportable 07/03/21 04:00 Hypersegmented Neuts Not Reportable 07/03/21 04:00 Hyposegmented Neuts Not Reportable 07/03/21 04:00 Hypogranular Neuts Not Reportable 07/03/21 04:00 Smudge Cells Not Reportable 07/03/21 04:00 Toxic Granulation Not Reportable 07/03/21 04:00 Toxic Vacuolation Not Reportable 07/03/21 04:00 Dohle Bodies Not Reportable 07/03/21 04:00 Pelger-Huet Anomaly Not Reportable 07/03/21 04:00 Lorrie Rods Not Reportable 07/03/21 04:00 Platelet Estimate Consistent w auto 07/03/21 04:00 Clumped Platelets 3+ 07/03/21 04:00 Plt Clumps, EDTA Not Reportable 07/03/21 04:00 Large Platelets Not Reportable 07/03/21 04:00 Giant Platelets Not Reportable 07/03/21 04:00 Platelet Satelliting Not Reportable 07/03/21 04:00 Plt Morphology Comment Platelet clumping 07/03/21 04:00 RBC Morphology Not Reportable 07/03/21 04:00 Dimorphic RBCs Not Reportable 07/03/21 04:00 Polychromasia Not Reportable 07/03/21 04:00 Hypochromasia Not Reportable 07/03/21 04:00 Poikilocytosis Not Reportable 07/03/21 04:00 Anisocytosis Not Reportable 07/03/21 04:00 Microcytosis Not Reportable 07/03/21 04:00 Macrocytosis Not Reportable 07/03/21 04:00 Spherocytes Not Reportable 07/03/21 04:00 Pappenheimer Bodies Not Reportable 07/03/21 04:00 Sickle Cells Not Reportable 07/03/21 04:00 Target Cells Not Reportable 07/03/21 04:00 Tear Drop Cells Not Reportable 07/03/21 04:00 Ovalocytes Not Reportable 07/03/21 04:00 Helmet Cells Not Reportable 07/03/21 04:00 [place] Bodies Not Reportable 07/03/21 04:00 [place] Rings Not Reportable 07/03/21 04:00 Tamiko Cells Not Reportable 07/03/21 04:00 Bite Cells Not Reportable 07/03/21 04:00 Crenated Cell Not Reportable 07/03/21 04:00 Elliptocytes Not Reportable 07/03/21 04:00 Acanthocytes (Spur) Not Reportable 07/03/21 04:00 Rouleaux Not Reportable 07/03/21 04:00 Hemoglobin C Crystals Not Reportable 07/03/21 04:00 Schistocytes Not Reportable 07/03/21 04:00 Malaria parasites Not Reportable 07/03/21 04:00 Ulises Bodies Not Reportable 07/03/21 04:00 Hem Pathologist Commnt No 07/03/21 04:00 PT 31.6 Sec. (12.2-14.9) H 07/03/21 04:00 INR 2.78 (0.87-1.13) H 07/03/21 04:00 Sodium 148 mmol/L (137-145) H 07/05/21 13:23 Potassium 3.6 mmol/L (3.6-5.0) 07/05/21 13:23 Chloride 115.5 mmol/L (98-107) H 07/05/21 13:23 Carbon Dioxide 20 mmol/L (22-30) L 07/05/21 13:23 Anion Gap 16 mmol/L 07/05/21 13:23 BUN 38 mg/dL (7-17) H 07/05/21 13:23 Creatinine 1.1 mg/dL (0.6-1.2) 07/05/21 13:23 Estimated GFR 58 ml/min 07/05/21 13:23 BUN/Creatinine Ratio 35 % 07/05/21 13:23 Glucose 199 mg/dL (65-100) H 07/05/21 13:23 POC Glucose 166 mg/dL (70-105) H 07/06/21 05:55 Lactic Acid 2.00 mmol/L (0.7-2.0) 07/03/21 04:30 Calcium 7.6 mg/dL (8.4-10.2) L 07/05/21 13:23 Phosphorus 4.10 mg/dL (2.5-4.5) 07/03/21 04:00 Magnesium 2.00 mg/dL (1.7-2.3) 07/03/21 04:00 Total Bilirubin 0.60 mg/dL (0.1-1.2) 07/02/21 00:23 AST 14 units/L (5-40) 07/02/21 00:23 ALT 8 units/L (7-56) 07/02/21 00:23 Alkaline Phosphatase 118 units/L (35-129) 07/02/21 00:23 Troponin T 0.024 ng/mL (0.00-0.029) 07/02/21 00:23 Total Protein 6.4 g/dL (6.3-8.2) 07/02/21 00:23 Albumin 2.8 g/dL (3.9-5) L 07/02/21 00:23 Albumin/Globulin Ratio 0.8 % 07/02/21 00:23 Procalcitonin 4.12 ng/mL (<0.15) 07/03/21 06:06 Urine Color Janey (Yellow) 07/02/21 04:39 Urine Turbidity Cloudy (Clear) 07/02/21 04:39 Urine pH 5.0 (5.0-7.0) 07/02/21 04:39 Ur Specific [place] 1.017 (1.003-1.030) 07/02/21 04:39 Urine Protein 100 mg/dl mg/dL (Negative) 07/02/21 04:39 Urine Glucose (UA) 50 mg/dL (Negative) 07/02/21 04:39 Urine Ketones Neg mg/dL (Negative) 07/02/21 04:39 Urine Blood Mod (Negative) 07/02/21 04:39 Urine Nitrite Neg (Negative) 07/02/21 04:39 Urine Bilirubin Neg (Negative) 07/02/21 04:39 Urine Urobilinogen 2.0 mg/dL (<2.0) 07/02/21 04:39 Ur Leukocyte Esterase Mod (Negative) 07/02/21 04:39 Urine WBC (Auto) 52.0 /HPF (0.0-6.0) H 07/02/21 04:39 Urine RBC (Auto) 22.0 /HPF (0.0-6.0) 07/02/21 04:39 U Epithel Cells (Auto) 7.0 /HPF (0-13.0) 07/02/21 04:39 Urine Bacteria (Auto) 1+ /HPF (Negative) 07/02/21 04:39 Urine WBC Clumps 2+ /HPF 07/02/21 04:39 Hyaline Casts 2 /LPF 07/02/21 04:39 Urine Mucus Few /HPF 07/02/21 04:39 Urine Yeast (Budding) 2+ /HPF 07/02/21 04:39 Urine Eosinophils None seen (None Seen) 07/03/21 Unknown Urine Creatinine 68.3 mg/dL (0.1-20.0) H 07/03/21 Unknown Urine Sodium 27 mmol/L 07/03/21 Unknown Fraction Sodium Excret 0.7 07/03/21 Unknown C. difficile Tox (PCR) Positive (Negative) 07/02/21 Unknown Coronavirus (PCR) Positive (Negative) A 07/03/21 Unknown Microbiology: Microbiology 07/02/21 00:23 Peripheral/Venous Blood Culture - Preliminary NO GROWTH AFTER 4 DAYS 07/02/21 00:55 Peripheral/Venous Blood Culture - Preliminary NO GROWTH AFTER 4 DAYS Harris/IV: Voiding Method Indwelling Catheter Active Medications - Current Medications Current Medications: Generic Name Dose Route Start Last Admin Trade Name Freq PRN Reason Stop Dose Admin Acetaminophen 650 mg 07/05/21 22:30 07/05/21 22:44 Acetaminophen 325 Mg/10.15 Ml Oral Liqd Unit Dose FEEDTUBE 650 mg Q6H PRN Administration Pain, Mild (1-3) Lipase/Protease/Amylase 1 each 07/03/21 12:12 Lipase 10,500/Protease 25,000/Amylase 43,750 (Units) Dr Olegario FEEDTUBE PRN PRN For Clogged Feeding Tube Sodium Bicarbonate 75 meq/ 1,075 mls @ 100 mls/hr 07/03/21 10:00 07/05/21 18:57 Dextrose IV 100 mls/hr DIRECT HEBERT Administration Insulin Human Lispro 0 unit 07/04/21 09:00 07/06/21 06:25 Insulin Lispro 100 Unit/Ml SUB-Q 3 unit Q6HR HEBERT Administration Protocol Lansoprazole 30 mg 07/05/21 22:00 07/05/21 22:44 Lansoprazole 30 Mg Solutab FEEDTUBE 30 mg BID HEBERT Administration Magnesium Hydroxide 30 ml 07/02/21 04:11 Magnesium Hydroxide (Mom) Oral Liqd Udc PO Q4H PRN Constipation Ondansetron HCl 4 mg 07/02/21 04:11 Ondansetron 4 Mg/2 Ml Inj IV Q8H PRN Nausea And Vomiting Simple Syrup 15 ml 07/03/21 12:12 Simple Syrup 15 Ml FEEDTUBE PRN PRN Hypoglycemia Simple Syrup 30 ml 07/03/21 12:12 Simple Syrup 15 Ml FEEDTUBE PRN PRN Hypoglycemia Sodium Bicarbonate 325 mg 07/03/21 12:12 Sodium Bicarbonate 325 Mg Tab FEEDTUBE PRN PRN For Clogged Feeding Tube Sodium Chloride 10 ml 07/02/21 10:00 07/05/21 22:45 Sodium Chloride 0.9% 10 Ml Flush Syringe IV 10 ml BID HEBERT Administration Sodium Chloride 10 ml 07/02/21 04:11 Sodium Chloride 0.9% 10 Ml Flush Syringe IV PRN PRN LINE FLUSH Vancomycin HCl 125 mg 07/05/21 13:00 07/06/21 06:24 Vancomycin 250 Mg/10 Ml Oral Liqd FEEDTUBE 07/13/21 12:01 125 mg Q6HR HEBERT Administration Protocol Nutrition/Malnutrition Assess - Dietary Evaluation Nutrition/Malnutrition Findings: Nutrition Notes Start: 07/02/21 13:56 Freq: Status: Active Protocol: Document 07/05/21 09:35 [email or web address] (Rec: 07/05/21 09:40 NHALL [id number]) Nutrition Notes Initial or Follow up Reassessment Current Diagnosis Acute Kidney Injury,Sepsis, Hypertension Other Pertinent Diagnosis AMS, Sacral PU, Recent COVID- 19 Current Diet TF - Glucerna 1.2 at 50ml/hr Labs/Tests (07/04) Na 151 BUN 67 Cr 2.2 BG 225 Pertinent Medications Reviewed Height 5 ft 6 in Weight 59.874 kg [place] Body Weight (kg) 59.09 BMI 21.3 Weight Status Underweight Subjective/Other Information Pt transferred to yesterday afternoon. Spoke with pt's RN at 9:33. Pt pulled out feeding tube this am; will get evaluated by [employer] to see if she can eat, as she is alert. Rectal tube remains in place. Burn Absent Trauma Absent GI Symptoms Diarrhea Skin Integrity/Comment quarter size sacral decubitus Minimum of two criteria No #1 Nutrition Diagnosis Inadequate energy intake Diagnosis Progress(for reassessment Continues documentation) Is patient on ventilator? No Is Patient Ambulatory and/or Out of Bed No REE-([facility]-confined to bed) 1321.356 Kcal/Kg value to use for calculation 30 Approximate Energy Requirements Using 1796 kcal/Kg Calculation Used for Recommendations Kcal/kg Additional Notes Pro needs 0.8-1.2g/k-72g/ day Fluid needs 1ml/kcal Nutrition Intervention Change Diet Order: Advance diet if medically feasible Nutrition Support: Resume Glucerna 1.2 at 50ml/hr if unable to advance diet Goal #1 Either advance diet or resume TF to meet nutrient needs Goal #2 Wt maintenance and/or gain Goal #3 Wound healing Follow-Up By: 07/07/21 Additional Comments F/U: diet advancement vs resume TF, labs (Na and renal)
--- NOTE | 2021-07-04 13:25 | Progress Note ---
Assessment and Plan Acute toxic metabolic encephalopathy Acute kidney injury Septic shock Possible hypovolemic shock component Adult failure to thrive Hypertension Leukocytosis Lactic acidosis Possible urinary tract infection Clostridium difficile colitis - seen by GI team (no acute intervention) - get Peripheral access and pull Femoral CVL - transfer to medical floor - continue isolation re: COVID-19 & C-diff - continue Vancomycin for c-diff; de-escalate per ID recommendations - continue care as below otherwise; - prn supplemental oxygen for target O2 sat's > 90% acutely - aspiration precautions - prn bronchodilators with pulmonary hygiene per RT - avoid nephrotoxins, renally dose all medications - avoid benzodiazepine's, reduce the possibility of delirium - AB's per ID rec's - prn analgesia per CPOT score - Maintenance of sleep-wake cycle, avoid delirium - enteral nutritional support at goal rate as tolerated - G.I. & VTE prophylaxis - PT/OT/ROM exercises - continue mobility protocols for pressure ulcer prophylaxis - Monitor hemodynamics closely - continue other care per attending / other consultants - discharge planning ongoing concurrently COVID SPECIFIC INTERVENTIONS - test positive but in recovery - isolation per facility COVID recovery protocol .... Re-evaluate in am & prn Subjective Date of service: 07/04/21 Principal diagnosis: AMS; Septic shock; Adult FTT; Hypertension; Adult FTT; C- diff colitis Interval history: Patient is seen today for: Acute toxic metabolic encephalopathy; Septic shock; Adult FTT; Hypertension; Adult FTT; C-diff colitis Seen and examined at bedside; 24hour events reviewed; nursing and respiratory care staff consulted; no adverse overnight events reported to me; resting peacefully in bed; a little more alert; no N/V/F/C; remains off vasopressors Objective Vital Signs - 12hr 07/04/21 07/04/21 07/04/21 01:30 01:40 01:50 Temperature Pulse Rate 99 H 96 H 97 H Respiratory 23 21 22 Rate Blood Pressure 138/79 138/79 138/79 O2 Sat by Pulse 100 100 100 Oximetry 07/04/21 07/04/21 07/04/21 02:01 02:10 02:20 Temperature Pulse Rate 97 H 107 H 98 H Respiratory 23 29 H 23 Rate Blood Pressure 124/59 124/59 124/59 O2 Sat by Pulse 100 100 99 Oximetry 07/04/21 07/04/21 07/04/21 02:30 02:40 02:50 Temperature Pulse Rate 95 H 101 H 99 H Respiratory 16 25 H 24 Rate Blood Pressure 124/59 124/59 124/59 O2 Sat by Pulse 99 98 100 Oximetry 07/04/21 07/04/21 07/04/21 03:00 03:10 03:20 Temperature Pulse Rate 97 H 88 82 Respiratory 18 14 12 Rate Blood Pressure 132/63 132/63 132/63 O2 Sat by Pulse 100 99 99 Oximetry 07/04/21 07/04/21 07/04/21 03:30 03:40 03:50 Temperature Pulse Rate 86 80 100 H Respiratory 12 12 22 Rate Blood Pressure 132/63 132/63 132/63 O2 Sat by Pulse 100 100 100 Oximetry 07/04/21 07/04/21 07/04/21 04:00 04:10 04:20 Temperature 98.0 F Pulse Rate 95 H 92 H 97 H Respiratory 21 19 19 Rate Blood Pressure 130/60 130/60 130/60 O2 Sat by Pulse 100 100 99 Oximetry 07/04/21 07/04/21 07/04/21 04:30 04:40 04:50 Temperature Pulse Rate 96 H 88 82 Respiratory 24 15 14 Rate Blood Pressure 130/60 130/60 130/60 O2 Sat by Pulse 99 100 99 Oximetry 07/04/21 07/04/21 07/04/21 05:00 05:10 05:20 Temperature Pulse Rate 79 82 81 Respiratory 13 12 13 Rate Blood Pressure 125/61 125/61 125/61 O2 Sat by Pulse 100 100 100 Oximetry 07/04/21 07/04/21 07/04/21 05:30 05:40 05:50 Temperature Pulse Rate 77 103 H 91 H Respiratory 13 20 20 Rate Blood Pressure 125/61 125/61 125/61 O2 Sat by Pulse 100 99 100 Oximetry 07/04/21 07/04/21 07/04/21 06:00 06:10 06:20 Temperature Pulse Rate 92 H 106 H 109 H Respiratory 19 26 H 31 H Rate Blood Pressure 125/64 125/64 125/64 O2 Sat by Pulse 98 99 98 Oximetry 07/04/21 07/04/21 07/04/21 06:30 06:40 06:50 Temperature Pulse Rate 99 H 96 H 102 H Respiratory 20 22 25 H Rate Blood Pressure 125/64 125/64 125/64 O2 Sat by Pulse 99 100 99 Oximetry 07/04/21 07/04/21 07/04/21 07:00 07:10 07:17 Temperature 98.5 F Pulse Rate 105 H 94 H Respiratory 26 H 22 Rate Blood Pressure 129/69 129/69 O2 Sat by Pulse 100 100 Oximetry 07/04/21 07/04/21 07/04/21 07:20 07:30 07:40 Temperature Pulse Rate 103 H 98 H 92 H Respiratory 29 H 21 22 Rate Blood Pressure 129/69 129/69 129/69 O2 Sat by Pulse 99 100 100 Oximetry 07/04/21 07/04/21 07/04/21 07:50 08:00 08:10 Temperature Pulse Rate 89 89 101 H Respiratory 20 20 20 Rate Blood Pressure 129/69 129/69 135/68 O2 Sat by Pulse 100 94 100 Oximetry 07/04/21 07/04/21 07/04/21 08:20 08:30 08:40 Temperature Pulse Rate 111 H 110 H 116 H Respiratory 16 31 H 26 H Rate Blood Pressure 135/68 135/68 135/68 O2 Sat by Pulse 98 98 99 Oximetry 07/04/21 07/04/21 07/04/21 08:50 09:00 09:11 Temperature Pulse Rate 111 H 102 H 102 H Respiratory 22 19 Rate Blood Pressure 135/68 135/68 O2 Sat by Pulse 99 99 99 Oximetry 07/04/21 07/04/21 07/04/21 09:21 09:31 09:41 Temperature Pulse Rate 102 H 99 H 104 H Respiratory 21 22 26 H Rate Blood Pressure 138/79 138/79 138/79 O2 Sat by Pulse 100 100 100 Oximetry 07/04/21 07/04/21 07/04/21 09:51 10:00 10:11 Temperature Pulse Rate 95 H 99 H 100 H Respiratory 18 17 19 Rate Blood Pressure 138/79 152/83 152/83 O2 Sat by Pulse 100 100 99 Oximetry 07/04/21 07/04/21 10:21 12:35 Temperature 98.4 F Pulse Rate 96 H Respiratory 14 Rate Blood Pressure 152/83 O2 Sat by Pulse 100 Oximetry Constitutional: no acute distress, other (eldetly female without increased respiratory effort at rest) Eyes: non-icteric ENT: oropharynx dry Neck: supple, no lymphadenopathy, no JVD Effort: normal Ascultation: Bilateral: clear, diminished breath sounds Percussion: Bilateral: not dull Cardiovascular: regular rate and rhythm Gastrointestinal: normoactive bowel sounds, soft, non-tender, non-distended Integumentary: normal Extremities: no cyanosis, no edema, pulses normal, no ischemia or petechiae Neurologic: non-focal exam (grossly), pupils equal and round, unable to assess Psychiatric: other (unable to assess re: AMS) CBC and BMP: 07/05/21 13:23 07/05/21 13:23 ABG, PT/INR, D-dimer: PT/INR, D-dimer PT 31.6 Sec. (12.2-14.9) H 07/03/21 04:00 INR 2.78 (0.87-1.13) H 07/03/21 04:00 Abnormal lab findings: Abnormal Labs 07/02/21 07/02/21 07/02/21 00:23 00:23 00:23 WBC 21.7 H RBC Hgb Hct RDW 17.0 H Plt Count 583 H Seg Neuts % (Manual) 86.0 H Lymphocytes % (Manual) 5.0 L Monocytes % (Manual) 9.0 H Seg Neutrophils # Man 18.7 H Lymphocytes # (Manual) 1.1 L Monocytes # (Manual) 2.0 H PT INR Sodium 146 H Chloride 107.1 H Carbon Dioxide 15 L BUN 80 H Creatinine 4.6 H Glucose 211 H POC Glucose Lactic Acid 5.70 H* Calcium Albumin 2.8 L Urine WBC (Auto) Urine Creatinine Coronavirus (PCR) 07/02/21 07/02/21 07/02/21 01:45 04:39 05:30 WBC RBC Hgb Hct RDW Plt Count Seg Neuts % (Manual) Lymphocytes % (Manual) Monocytes % (Manual) Seg Neutrophils # Man Lymphocytes # (Manual) Monocytes # (Manual) PT INR Sodium Chloride Carbon Dioxide BUN Creatinine Glucose POC Glucose Lactic Acid 5.50 H* 5.90 H* Calcium Albumin Urine WBC (Auto) 52.0 H Urine Creatinine Coronavirus (PCR) 07/02/21 07/03/21 07/03/21 11:56 01:09 01:59 WBC RBC Hgb Hct RDW Plt Count Seg Neuts % (Manual) Lymphocytes % (Manual) Monocytes % (Manual) Seg Neutrophils # Man Lymphocytes # (Manual) Monocytes # (Manual) PT INR Sodium Chloride Carbon Dioxide BUN 82 H Creatinine 3.7 H Glucose POC Glucose 61 L 65 L Lactic Acid Calcium Albumin Urine WBC (Auto) Urine Creatinine Coronavirus (PCR) 07/03/21 07/03/21 07/03/21 04:00 04:00 04:00 WBC 21.9 H RBC 3.28 L Hgb 9.6 L Hct RDW 17.7 H Plt Count Seg Neuts % (Manual) 84.0 H Lymphocytes % (Manual) 2.0 L Monocytes % (Manual) Seg Neutrophils # Man 18.4 H Lymphocytes # (Manual) 0.4 L Monocytes # (Manual) 1.5 H PT 31.6 H INR 2.78 H Sodium 152 H Chloride 124.3 H Carbon Dioxide 12 L BUN 78 H Creatinine 2.9 H Glucose 179 H POC Glucose Lactic Acid Calcium 6.6 L D Albumin Urine WBC (Auto) Urine Creatinine Coronavirus (PCR) 07/03/21 07/03/21 07/03/21 04:07 06:28 18:26 WBC RBC Hgb Hct RDW Plt Count Seg Neuts % (Manual) Lymphocytes % (Manual) Monocytes % (Manual) Seg Neutrophils # Man Lymphocytes # (Manual) Monocytes # (Manual) PT INR Sodium Chloride Carbon Dioxide BUN Creatinine Glucose POC Glucose 108 H 117 H 126 H Lactic Acid Calcium Albumin Urine WBC (Auto) Urine Creatinine Coronavirus (PCR) 07/03/21 07/03/21 07/03/21 23:18 Unknown Unknown WBC RBC Hgb Hct RDW Plt Count Seg Neuts % (Manual) Lymphocytes % (Manual) Monocytes % (Manual) Seg Neutrophils # Man Lymphocytes # (Manual) Monocytes # (Manual) PT INR Sodium Chloride Carbon Dioxide BUN Creatinine Glucose POC Glucose 189 H Lactic Acid Calcium Albumin Urine WBC (Auto) Urine Creatinine 68.3 H Coronavirus (PCR) Positive A 07/04/21 07/04/21 07/04/21 05:42 05:42 07:30 WBC 20.7 H RBC 3.16 L Hgb 9.2 L Hct 30.1 L RDW 17.6 H Plt Count Seg Neuts % (Manual) Lymphocytes % (Manual) Monocytes % (Manual) Seg Neutrophils # Man Lymphocytes # (Manual) Monocytes # (Manual) PT INR Sodium 151 H Chloride 120.7 H Carbon Dioxide 16 L BUN 67 H Creatinine 2.2 H Glucose 225 H POC Glucose 174 H Lactic Acid Calcium 7.4 L Albumin Urine WBC (Auto) Urine Creatinine Coronavirus (PCR) 07/04/21 11:32 WBC RBC Hgb Hct RDW Plt Count Seg Neuts % (Manual) Lymphocytes % (Manual) Monocytes % (Manual) Seg Neutrophils # Man Lymphocytes # (Manual) Monocytes # (Manual) PT INR Sodium Chloride Carbon Dioxide BUN Creatinine Glucose POC Glucose 182 H Lactic Acid Calcium Albumin Urine WBC (Auto) Urine Creatinine Coronavirus (PCR) Allied health notes reviewed: nursing
[2021-07-05] MEDS: SODIUM BICARBONATE 75 MEQ in DEXTROSE 5% IN WATER 1,000 ML IV SCH ×2 (04:30→18:57)
[2021-07-05] MEDS: INSULIN LISPRO 100 UNIT/ML SUB-Q SCH ×4 (05:17→23:48)
[2021-07-05] MEDS: VANCOMYCIN 250 MG/10 ML ORAL LIQD PO SCH (05:18)
[2021-07-05] MEDS: PANTOPRAZOLE 40 MG INJ IV SCH (09:14)
--- NOTE | 2021-07-05 10:05 | Progress Note ---
Assessment and Plan Assessment and plan: Assessment and plan: This is a 80-year-old AA female with a past medical history of HTN, hypothyroidism, GERD, and asthma who was sent to the hospital for a alf facility for decreased responsiveness X3days. Patient was found to be septic, severely dehydrated, and in LENCHO. Patient was admitted in the ICU for further management. Hospital Course to Date: 07/03/21- Patient is lethargic and confused, on 2L NC. Cdiff came back positive will continue current tx with PO Vanco. Patient is too lethargic for PO intake, NGT inserted for meds and nutrition. Continue current IVF for now and continue to monitor renal function, Nephro is on the case. 07/04/21- Patient is a lot more awake this am, AAO, following commands. Continue PO vanco and cont IVF for now. Will D/C right femoral CVC then patient is stable for transfer to the floor. 07/05/21 patient seen and examined. Patient is more awake alert no chest pain no shortness of breath. BUN is 67 creatinine 2.2. wbc 20.7. pt is on 2 liters of oxygen nasal canula. pt have a ng tube feeding going on. pt have a urinary cathether and rectal tube. Continue p.o. Vanco and IV fluid. Continue current management. Recheck CBC and BMP in the morning Assessment and Plan #Acute Metabolic Encephalopathy - Probably due to infection - Awake and alert this am, following commands - Avoid benzodiazepine to reduce the possibility of delirium - Prn analgesia for pain management - Maintenance of sleep-wake cycle #Hypotension- resolved #Septic Shock-improved #Hypovolemic Shock-improved - Patient s/p IVF boluses - No longer on pressors - Maintain adequate perfusion - Continue rehydration with cont. IVF - Continue blood pressure monitor per protocol - Maintain MAP above 65 - SCDs for VTE proph #Respiratory Insufficiency - 07/01 Chest x-ray shows mild bibasilar scarring versus atelectasis. No pneumonia. - Recently treated for COIVD PNA, was D/C on O2 supplement - Currently on 2L NC SPO2 at 100% - COVID swab positive - CCM consulted, appreciate recommendations - Aspiration precaution HOB above 30 - PRN CXR per CCM - Continue SPO2 monitoring for SPO2 goal above 92% #GI:Clostridium difficile colitis #H/o GERD #H/o GI Bleed - Recent Hosoitalization for COVID for longer Abx - C.diff positive - Continue PO Vanco via NGT - Enteral nutrition initiated - Continue PPI- Protonix BID - GI on consult #Anemia #H/o GI Bleed - Report of bloody stools from SNF - will sent occult stools - H&H is currently stable - No AC at this time - SCDs to bilateral lower extremities while in bed -Trend CBC - GI on consult, no intervention at this time #Acute Kidney Injury (LENCHO) most likely vasomotor 2/2 septic Shock #Hypovolemic Shock #Dehydration #Hypernatremia - Patient recent D/C from hospital, Scr was 1.1 - Scr. as high as 4.6, 2.9 this am - 07/03 FENa 0.8%, Pre- renal - Nephrology on consult, appreciated recommendation - Strict intake and output - Avoid nephrotoxic medications; Renally dose medications - Continue IVF for now - Monitor and replace electrolytes as needed #Sepsis #GI:Clostridium difficile colitis #Leukocytosis #Sacral pressure ulcer #Lactic Acidosis- resolved - Lactic acidosis as high as 5.90, trend down to 2 - Wbcs 21.9 this am, TMAX 99.2 - 07/02 B.CultX2 pending, Urine cult pending - Continue rehydration with cont. IVF - ID on consult - Continue current ABx regimen per ID - Continue to F/U on B.cult - Daily CBC monitor #Endo: Hypoglycemia - BG as low as 61 - Probably due to poor PO intake - POCT BG check Q6hrs - Hypoglycemic Protocol - Avoid Hypoglycemia The high probability of a clinically significant, sudden or life threatening deterioration of the [Neuro, GI, ID] system(s) required my full and direct attention, intervention and personal management. The aggregate critical care time was [60] minutes. This time is in addition to time spent performing reported procedures but includes the following: [x] Data Review and interpretation [x] Patient assessment and monitoring of vital signs [x] Documentation [x] Medication orders and management Disposition Plan: ICU Total Time Spent with Patient (Minutes): 60 History Interval history: Patient is seen and examined. Lab reviewed. Patient is more awake alert. Denied any complain. No chest pain no shortness of breath. WBC is 20.7. BUN 67 creatinine 2.2. No other problems Hospitalist Physical - Constitutional Vitals: Temp Pulse Resp BP Pulse Ox 98.4 F 62 20 143/84 94 07/05/21 04:46 07/05/21 04:46 07/05/21 05:37 07/05/21 04:46 07/05/21 05:37 General appearance: Present: no acute distress, well-nourished, cachectic - EENT Eyes: Present: PERRL, EOM intact ENT: hearing intact, clear oral mucosa, dentition normal - Neck Neck: Present: supple, normal ROM - Respiratory Respiratory effort: normal Respiratory: bilateral: diminished - Cardiovascular Rhythm: regular Heart Sounds: Present: S1 & S2 - Extremities Extremities: no ischemia, pulses intact, No edema Peripheral Pulses: within normal limits - Abdominal General gastrointestinal: non-tender, non-distended, normal bowel sounds - Integumentary Integumentary: Present: clear, warm, dry - Psychiatric Psychiatric: appropriate mood/affect - Neurologic Neurologic: CNII-XII intact, moves all extremities - Allied Health Allied health notes reviewed: nursing HEART Score - HEART Score Troponin: Troponin T 0.024 ng/mL (0.00-0.029) 07/02/21 00:23 Results - Labs CBC & Chem 7: 07/04/21 05:42 07/04/21 05:42 Labs: Laboratory Last Values WBC 20.7 K/mm3 (4.5-11.0) H 07/04/21 05:42 RBC 3.16 M/mm3 (3.65-5.03) L 07/04/21 05:42 Hgb 9.2 gm/dl (10.1-14.3) L 07/04/21 05:42 Hct 30.1 % (30.3-42.9) L 07/04/21 05:42 MCV 95 fl (79-97) 07/04/21 05:42 MCH 29 pg (28-32) 07/04/21 05:42 MCHC 31 % (30-34) 07/04/21 05:42 RDW 17.6 % (13.2-15.2) H 07/04/21 05:42 Plt Count 395 K/mm3 (140-440) 07/04/21 05:42 Add Manual Diff Complete 07/03/21 04:00 Total Counted 100 07/03/21 04:00 Seg Neutrophils % Painter Assistant 07/03/21 04:00 Seg Neuts % (Manual) 84.0 % (40.0-70.0) H 07/03/21 04:00 Band Neutrophils % 5.0 % 07/03/21 04:00 Lymphocytes % (Manual) 2.0 % (13.4-35.0) L 07/03/21 04:00 Monocytes % (Manual) 7.0 % (0.0-7.3) 07/03/21 04:00 Myelocytes % 2.0 % 07/03/21 04:00 Nucleated RBC % Not Reportable 07/03/21 04:00 Seg Neutrophils # Man 18.4 K/mm3 (1.8-7.7) H 07/03/21 04:00 Band Neutrophils # 1.1 K/mm3 07/03/21 04:00 Lymphocytes # (Manual) 0.4 K/mm3 (1.2-5.4) L 07/03/21 04:00 Abs React Lymphs (Man) 0.0 K/mm3 07/03/21 04:00 Monocytes # (Manual) 1.5 K/mm3 (0.0-0.8) H 07/03/21 04:00 Eosinophils # (Manual) 0.0 K/mm3 (0.0-0.4) 07/03/21 04:00 Basophils # (Manual) 0.0 K/mm3 (0.0-0.1) 07/03/21 04:00 Metamyelocytes # 0.0 K/mm3 07/03/21 04:00 Myelocytes # 0.4 K/mm3 07/03/21 04:00 Promyelocytes # 0.0 K/mm3 07/03/21 04:00 Blast Cells # 0.0 K/mm3 07/03/21 04:00 WBC Morphology Not Reportable 07/03/21 04:00 Hypersegmented Neuts Not Reportable 07/03/21 04:00 Hyposegmented Neuts Not Reportable 07/03/21 04:00 Hypogranular Neuts Not Reportable 07/03/21 04:00 Smudge Cells Not Reportable 07/03/21 04:00 Toxic Granulation Not Reportable 07/03/21 04:00 Toxic Vacuolation Not Reportable 07/03/21 04:00 Dohle Bodies Not Reportable 07/03/21 04:00 Pelger-Huet Anomaly Not Reportable 07/03/21 04:00 Lorrie Rods Not Reportable 07/03/21 04:00 Platelet Estimate Consistent w auto 07/03/21 04:00 Clumped Platelets 3+ 07/03/21 04:00 Plt Clumps, EDTA Not Reportable 07/03/21 04:00 Large Platelets Not Reportable 07/03/21 04:00 Giant Platelets Not Reportable 07/03/21 04:00 Platelet Satelliting Not Reportable 07/03/21 04:00 Plt Morphology Comment Platelet clumping 07/03/21 04:00 RBC Morphology Not Reportable 07/03/21 04:00 Dimorphic RBCs Not Reportable 07/03/21 04:00 Polychromasia Not Reportable 07/03/21 04:00 Hypochromasia Not Reportable 07/03/21 04:00 Poikilocytosis Not Reportable 07/03/21 04:00 Anisocytosis Not Reportable 07/03/21 04:00 Microcytosis Not Reportable 07/03/21 04:00 Macrocytosis Not Reportable 07/03/21 04:00 Spherocytes Not Reportable 07/03/21 04:00 Pappenheimer Bodies Not Reportable 07/03/21 04:00 Sickle Cells Not Reportable 07/03/21 04:00 Target Cells Not Reportable 07/03/21 04:00 Tear Drop Cells Not Reportable 07/03/21 04:00 Ovalocytes Not Reportable 07/03/21 04:00 Helmet Cells Not Reportable 07/03/21 04:00 [place] Flat Bodies Not Reportable 07/03/21 04:00 Eaton Rings Not Reportable 07/03/21 04:00 Tamiko Cells Not Reportable 07/03/21 04:00 Bite Cells Not Reportable 07/03/21 04:00 Crenated Cell Not Reportable 07/03/21 04:00 Elliptocytes Not Reportable 07/03/21 04:00 Acanthocytes (Spur) Not Reportable 07/03/21 04:00 Rouleaux Not Reportable 07/03/21 04:00 Hemoglobin C Crystals Not Reportable 07/03/21 04:00 Schistocytes Not Reportable 07/03/21 04:00 Malaria parasites Not Reportable 07/03/21 04:00 Ulises Bodies Not Reportable 07/03/21 04:00 Hem Pathologist Commnt No 07/03/21 04:00 PT 31.6 Sec. (12.2-14.9) H 07/03/21 04:00 INR 2.78 (0.87-1.13) H 07/03/21 04:00 Sodium 151 mmol/L (137-145) H 07/04/21 05:42 Potassium 3.9 mmol/L (3.6-5.0) 07/04/21 05:42 Chloride 120.7 mmol/L (98-107) H 07/04/21 05:42 Carbon Dioxide 16 mmol/L (22-30) L 07/04/21 05:42 Anion Gap 18 mmol/L 07/04/21 05:42 BUN 67 mg/dL (7-17) H 07/04/21 05:42 Creatinine 2.2 mg/dL (0.6-1.2) H 07/04/21 05:42 Estimated GFR 26 ml/min 07/04/21 05:42 BUN/Creatinine Ratio 30 % 07/04/21 05:42 Glucose 225 mg/dL (65-100) H 07/04/21 05:42 POC Glucose 123 mg/dL (70-105) H 07/05/21 04:51 Lactic Acid 2.00 mmol/L (0.7-2.0) 07/03/21 04:30 Calcium 7.4 mg/dL (8.4-10.2) L 07/04/21 05:42 Phosphorus 4.10 mg/dL (2.5-4.5) 07/03/21 04:00 Magnesium 2.00 mg/dL (1.7-2.3) 07/03/21 04:00 Total Bilirubin 0.60 mg/dL (0.1-1.2) 07/02/21 00:23 AST 14 units/L (5-40) 07/02/21 00:23 ALT 8 units/L (7-56) 07/02/21 00:23 Alkaline Phosphatase 118 units/L (35-129) 07/02/21 00:23 Troponin T 0.024 ng/mL (0.00-0.029) 07/02/21 00:23 Total Protein 6.4 g/dL (6.3-8.2) 07/02/21 00:23 Albumin 2.8 g/dL (3.9-5) L 07/02/21 00:23 Albumin/Globulin Ratio 0.8 % 07/02/21 00:23 Procalcitonin 4.12 ng/mL (<0.15) 07/03/21 06:06 Urine Color Janey (Yellow) 07/02/21 04:39 Urine Turbidity Cloudy (Clear) 07/02/21 04:39 Urine pH 5.0 (5.0-7.0) 07/02/21 04:39 Ur Specific Hamel 1.017 (1.003-1.030) 07/02/21 04:39 Urine Protein 100 mg/dl mg/dL (Negative) 07/02/21 04:39 Urine Glucose (UA) 50 mg/dL (Negative) 07/02/21 04:39 Urine Ketones Neg mg/dL (Negative) 07/02/21 04:39 Urine Blood Mod (Negative) 07/02/21 04:39 Urine Nitrite Neg (Negative) 07/02/21 04:39 Urine Bilirubin Neg (Negative) 07/02/21 04:39 Urine Urobilinogen 2.0 mg/dL (<2.0) 07/02/21 04:39 Ur Leukocyte Esterase Mod (Negative) 07/02/21 04:39 Urine WBC (Auto) 52.0 /HPF (0.0-6.0) H 07/02/21 04:39 Urine RBC (Auto) 22.0 /HPF (0.0-6.0) 07/02/21 04:39 U Epithel Cells (Auto) 7.0 /HPF (0-13.0) 07/02/21 04:39 Urine Bacteria (Auto) 1+ /HPF (Negative) 07/02/21 04:39 Urine WBC Clumps 2+ /HPF 07/02/21 04:39 Hyaline Casts 2 /LPF 07/02/21 04:39 Urine Mucus Few /HPF 07/02/21 04:39 Urine Yeast (Budding) 2+ /HPF 07/02/21 04:39 Urine Eosinophils None seen (None Seen) 07/03/21 Unknown Urine Creatinine 68.3 mg/dL (0.1-20.0) H 07/03/21 Unknown Urine Sodium 27 mmol/L 07/03/21 Unknown Fraction Sodium Excret 0.7 07/03/21 Unknown C. difficile Tox (PCR) Positive (Negative) 07/02/21 Unknown Coronavirus (PCR) Positive (Negative) A 07/03/21 Unknown Microbiology: Microbiology 07/02/21 00:23 Peripheral/Venous Blood Culture - Preliminary NO GROWTH AFTER 72 HOURS 07/02/21 00:55 Peripheral/Venous Blood Culture - Preliminary NO GROWTH AFTER 72 HOURS 07/02/21 04:39 Urine,Clean Catch Urine Culture - Final NO GROWTH AFTER 48 HOURS Harris/IV: Voiding Method External Female Catheter Active Medications - Current Medications Current Medications: Generic Name Dose Route Start Last Admin Trade Name Freq PRN Reason Stop Dose Admin Acetaminophen 650 mg 07/02/21 04:11 Acetaminophen 650 Mg Rect Supp DC Q6H PRN Pain MILD(1-3)/Fever >100.5/COLIN Lipase/Protease/Amylase 1 each 07/03/21 12:12 Lipase 10,500/Protease 25,000/Amylase 43,750 (Units) Dr Cap FEEDTUBE PRN PRN For Clogged Feeding Tube Sodium Bicarbonate 75 meq/ 1,075 mls @ 100 mls/hr 07/03/21 10:00 07/05/21 04:30 Dextrose IV 100 mls/hr DIRECT HEBERT Administration Insulin Human Lispro 0 unit 07/04/21 09:00 07/05/21 05:17 Insulin Lispro 100 Unit/Ml SUB-Q Not Given Q6HR [facility] Protocol Magnesium Hydroxide 30 ml 07/02/21 04:11 Magnesium Hydroxide (Mom) Oral Liqd Udc PO Q4H PRN Constipation Ondansetron HCl 4 mg 07/02/21 04:11 Ondansetron 4 Mg/2 Ml Inj IV Q8H PRN Nausea And Vomiting Pantoprazole Sodium 40 mg 07/02/21 12:00 07/05/21 09:14 Pantoprazole 40 Mg Inj IV 40 mg BID HEBERT Administration Simple Syrup 15 ml 07/03/21 12:12 Simple Syrup 15 Ml FEEDTUBE PRN PRN Hypoglycemia Simple Syrup 30 ml 07/03/21 12:12 Simple Syrup 15 Ml FEEDTUBE PRN PRN Hypoglycemia Sodium Bicarbonate 325 mg 07/03/21 12:12 Sodium Bicarbonate 325 Mg Tab FEEDTUBE PRN PRN For Clogged Feeding Tube Sodium Chloride 10 ml 07/02/21 10:00 07/04/21 23:38 Sodium Chloride 0.9% 10 Ml Flush Syringe IV 10 ml BID HEBERT Administration Sodium Chloride 10 ml 07/02/21 04:11 Sodium Chloride 0.9% 10 Ml Flush Syringe IV PRN PRN LINE FLUSH Vancomycin HCl 125 mg 07/03/21 08:00 07/05/21 05:18 Vancomycin 250 Mg/10 Ml Oral Liqd PO 07/13/21 00:01 125 mg Q6HR HEBERT Administration Protocol Nutrition/Malnutrition Assess - Dietary Evaluation Nutrition/Malnutrition Findings: Nutrition Notes Start: 07/02/21 13:56 Freq: Status: Active Protocol: Document 07/05/21 09:35 MARCE (Rec: 07/05/21 09:40 [facility] [id number]) Nutrition Notes Initial or Follow up Reassessment Current Diagnosis Acute Kidney Injury,Sepsis, Hypertension Other Pertinent Diagnosis AMS, Sacral PU, Recent COVID- 19 Current Diet TF - Glucerna 1.2 at 50ml/hr Labs/Tests (07/04) Na 151 BUN 67 Cr 2.2 BG 225 Pertinent Medications Reviewed Height 5 ft 6 in Weight 59.874 kg [place] Body Weight (kg) 59.09 BMI 21.3 Weight Status Underweight Subjective/Other Information Pt transferred to 3A yesterday afternoon. Spoke with pt's RN at 9:33. Pt pulled out feeding tube this am; will get evaluated by [employer] MANAGER to see if she can eat, as she is alert. Rectal tube remains in place. Burn Absent Trauma Absent GI Symptoms Diarrhea Skin Integrity/Comment quarter size sacral decubitus Minimum of two criteria No #1 Nutrition Diagnosis Inadequate energy intake Diagnosis Progress(for reassessment Continues documentation) Is patient on ventilator? No Is Patient Ambulatory and/or Out of Bed No REE-([facility]-confined to bed) 1321.356 Kcal/Kg value to use for calculation 30 Approximate Energy Requirements Using 1796 kcal/Kg Calculation Used for Recommendations Kcal/kg Additional Notes Pro needs 0.8-1.2g/k-72g/ day Fluid needs 1ml/kcal Nutrition Intervention Change Diet Order: Advance diet if medically feasible Nutrition Support: Resume Glucerna 1.2 at 50ml/hr if unable to advance diet Goal #1 Either advance diet or resume TF to meet nutrient needs Goal #2 Wt maintenance and/or gain Goal #3 Wound healing Follow-Up By: 07/07/21 Additional Comments F/U: diet advancement vs resume TF, labs (Na and renal) - Malnutrition Assessment Minimum of two criteria: Yes - Attestation Statement I have reviewed and agreed w/ Malnutrition eval & tx plan: Yes
--- NOTE | 2021-07-05 13:30 | Progress Note ---
Assessment and Plan 1. Acute kidney injury: Vasomotor LENCHO in the setting of hypotension. Renal US negative for any hydro. Baseline renal function normal. Continue IV fluids. Monitor renal function. Creatinine level is better. Avoid nephrotoxic agents. Meds dosage based on GFR. 2. FEN: Metabolic acidosis, 2/2 LENCHO, improving, monitor. Hypernatremia, improving, monitor. Replete lytes as needed Monitor lytes and volume status. 3. Sepsis, POA: Sacral decub. Colitis. Follow cultures. 4. Covid-19 infection: Monitor. 5. Acute metabolic encephalopathy: Monitor. 6. C.diff colitis. 7. Sacral pressure ulcer. Wound care. Subjective: Patient was seen and examined at the bedside. Examination: General appearance: well-developed, appears stated age, emaciated, no distress, NG tube HEENT: atraumatic Neck: trachea midline Respiratory: ctab Heart: S1S2, regular, no murmur Abdomen: soft, bowel sounds heard, NT Integumentary: no rash on the inspected area Neurologic: alert, confused Ext: no edema Subjective Date of service: 07/05/21 Principal diagnosis: AMS; Septic shock; Adult FTT; Hypertension; Adult FTT; C- diff colitis Objective - Vital Signs Vital signs: Vital Signs - 12hr 07/05/21 07/05/21 07/05/21 04:46 05:37 10:00 Temperature 98.4 F Pulse Rate 62 Respiratory 20 20 Rate Blood Pressure 143/84 O2 Sat by Pulse 91 94 96 Oximetry - Lab 07/05/21 13:23 07/05/21 13:23 Most recent lab results Calcium 7.4 mg/dL (8.4-10.2) L 07/04/21 05:42 Phosphorus 4.10 mg/dL (2.5-4.5) 07/03/21 04:00 Magnesium 2.00 mg/dL (1.7-2.3) 07/03/21 04:00 Urine Creatinine 68.3 mg/dL (0.1-20.0) H 07/03/21 Unknown Urine Sodium 27 mmol/L 07/03/21 Unknown Medications & Allergies - Medications Allergies/Adverse Reactions: Allergies diclofenac Allergy (Unknown, Verified 07/04/21 07:17) Unknown codeine Allergy (Verified 07/04/21 07:17) Nausea Penicillins Allergy (Verified 07/04/21 07:17) Unknown Sulfa (Sulfonamide Antibiotics) Allergy (Verified 07/04/21 07:17) UNABLE TO WALK, MUSCLES Home Medications: Home Medications Medication Instructions Recorded Confirmed Last Taken Type Albuterol Sulfate [Proair 2 puff INHALATION Q4H PRN 07/03/21 07/03/21 Unknown History Respiclick] Apixaban [Eliquis] 5 mg PO BID 07/03/21 07/03/21 Unknown History Ascorbic Acid [Vitamin C] 1 tab PO DAILY 07/03/21 07/03/21 Unknown History Benzonatate [Tessalon Perles] 100 mg PO Q8HR 07/03/21 07/03/21 Unknown History Cholecalciferol (Vitamin D3) 5,000 unit PO DAILY 07/03/21 07/03/21 Unknown History [Vitamin D3] Cyanocobalamin [Vitamin B-12] 1,000 mcg PO DAILY 07/03/21 07/03/21 Unknown History Fluticasone [Flonase] 1 spray INHALATION DAILY 07/03/21 07/03/21 Unknown History Fluticasone/Salmeterol [Advair 1 puff INHALATION BID 07/03/21 07/03/21 Unknown History Diskus 250-50 mcg] Folic Acid [Folvite] 1 mg PO QDAY 07/03/21 07/03/21 Unknown History Ipratropium [Atrovent] 0.5 mg IH Q6HRT 07/03/21 07/03/21 Unknown History Levothyroxine [Synthroid] 100 mcg PO QAM 07/03/21 07/03/21 Unknown History Metoprolol Tartrate 12.5 mg PO BID 07/03/21 07/03/21 Unknown History Montelukast Sodium 10 mg PO HS 07/03/21 07/03/21 Unknown History Vitamin B Complex [Balanced B-50] 1 each PO DAILY 07/03/21 07/03/21 Unknown His tory dronabinoL [Dronabinol] 2.5 mg PO BID 07/03/21 07/03/21 Unknown History lisinopriL [Lisinopril] 10 mg PO DAILY 07/03/21 07/03/21 Unknown History Active Medications: Generic Name Dose Route Start Last Admin Trade Name Freq PRN Reason Stop Dose Admin Acetaminophen 650 mg 07/02/21 04:11 Acetaminophen 650 Mg Rect Supp [place] Q6H PRN Pain MILD(1-3)/Fever >100.5/COLIN Lipase/Protease/Amylase 1 each 07/03/21 12:12 Lipase 10,500/Protease 25,000/Amylase 43,750 (Units) Dr Cap FEEDTUBE PRN PRN For Clogged Feeding Tube Sodium Bicarbonate 75 meq/ 1,075 mls @ 100 mls/hr 07/03/21 10:00 07/05/21 04:30 Dextrose IV 100 mls/hr DIRECT HEBERT Administration Insulin Human Lispro 0 unit 07/04/21 09:00 07/05/21 05:17 Insulin Lispro 100 Unit/Ml SUB-Q Not Given Q6HR [facility] Protocol Lansoprazole 30 mg 07/05/21 22:00 Lansoprazole 30 Mg Solutab FEEDTUBE BID HEBERT Magnesium Hydroxide 30 ml 07/02/21 04:11 Magnesium Hydroxide (Mom) Oral Liqd Udc PO Q4H PRN Constipation Ondansetron HCl 4 mg 07/02/21 04:11 Ondansetron 4 Mg/2 Ml Inj IV Q8H PRN Nausea And Vomiting Simple Syrup 15 ml 07/03/21 12:12 Simple Syrup 15 Ml FEEDTUBE PRN PRN Hypoglycemia Simple Syrup 30 ml 07/03/21 12:12 Simple Syrup 15 Ml FEEDTUBE PRN PRN Hypoglycemia Sodium Bicarbonate 325 mg 07/03/21 12:12 Sodium Bicarbonate 325 Mg Tab FEEDTUBE PRN PRN For Clogged Feeding Tube Sodium Chloride 10 ml 07/02/21 10:00 07/05/21 10:09 Sodium Chloride 0.9% 10 Ml Flush Syringe IV 10 ml BID HEBERT Administration Sodium Chloride 10 ml 07/02/21 04:11 Sodium Chloride 0.9% 10 Ml Flush Syringe IV PRN PRN LINE FLUSH Vancomycin HCl 125 mg 07/05/21 13:00 Vancomycin 250 Mg/10 Ml Oral Liqd FEEDTUBE 07/13/21 12:01 Q6HR [facility] Protocol
[2021-07-05 13:51] LABS: Hematocrit 27.2 % (30.3-42.9); Hemoglobin 8.3 gm/dl (10.1-14.3); Mean Corpuscular HGB Conc 30 % (30-34); Mean Corpuscular Volume 96 fl (79-97); Platelet Count 280 K/mm3 (140-440); Red Blood Count 2.84 M/mm3 (3.65-5.03); Red Cell Distribution Width 17.8 % (13.2-15.2)
[2021-07-05 14:05] LABS: Calcium 7.6 mg/dL (8.4-10.2)
--- NOTE | 2021-07-05 15:43 | XRay Report ---
ABDOMEN 1 VIEW(S) 07/05/2021 2:59 PM INDICATION / CLINICAL INFORMATION: tube placement. COMPARISON: None available. FINDINGS: The tip of an esophagogastric tube projects over the distal stomach in expected position. Signer Name: Jayden Steinberg MD Signed: 07/05/2021 3:38 PM Workstation Name: [id number]
--- NOTE | 2021-07-05 15:52 | Progress Note ---
Assessment and Plan Acute toxic metabolic encephalopathy Acute kidney injury Septic shock Possible hypovolemic shock component Adult failure to thrive Hypertension Leukocytosis Lactic acidosis Possible urinary tract infection Clostridium difficile colitis - continue isolation re: COVID-19 & C-diff - continue Vancomycin for c-diff; de-escalate per ID recommendations - continue care as below otherwise; - prn supplemental oxygen for target O2 sat's > 90% acutely - aspiration precautions - prn bronchodilators with pulmonary hygiene per RT - avoid nephrotoxins, renally dose all medications - avoid benzodiazepine's, reduce the possibility of delirium - AB's per ID rec's - prn analgesia per CPOT score - Maintenance of sleep-wake cycle, avoid delirium - enteral nutritional support at goal rate as tolerated - G.I. & VTE prophylaxis - PT/OT/ROM exercises - continue mobility protocols for pressure ulcer prophylaxis - Monitor hemodynamics closely - continue other care per attending / other consultants - discharge planning ongoing concurrently COVID SPECIFIC INTERVENTIONS - test positive but in recovery - isolation per facility COVID recovery protocol .... Re-evaluate in am & prn Subjective Date of service: 07/05/21 Principal diagnosis: AMS; Septic shock; Adult FTT; Hypertension; Adult FTT; C- diff colitis Interval history: Patient is seen today for: Acute toxic metabolic encephalopathy; Septic shock; Adult FTT; Hypertension; Adult FTT; C-diff colitis Seen and examined at bedside; 24hour events reviewed; nursing and respiratory care staff consulted; no adverse overnight events reported to me; resting peacefully in bed; Objective Vital Signs - 12hr 07/05/21 07/05/21 07/05/21 04:46 05:37 10:00 Temperature 98.4 F Pulse Rate 62 Respiratory 20 20 Rate Blood Pressure 143/84 O2 Sat by Pulse 91 94 96 Oximetry 07/05/21 11:47 Temperature 98.1 F Pulse Rate 101 H Respiratory 18 Rate Blood Pressure 170/90 O2 Sat by Pulse 98 Oximetry Constitutional: no acute distress, other (eldetly female without increased respiratory effort at rest) Eyes: non-icteric ENT: oropharynx dry Neck: supple, no lymphadenopathy, no JVD Effort: normal Ascultation: Bilateral: clear, diminished breath sounds Percussion: Bilateral: not dull Cardiovascular: regular rate and rhythm Gastrointestinal: normoactive bowel sounds, soft, non-tender, non-distended Integumentary: normal Extremities: no cyanosis, no edema, pulses normal, no ischemia or petechiae Neurologic: non-focal exam (grossly), pupils equal and round, unable to assess Psychiatric: other (unable to assess re: AMS) CBC and BMP: 07/05/21 13:23 07/05/21 13:23 ABG, PT/INR, D-dimer: PT/INR, D-dimer PT 31.6 Sec. (12.2-14.9) H 07/03/21 04:00 INR 2.78 (0.87-1.13) H 07/03/21 04:00 Abnormal lab findings: Abnormal Labs 07/02/21 07/02/21 07/02/21 00:23 00:23 00:23 WBC 21.7 H RBC Hgb Hct RDW 17.0 H Plt Count 583 H Seg Neuts % (Manual) 86.0 H Lymphocytes % (Manual) 5.0 L Monocytes % (Manual) 9.0 H Seg Neutrophils # Man 18.7 H Lymphocytes # (Manual) 1.1 L Monocytes # (Manual) 2.0 H PT INR Sodium 146 H Chloride 107.1 H Carbon Dioxide 15 L BUN 80 H Creatinine 4.6 H Glucose 211 H POC Glucose Lactic Acid 5.70 H* Calcium Albumin 2.8 L Urine WBC (Auto) Urine Creatinine Coronavirus (PCR) 07/02/21 07/02/21 07/02/21 01:45 04:39 05:30 WBC RBC Hgb Hct RDW Plt Count Seg Neuts % (Manual) Lymphocytes % (Manual) Monocytes % (Manual) Seg Neutrophils # Man Lymphocytes # (Manual) Monocytes # (Manual) PT INR Sodium Chloride Carbon Dioxide BUN Creatinine Glucose POC Glucose Lactic Acid 5.50 H* 5.90 H* Calcium Albumin Urine WBC (Auto) 52.0 H Urine Creatinine Coronavirus (PCR) 07/02/21 07/03/21 07/03/21 11:56 01:09 01:59 WBC RBC Hgb Hct RDW Plt Count Seg Neuts % (Manual) Lymphocytes % (Manual) Monocytes % (Manual) Seg Neutrophils # Man Lymphocytes # (Manual) Monocytes # (Manual) PT INR Sodium Chloride Carbon Dioxide BUN 82 H Creatinine 3.7 H Glucose POC Glucose 61 L 65 L Lactic Acid Calcium Albumin Urine WBC (Auto) Urine Creatinine Coronavirus (PCR) 07/03/21 07/03/21 07/03/21 04:00 04:00 04:00 WBC 21.9 H RBC 3.28 L Hgb 9.6 L Hct RDW 17.7 H Plt Count Seg Neuts % (Manual) 84.0 H Lymphocytes % (Manual) 2.0 L Monocytes % (Manual) Seg Neutrophils # Man 18.4 H Lymphocytes # (Manual) 0.4 L Monocytes # (Manual) 1.5 H PT 31.6 H INR 2.78 H Sodium 152 H Chloride 124.3 H Carbon Dioxide 12 L BUN 78 H Creatinine 2.9 H Glucose 179 H POC Glucose Lactic Acid Calcium 6.6 L D Albumin Urine WBC (Auto) Urine Creatinine Coronavirus (PCR) 07/03/21 07/03/21 07/03/21 04:07 06:28 18:26 WBC RBC Hgb Hct RDW Plt Count Seg Neuts % (Manual) Lymphocytes % (Manual) Monocytes % (Manual) Seg Neutrophils # Man Lymphocytes # (Manual) Monocytes # (Manual) PT INR Sodium Chloride Carbon Dioxide BUN Creatinine Glucose POC Glucose 108 H 117 H 126 H Lactic Acid Calcium Albumin Urine WBC (Auto) Urine Creatinine Coronavirus (PCR) 07/03/21 07/03/21 07/03/21 23:18 Unknown Unknown WBC RBC Hgb Hct RDW Plt Count Seg Neuts % (Manual) Lymphocytes % (Manual) Monocytes % (Manual) Seg Neutrophils # Man Lymphocytes # (Manual) Monocytes # (Manual) PT INR Sodium Chloride Carbon Dioxide BUN Creatinine Glucose POC Glucose 189 H Lactic Acid Calcium Albumin Urine WBC (Auto) Urine Creatinine 68.3 H Coronavirus (PCR) Positive A 07/04/21 07/04/21 07/04/21 05:42 05:42 07:30 WBC 20.7 H RBC 3.16 L Hgb 9.2 L Hct 30.1 L RDW 17.6 H Plt Count Seg Neuts % (Manual) Lymphocytes % (Manual) Monocytes % (Manual) Seg Neutrophils # Man Lymphocytes # (Manual) Monocytes # (Manual) PT INR Sodium 151 H Chloride 120.7 H Carbon Dioxide 16 L BUN 67 H Creatinine 2.2 H Glucose 225 H POC Glucose 174 H Lactic Acid Calcium 7.4 L Albumin Urine WBC (Auto) Urine Creatinine Coronavirus (PCR) 07/04/21 07/04/21 07/05/21 11:32 22:31 04:51 WBC RBC Hgb Hct RDW Plt Count Seg Neuts % (Manual) Lymphocytes % (Manual) Monocytes % (Manual) Seg Neutrophils # Man Lymphocytes # (Manual) Monocytes # (Manual) PT INR Sodium Chloride Carbon Dioxide BUN Creatinine Glucose POC Glucose 182 H 122 H 123 H Lactic Acid Calcium Albumin Urine WBC (Auto) Urine Creatinine Coronavirus (PCR) 07/05/21 07/05/21 13:23 13:23 WBC RBC 2.84 L Hgb 8.3 L Hct 27.2 L RDW 17.8 H Plt Count Seg Neuts % (Manual) Lymphocytes % (Manual) Monocytes % (Manual) Seg Neutrophils # Man Lymphocytes # (Manual) Monocytes # (Manual) PT INR Sodium 148 H Chloride 115.5 H Carbon Dioxide 20 L BUN 38 H Creatinine Glucose 199 H POC Glucose Lactic Acid Calcium 7.6 L Albumin Urine WBC (Auto) Urine Creatinine Coronavirus (PCR) Allied health notes reviewed: nursing
[2021-07-05] MEDS: VANCOMYCIN 250 MG/10 ML ORAL LIQD FEEDTUBE SCH ×3 (16:38→23:48)
[2021-07-05] MEDS ORDERED: ACETAMINOPHEN 325 MG/10.15 ML ORAL LIQD UNIT DOSE FEEDTUBE PRN (22:30)
[2021-07-05] MEDS: LANSOPRAZOLE 30 MG SOLUTAB FEEDTUBE SCH (22:44)
[2021-07-06] MEDS: VANCOMYCIN 250 MG/10 ML ORAL LIQD FEEDTUBE SCH ×3 (06:24→18:19)
[2021-07-06] MEDS: INSULIN LISPRO 100 UNIT/ML SUB-Q SCH ×3 (06:25→17:11)
--- NOTE | 2021-07-06 09:31 | Progress Note ---
Assessment and Plan 80-year-old -[place] female resident of a retirement with known history of hypertension and a recent history of COVID-19 brought into the emergency room today for changes in mental status. Patient was said to have had decreased responsiveness while in the retirement over the past 3 days. She was unable to give any good history and most of the history was obtained from the ER staff. Upon arrival in the emergency room patient's blood pressure was about 80/40 mmHg. She was placed on sepsis protocol. She was immediately commenced on IV fluid with improvement of her systolic blood pressure in the low 100s. Work-up in the emergency room , labs reveals a leukocytosis of 21.7, lactic acid of 5.5, glucose of 211, BUN and creatinine of 80 and 4.6 respectively, sodium of 146. Chest x-ray shows mild bibasilar scarring versus atelectasis. No pneumonia. CT of the abdomen and pelvis reveals rectal fecal impaction. Patient diagnosed with c difficile infection. Patient placed on PO vancomycin. Patient presently awake but confused. Patient is on room air. Not using her O2. O2 saturation reported 100. No acute respiratory distress. Patient running low grade temp. Has leukocytosis. Blood pressure 159/83, Pulse 89, Respirations 18. CHEST 1 VIEW 07/01/2021 11:26 PM Mild bibasilar scarring versus atelectasis. No pneumonia. Patient is on PO vancomycin. Also getting prevacid. - Patient Problems (1) Acute sepsis Current Visit: Yes Status: Acute Plan to address problem: Patient treated with Zosyn, Metronidazole and vancomycin. (2) Acute renal failure Current Visit: Yes Status: Acute Plan to address problem: Management as per nephrology. (3) Acute hypernatremia Current Visit: Yes Status: Acute Plan to address problem: Management as per nephrology. (4) Toxic metabolic encephalopathy Current Visit: Yes Status: Acute Plan to address problem: Management as per primary care and neurology. Subjective Date of service: 07/06/21 Principal diagnosis: AMS; Septic shock; Adult FTT; Hypertension; Adult FTT; C- diff colitis Interval history: 80-year-old -[place] female resident of a retirement with known history of hypertension and a recent history of COVID-19 brought into the emergency room today for changes in mental status. Patient was said to have had decreased responsiveness while in the retirement over the past 3 days. She was unable to give any good history and most of the history was obtained from the ER staff. Upon arrival in the emergency room patient's blood pressure was about 80/40 mmHg. She was placed on sepsis protocol. She was immediately commenced on IV fluid with improvement of her systolic blood pressure in the low 100s. Work-up in the emergency room , labs reveals a leukocytosis of 21.7, lactic acid of 5.5, glucose of 211, BUN and creatinine of 80 and 4.6 respectively, sodium of 146. Chest x-ray shows mild bibasilar scarring versus atelectasis. No pneumonia. CT of the abdomen and pelvis reveals rectal fecal impaction. Patient diagnosed with c difficile infection. Patient placed on PO vancomycin. Patient presently awake but confused. Patient is on room air. Not using her O2. O2 saturation reported 100. No acute respiratory distress. Patient running low grade temp. Has leukocytosis. Blood pressure 159/83, Pulse 89, Respirations 18. CHEST 1 VIEW 07/01/2021 11:26 PM Mild bibasilar scarring versus atelectasis. No pneumonia. Patient is on PO vancomycin. Also getting prevacid. Objective Vital Signs - 12hr 07/05/21 07/06/21 22:00 03:43 Temperature 98.7 F 98.6 F Pulse Rate 92 H 90 Respiratory 16 16 Rate Blood Pressure 140/64 121/61 O2 Sat by Pulse 95 96 Oximetry Constitutional: no acute distress, alert, other (eldetly female without increased respiratory effort at rest. Confused.) Eyes: non-icteric ENT: oropharynx dry Neck: supple, no lymphadenopathy, no JVD Effort: normal Ascultation: Bilateral: diminished breath sounds Percussion: Bilateral: not dull Cardiovascular: regular rate and rhythm Gastrointestinal: normoactive bowel sounds, soft, non-tender, non-distended Integumentary: normal Extremities: no cyanosis, no edema, pulses normal, no ischemia or petechiae Neurologic: non-focal exam (grossly), pupils equal and round, unable to assess Psychiatric: other (unable to assess re: AMS) CBC and BMP: 07/06/21 14:43 07/06/21 14:43 ABG, PT/INR, D-dimer: PT/INR, D-dimer PT 31.6 Sec. (12.2-14.9) H 07/03/21 04:00 INR 2.78 (0.87-1.13) H 07/03/21 04:00 Abnormal lab findings: Abnormal Labs 07/02/21 07/02/21 07/02/21 00:23 00:23 00:23 WBC 21.7 H RBC Hgb Hct RDW 17.0 H Plt Count 583 H Seg Neuts % (Manual) 86.0 H Lymphocytes % (Manual) 5.0 L Monocytes % (Manual) 9.0 H Seg Neutrophils # Man 18.7 H Lymphocytes # (Manual) 1.1 L Monocytes # (Manual) 2.0 H PT INR Sodium 146 H Chloride 107.1 H Carbon Dioxide 15 L BUN 80 H Creatinine 4.6 H Glucose 211 H POC Glucose Lactic Acid 5.70 H* Calcium Albumin 2.8 L Urine WBC (Auto) Urine Creatinine Coronavirus (PCR) 07/02/21 07/02/21 07/02/21 01:45 04:39 05:30 WBC RBC Hgb Hct RDW Plt Count Seg Neuts % (Manual) Lymphocytes % (Manual) Monocytes % (Manual) Seg Neutrophils # Man Lymphocytes # (Manual) Monocytes # (Manual) PT INR Sodium Chloride Carbon Dioxide BUN Creatinine Glucose POC Glucose Lactic Acid 5.50 H* 5.90 H* Calcium Albumin Urine WBC (Auto) 52.0 H Urine Creatinine Coronavirus (PCR) 07/02/21 07/03/21 07/03/21 11:56 01:09 01:59 WBC RBC Hgb Hct RDW Plt Count Seg Neuts % (Manual) Lymphocytes % (Manual) Monocytes % (Manual) Seg Neutrophils # Man Lymphocytes # (Manual) Monocytes # (Manual) PT INR Sodium Chloride Carbon Dioxide BUN 82 H Creatinine 3.7 H Glucose POC Glucose 61 L 65 L Lactic Acid Calcium Albumin Urine WBC (Auto) Urine Creatinine Coronavirus (PCR) 07/03/21 07/03/21 07/03/21 04:00 04:00 04:00 WBC 21.9 H RBC 3.28 L Hgb 9.6 L Hct RDW 17.7 H Plt Count Seg Neuts % (Manual) 84.0 H Lymphocytes % (Manual) 2.0 L Monocytes % (Manual) Seg Neutrophils # Man 18.4 H Lymphocytes # (Manual) 0.4 L Monocytes # (Manual) 1.5 H PT 31.6 H INR 2.78 H Sodium 152 H Chloride 124.3 H Carbon Dioxide 12 L BUN 78 H Creatinine 2.9 H Glucose 179 H POC Glucose Lactic Acid Calcium 6.6 L D Albumin Urine WBC (Auto) Urine Creatinine Coronavirus (PCR) 07/03/21 07/03/21 07/03/21 04:07 06:28 18:26 WBC RBC Hgb Hct RDW Plt Count Seg Neuts % (Manual) Lymphocytes % (Manual) Monocytes % (Manual) Seg Neutrophils # Man Lymphocytes # (Manual) Monocytes # (Manual) PT INR Sodium Chloride Carbon Dioxide BUN Creatinine Glucose POC Glucose 108 H 117 H 126 H Lactic Acid Calcium Albumin Urine WBC (Auto) Urine Creatinine Coronavirus (PCR) 07/03/21 07/03/21 07/03/21 23:18 Unknown Unknown WBC RBC Hgb Hct RDW Plt Count Seg Neuts % (Manual) Lymphocytes % (Manual) Monocytes % (Manual) Seg Neutrophils # Man Lymphocytes # (Manual) Monocytes # (Manual) PT INR Sodium Chloride Carbon Dioxide BUN Creatinine Glucose POC Glucose 189 H Lactic Acid Calcium Albumin Urine WBC (Auto) Urine Creatinine 68.3 H Coronavirus (PCR) Positive A 07/04/21 07/04/21 07/04/21 05:42 05:42 07:30 WBC 20.7 H RBC 3.16 L Hgb 9.2 L Hct 30.1 L RDW 17.6 H Plt Count Seg Neuts % (Manual) Lymphocytes % (Manual) Monocytes % (Manual) Seg Neutrophils # Man Lymphocytes # (Manual) Monocytes # (Manual) PT INR Sodium 151 H Chloride 120.7 H Carbon Dioxide 16 L BUN 67 H Creatinine 2.2 H Glucose 225 H POC Glucose 174 H Lactic Acid Calcium 7.4 L Albumin Urine WBC (Auto) Urine Creatinine Coronavirus (PCR) 07/04/21 07/04/21 07/05/21 11:32 22:31 04:51 WBC RBC Hgb Hct RDW Plt Count Seg Neuts % (Manual) Lymphocytes % (Manual) Monocytes % (Manual) Seg Neutrophils # Man Lymphocytes # (Manual) Monocytes # (Manual) PT INR Sodium Chloride Carbon Dioxide BUN Creatinine Glucose POC Glucose 182 H 122 H 123 H Lactic Acid Calcium Albumin Urine WBC (Auto) Urine Creatinine Coronavirus (PCR) 07/05/21 07/05/21 07/05/21 13:23 13:23 16:40 WBC RBC 2.84 L Hgb 8.3 L Hct 27.2 L RDW 17.8 H Plt Count Seg Neuts % (Manual) Lymphocytes % (Manual) Monocytes % (Manual) Seg Neutrophils # Man Lymphocytes # (Manual) Monocytes # (Manual) PT INR Sodium 148 H Chloride 115.5 H Carbon Dioxide 20 L BUN 38 H Creatinine Glucose 199 H POC Glucose 133 H Lactic Acid Calcium 7.6 L Albumin Urine WBC (Auto) Urine Creatinine Coronavirus (PCR) 07/05/21 07/06/21 23:41 05:55 WBC RBC Hgb Hct RDW Plt Count Seg Neuts % (Manual) Lymphocytes % (Manual) Monocytes % (Manual) Seg Neutrophils # Man Lymphocytes # (Manual) Monocytes # (Manual) PT INR Sodium Chloride Carbon Dioxide BUN Creatinine Glucose POC Glucose 197 H 166 H Lactic Acid Calcium Albumin Urine WBC (Auto) Urine Creatinine Coronavirus (PCR) Chest x-ray: report reviewed, image reviewed Additional Studies: CHEST 1 VIEW 07/01/2021 11:26 PM INDICATION / CLINICAL INFORMATION: sepsis. COMPARISON: 06/29/07 FINDINGS: SUPPORT DEVICES: None. HEART / MEDIASTINUM: No significant abnormality. LUNGS / PLEURA: Mild bibasilar scarring versus atelectasis. No pneumothorax. ADDITIONAL FINDINGS: No significant additional findings. IMPRESSION: 1. Mild bibasilar scarring versus atelectasis. No pneumonia. Allied health notes reviewed: nursing
--- NOTE | 2021-07-06 10:00 | Progress Note ---
Assessment and Plan 1. Acute kidney injury: Vasomotor LENCHO in the setting of hypotension. Renal US negative for any hydro. Baseline renal function normal. Monitor renal function. Creatinine level is better. Avoid nephrotoxic agents. Meds dosage based on GFR. 2. FEN: Metabolic acidosis, 2/2 LENCHO, improved, monitor. Hypernatremia, improved, monitor. Replete lytes as needed Monitor lytes and volume status. 3. Sepsis, POA: Sacral decub. Colitis. Follow cultures. 4. Covid-19 infection: Monitor. 5. Acute metabolic encephalopathy: Monitor. 6. C.diff colitis. 7. Sacral pressure ulcer. Wound care. Subjective: Patient was seen and examined at the bedside. Examination: General appearance: well-developed, appears stated age, emaciated, no distress, NG tube HEENT: atraumatic Neck: trachea midline Respiratory: ctab Heart: S1S2, regular, no murmur Abdomen: soft, bowel sounds heard, NT Integumentary: no rash on the inspected area Neurologic: alert, confused Ext: no edema Subjective Date of service: 07/06/21 Principal diagnosis: AMS; Septic shock; Adult FTT; Hypertension; Adult FTT; C- diff colitis Objective - Vital Signs Vital signs: Vital Signs - 12hr 07/06/21 03:43 Temperature 98.6 F Pulse Rate 90 Respiratory 16 Rate Blood Pressure 121/61 O2 Sat by Pulse 96 Oximetry - Lab 07/06/21 14:43 07/06/21 14:43 Most recent lab results Calcium 7.6 mg/dL (8.4-10.2) L 07/05/21 13:23 Phosphorus 4.10 mg/dL (2.5-4.5) 07/03/21 04:00 Magnesium 2.00 mg/dL (1.7-2.3) 07/03/21 04:00 Urine Creatinine 68.3 mg/dL (0.1-20.0) H 07/03/21 Unknown Urine Sodium 27 mmol/L 07/03/21 Unknown Medications & Allergies - Medications Allergies/Adverse Reactions: Allergies diclofenac Allergy (Unknown, Verified 07/04/21 07:17) Unknown codeine Allergy (Verified 07/04/21 07:17) Nausea Penicillins Allergy (Verified 07/04/21 07:17) Unknown Sulfa (Sulfonamide Antibiotics) Allergy (Verified 07/04/21 07:17) UNABLE TO WALK, MUSCLES Home Medications: Home Medications Medication Instructions Recorded Confirmed Last Taken Type Albuterol Sulfate [Proair 2 puff INHALATION Q4H PRN 07/03/21 07/03/21 Unknown History Respiclick] Apixaban [Eliquis] 5 mg PO BID 07/03/21 07/03/21 Unknown History Ascorbic Acid [Vitamin C] 1 tab PO DAILY 07/03/21 07/03/21 Unknown History Benzonatate [Tessalon Perles] 100 mg PO Q8HR 07/03/21 07/03/21 Unknown History Cholecalciferol (Vitamin D3) 5,000 unit PO DAILY 07/03/21 07/03/21 Unknown History [Vitamin D3] Cyanocobalamin [Vitamin B-12] 1,000 mcg PO DAILY 07/03/21 07/03/21 Unknown History Fluticasone [Flonase] 1 spray INHALATION DAILY 07/03/21 07/03/21 Unknown History Fluticasone/Salmeterol [Advair 1 puff INHALATION BID 07/03/21 07/03/21 Unknown History Diskus 250-50 mcg] Folic Acid [Folvite] 1 mg PO QDAY 07/03/21 07/03/21 Unknown History Ipratropium [Atrovent] 0.5 mg IH Q6HRT 07/03/21 07/03/21 Unknown History Levothyroxine [Synthroid] 100 mcg PO QAM 07/03/21 07/03/21 Unknown History Metoprolol Tartrate 12.5 mg PO BID 07/03/21 07/03/21 Unknown History Montelukast Sodium 10 mg PO HS 07/03/21 07/03/21 Unknown History Vitamin B Complex [Balanced B-50] 1 each PO DAILY 07/03/21 07/03/21 Unknown History dronabinoL [Dronabinol] 2.5 mg PO BID 07/03/21 07/03/21 Unknown History lisinopriL [Lisinopril] 10 mg PO DAILY 07/03/21 07/03/21 Unknown History Active Medications: Generic Name Dose Route Start Last Admin Trade Name Freq PRN Reason Stop Dose Admin Acetaminophen 650 mg 07/05/21 22:30 07/05/21 22:44 Acetaminophen 325 Mg/10.15 Ml Oral Liqd Unit Dose FEEDTUBE 650 mg Q6H PRN Administration Pain, Mild (1-3) Lipase/Protease/Amylase 1 each 07/03/21 12:12 Lipase 10,500/Protease 25,000/Amylase 43,750 (Units) Dr Olegario FEEDTUBE PRN PRN For Clogged Feeding Tube Sodium Bicarbonate 75 meq/ 1,075 mls @ 100 mls/hr 07/03/21 10:00 07/05/21 18:57 Dextrose IV 100 mls/hr DIRECT HEBERT Administration Insulin Human Lispro 0 unit 07/04/21 09:00 07/06/21 06:25 Insulin Lispro 100 Unit/Ml SUB-Q 3 unit Q6HR HEBERT Administration Protocol Lansoprazole 30 mg 07/05/21 22:00 07/05/21 22:44 Lansoprazole 30 Mg Solutab FEEDTUBE 30 mg BID HEBERT Administration Magnesium Hydroxide 30 ml 07/02/21 04:11 Magnesium Hydroxide (Mom) Oral Liqd Udc PO Q4H PRN Constipation Ondansetron HCl 4 mg 07/02/21 04:11 Ondansetron 4 Mg/2 Ml Inj IV Q8H PRN Nausea And Vomiting Simple Syrup 15 ml 07/03/21 12:12 Simple Syrup 15 Ml FEEDTUBE PRN PRN Hypoglycemia Simple Syrup 30 ml 07/03/21 12:12 Simple Syrup 15 Ml FEEDTUBE PRN PRN Hypoglycemia Sodium Bicarbonate 325 mg 07/03/21 12:12 Sodium Bicarbonate 325 Mg Tab FEEDTUBE PRN PRN For Clogged Feeding Tube Sodium Chloride 10 ml 07/02/21 10:00 07/05/21 22:45 Sodium Chloride 0.9% 10 Ml Flush Syringe IV 10 ml BID HEBERT Administration Sodium Chloride 10 ml 07/02/21 04:11 Sodium Chloride 0.9% 10 Ml Flush Syringe IV PRN PRN LINE FLUSH Vancomycin HCl 125 mg 07/05/21 13:00 07/06/21 06:24 Vancomycin 250 Mg/10 Ml Oral Liqd FEEDTUBE 07/13/21 12:01 125 mg Q6HR HEBERT Administration Protocol
--- NOTE | 2021-07-06 10:01 | Progress Note ---
Assessment and Plan Assessment and plan: This is a 80-year-old AA female with a past medical history of HTN, hypothyroidism, GERD, and asthma who was sent to the hospital for a intermediate facility for decreased responsiveness X3days. Patient was found to be septic, severely dehydrated, and in LENCHO. Patient was admitted in the ICU for further m anagement. Hospital Course to Date: 07/03/21- Patient is lethargic and confused, on 2L NC. Cdiff came back positive will continue current tx with PO Vanco. Patient is too lethargic for PO intake, NGT inserted for meds and nutrition. Continue current IVF for now and continue to monitor renal function, Nephro is on the case. 07/04/21- Patient is a lot more awake this am, AAO, following commands. Continue PO vanco and cont IVF for now. Will D/C right femoral CVC then patient is stable for transfer to the floor. 07/05/21 patient seen and examined. Patient is more awake alert no chest pain no shortness of breath. BUN is 67 creatinine 2.2. wbc 20.7. pt is on 2 liters of oxygen nasal canula. pt have a ng tube feeding going on. pt have a urinary cathether and rectal tube. Continue p.o. Vanco and IV fluid. Continue current management. Recheck CBC and BMP in the morning 07/06: Patient clinically improving with mentation ozuna. Still lethargic NG tube still ongoing. Will await speech evaluation today for swallow. Continue current management we will also get PT OT if able to tolerate diet anticipate discharge in a.m. Blood sugar is not in the 160s. Renal function continues to show remarkable improvement. Assessment and Plan #Acute Metabolic Encephalopathy - Probably due to infection - Awake and alert this am, following commands - Avoid benzodiazepine to reduce the possibility of delirium - Prn analgesia for pain management - Maintenance of sleep-wake cycle #Hypotension- resolved #Septic Shock-improved #Hypovolemic Shock-improved - Patient s/p IVF boluses - No longer on pressors - Maintain adequate perfusion - Continue rehydration with cont. IVF - Continue blood pressure monitor per protocol - Maintain MAP above 65 - SCDs for VTE proph #Respiratory Insufficiency - 07/01 Chest x-ray shows mild bibasilar scarring versus atelectasis. No pneumonia. - Recently treated for COIVD PNA, was D/C on O2 supplement - Currently on 2L NC SPO2 at 100% - COVID swab positive - CCM consulted, appreciate recommendations - Aspiration precaution HOB above 30 - PRN CXR per CCM - Continue SPO2 monitoring for SPO2 goal above 92% #GI:Clostridium difficile colitis #H/o GERD #H/o GI Bleed - Recent Hosoitalization for COVID for longer Abx - C.diff positive - Continue PO Vanco via NGT - Enteral nutrition initiated - Continue PPI- Protonix BID - GI on consult #Anemia #H/o GI Bleed - Report of bloody stools from SNF - will sent occult stools - H&H is currently stable - No AC at this time - SCDs to bilateral lower extremities while in bed -Trend CBC - GI on consult, no intervention at this time #Acute Kidney Injury (LENCHO) most likely vasomotor 2/2 septic Shock #Hypovolemic Shock #Dehydration #Hypernatremia - Patient recent D/C from hospital, Scr was 1.1 - Scr. as high as 4.6, 2.9 this am - 07/03 FENa 0.8%, Pre- renal - Nephrology on consult, appreciated recommendation - Strict intake and output - Avoid nephrotoxic medications; Renally dose medications - Continue IVF for now - Monitor and replace electrolytes as needed #Sepsis #GI:Clostridium difficile colitis #Leukocytosis #Sacral pressure ulcer #Lactic Acidosis- resolved - Lactic acidosis as high as 5.90, trend down to 2 - TMAX 99.2 - 07/02 B.CultX2 pending, Urine cult pending - Continue rehydration with cont. IVF - ID on consult - Continue current ABx regimen per ID - Continue to F/U on B.cult - Daily CBC monitor #Endo: Hypoglycemia - BG as low as 61 but improved - Probably due to poor PO intake - POCT BG check Q6hrs - Hypoglycemic Protocol - Avoid Hypoglycemia History Interval history: Patient seen and examined more awake more alert today NG tube still in place awaiting speech evaluation. Hospitalist Physical - Physical exam Narrative exam: General appearance: Present: no acute distress, well-nourished, cachectic - EENT Eyes: Present: PERRL, EOM intact ENT: hearing intact, clear oral mucosa, dentition normal NG tube in place - Neck Neck: Present: supple, normal ROM - Respiratory Respiratory effort: normal Respiratory: bilateral: diminished - Cardiovascular Rhythm: regular Heart Sounds: Present: S1 & S2 - Extremities Extremities: no ischemia, pulses intact, No edema Peripheral Pulses: within normal limits - Abdominal General gastrointestinal: non-tender, non-distended, normal bowel sounds - Integumentary Integumentary: Present: clear, warm, dry - Psychiatric Psychiatric: appropriate mood/affect - Neurologic Neurologic: CNII-XII intact, moves all extremities - Allied Health Allied health notes reviewed: nursing - Constitutional Vitals: Temp Pulse Resp BP Pulse Ox 98.6 F 90 16 121/61 96 07/06/21 03:43 07/06/21 03:43 07/06/21 03:43 07/06/21 03:43 07/06/21 03:43 General appearance: Present: no acute distress, well-nourished, cachectic HEART Score - HEART Score Troponin: Troponin T 0.024 ng/mL (0.00-0.029) 07/02/21 00:23 Results - Labs CBC & Chem 7: 07/05/21 13:23 07/05/21 13:23 Labs: Laboratory Last Values WBC 9.9 K/mm3 (4.5-11.0) 07/05/21 13:23 RBC 2.84 M/mm3 (3.65-5.03) L 07/05/21 13:23 Hgb 8.3 gm/dl (10.1-14.3) L 07/05/21 13:23 Hct 27.2 % (30.3-42.9) L 07/05/21 13:23 MCV 96 fl (79-97) 07/05/21 13:23 MCH 29 pg (28-32) 07/05/21 13:23 MCHC 30 % (30-34) 07/05/21 13:23 RDW 17.8 % (13.2-15.2) H 07/05/21 13:23 Plt Count 280 K/mm3 (140-440) 07/05/21 13:23 Add Manual Diff Complete 07/03/21 04:00 Total Counted 100 07/03/21 04:00 Seg Neutrophils % Drop Board Worker 07/03/21 04:00 Seg Neuts % (Manual) 84.0 % (40.0-70.0) H 07/03/21 04:00 Band Neutrophils % 5.0 % 07/03/21 04:00 Lymphocytes % (Manual) 2.0 % (13.4-35.0) L 07/03/21 04:00 Monocytes % (Manual) 7.0 % (0.0-7.3) 07/03/21 04:00 Myelocytes % 2.0 % 07/03/21 04:00 Nucleated RBC % Not Reportable 07/03/21 04:00 Seg Neutrophils # Man 18.4 K/mm3 (1.8-7.7) H 07/03/21 04:00 Band Neutrophils # 1.1 K/mm3 07/03/21 04:00 Lymphocytes # (Manual) 0.4 K/mm3 (1.2-5.4) L 07/03/21 04:00 Abs React Lymphs (Man) 0.0 K/mm3 07/03/21 04:00 Monocytes # (Manual) 1.5 K/mm3 (0.0-0.8) H 07/03/21 04:00 Eosinophils # (Manual) 0.0 K/mm3 (0.0-0.4) 07/03/21 04:00 Basophils # (Manual) 0.0 K/mm3 (0.0-0.1) 07/03/21 04:00 Metamyelocytes # 0.0 K/mm3 07/03/21 04:00 Myelocytes # 0.4 K/mm3 07/03/21 04:00 Promyelocytes # 0.0 K/mm3 07/03/21 04:00 Blast Cells # 0.0 K/mm3 07/03/21 04:00 WBC Morphology Not Reportable 07/03/21 04:00 Hypersegmented Neuts Not Reportable 07/03/21 04:00 Hyposegmented Neuts Not Reportable 07/03/21 04:00 Hypogranular Neuts Not Reportable 07/03/21 04:00 Smudge Cells Not Reportable 07/03/21 04:00 Toxic Granulation Not Reportable 07/03/21 04:00 Toxic Vacuolation Not Reportable 07/03/21 04:00 Dohle Bodies Not Reportable 07/03/21 04:00 Pelger-Huet Anomaly Not Reportable 07/03/21 04:00 Lorrie Rods Not Reportable 07/03/21 04:00 Platelet Estimate Consistent w auto 07/03/21 04:00 Clumped Platelets 3+ 07/03/21 04:00 Plt Clumps, EDTA Not Reportable 07/03/21 04:00 Large Platelets Not Reportable 07/03/21 04:00 Giant Platelets Not Reportable 07/03/21 04:00 Platelet Satelliting Not Reportable 07/03/21 04:00 Plt Morphology Comment Platelet clumping 07/03/21 04:00 RBC Morphology Not Reportable 07/03/21 04:00 Dimorphic RBCs Not Reportable 07/03/21 04:00 Polychromasia Not Reportable 07/03/21 04:00 Hypochromasia Not Reportable 07/03/21 04:00 Poikilocytosis Not Reportable 07/03/21 04:00 Anisocytosis Not Reportable 07/03/21 04:00 Microcytosis Not Reportable 07/03/21 04:00 Macrocytosis Not Reportable 07/03/21 04:00 Spherocytes Not Reportable 07/03/21 04:00 Pappenheimer Bodies Not Reportable 07/03/21 04:00 Sickle Cells Not Reportable 07/03/21 04:00 Target Cells Not Reportable 07/03/21 04:00 Tear Drop Cells Not Reportable 07/03/21 04:00 Ovalocytes Not Reportable 07/03/21 04:00 Helmet Cells Not Reportable 07/03/21 04:00 [place] Bodies Not Reportable 07/03/21 04:00 [place] Rings Not Reportable 07/03/21 04:00 [place] Cells Not Reportable 07/03/21 04:00 Bite Cells Not Reportable 07/03/21 04:00 Crenated Cell Not Reportable 07/03/21 04:00 Elliptocytes Not Reportable 07/03/21 04:00 Acanthocytes (Spur) Not Reportable 07/03/21 04:00 Rouleaux Not Reportable 07/03/21 04:00 Hemoglobin C Crystals Not Reportable 07/03/21 04:00 Schistocytes Not Reportable 07/03/21 04:00 Malaria parasites Not Reportable 07/03/21 04:00 Ulises Bodies Not Reportable 07/03/21 04:00 Hem Pathologist Commnt No 07/03/21 04:00 PT 31.6 Sec. (12.2-14.9) H 07/03/21 04:00 INR 2.78 (0.87-1.13) H 07/03/21 04:00 Sodium 148 mmol/L (137-145) H 07/05/21 13:23 Potassium 3.6 mmol/L (3.6-5.0) 07/05/21 13:23 Chloride 115.5 mmol/L (98-107) H 07/05/21 13:23 Carbon Dioxide 20 mmol/L (22-30) L 07/05/21 13:23 Anion Gap 16 mmol/L 07/05/21 13:23 BUN 38 mg/dL (7-17) H 07/05/21 13:23 Creatinine 1.1 mg/dL (0.6-1.2) 07/05/21 13:23 Estimated GFR 58 ml/min 07/05/21 13:23 BUN/Creatinine Ratio 35 % 07/05/21 13:23 Glucose 199 mg/dL (65-100) H 07/05/21 13:23 POC Glucose 166 mg/dL (70-105) H 07/06/21 05:55 Lactic Acid 2.00 mmol/L (0.7-2.0) 07/03/21 04:30 Calcium 7.6 mg/dL (8.4-10.2) L 07/05/21 13:23 Phosphorus 4.10 mg/dL (2.5-4.5) 07/03/21 04:00 Magnesium 2.00 mg/dL (1.7-2.3) 07/03/21 04:00 Total Bilirubin 0.60 mg/dL (0.1-1.2) 07/02/21 00:23 AST 14 units/L (5-40) 07/02/21 00:23 ALT 8 units/L (7-56) 07/02/21 00:23 Alkaline Phosphatase 118 units/L (35-129) 07/02/21 00:23 Troponin T 0.024 ng/mL (0.00-0.029) 07/02/21 00:23 Total Protein 6.4 g/dL (6.3-8.2) 07/02/21 00:23 Albumin 2.8 g/dL (3.9-5) L 07/02/21 00:23 Albumin/Globulin Ratio 0.8 % 07/02/21 00:23 Procalcitonin 4.12 ng/mL (<0.15) 07/03/21 06:06 Urine Color Janey (Yellow) 07/02/21 04:39 Urine Turbidity Cloudy (Clear) 07/02/21 04:39 Urine pH 5.0 (5.0-7.0) 07/02/21 04:39 Ur Specific [place] 1.017 (1.003-1.030) 07/02/21 04:39 Urine Protein 100 mg/dl mg/dL (Negative) 07/02/21 04:39 Urine Glucose (UA) 50 mg/dL (Negative) 07/02/21 04:39 Urine Ketones Neg mg/dL (Negative) 07/02/21 04:39 Urine Blood Mod (Negative) 07/02/21 04:39 Urine Nitrite Neg (Negative) 07/02/21 04:39 Urine Bilirubin Neg (Negative) 07/02/21 04:39 Urine Urobilinogen 2.0 mg/dL (<2.0) 07/02/21 04:39 Ur Leukocyte Esterase Mod (Negative) 07/02/21 04:39 Urine WBC (Auto) 52.0 /HPF (0.0-6.0) H 07/02/21 04:39 Urine RBC (Auto) 22.0 /HPF (0.0-6.0) 07/02/21 04:39 U Epithel Cells (Auto) 7.0 /HPF (0-13.0) 07/02/21 04:39 Urine Bacteria (Auto) 1+ /HPF (Negative) 07/02/21 04:39 Urine WBC Clumps 2+ /HPF 07/02/21 04:39 Hyaline Casts 2 /LPF 07/02/21 04:39 Urine Mucus Few /HPF 07/02/21 04:39 Urine Yeast (Budding) 2+ /HPF 07/02/21 04:39 Urine Eosinophils None seen (None Seen) 07/03/21 Unknown Urine Creatinine 68.3 mg/dL (0.1-20.0) H 07/03/21 Unknown Urine Sodium 27 mmol/L 07/03/21 Unknown Fraction Sodium Excret 0.7 07/03/21 Unknown C. difficile Tox (PCR) Positive (Negative) 07/02/21 Unknown Coronavirus (PCR) Positive (Negative) A 07/03/21 Unknown Microbiology: Microbiology 07/02/21 00:23 Peripheral/Venous Blood Culture - Preliminary NO GROWTH AFTER 4 DAYS 07/02/21 00:55 Peripheral/Venous Blood Culture - Preliminary NO GROWTH AFTER 4 DAYS Harris/IV: Voiding Method Indwelling Catheter Active Medications - Current Medications Current Medications: Generic Name Dose Route Start Last Admin Trade Name Freq PRN Reason Stop Dose Admin Acetaminophen 650 mg 07/05/21 22:30 07/05/21 22:44 Acetaminophen 325 Mg/10.15 Ml Oral Liqd Unit Dose FEEDTUBE 650 mg Q6H PRN Administration Pain, Mild (1-3) Lipase/Protease/Amylase 1 each 07/03/21 12:12 Lipase 10,500/Protease 25,000/Amylase 43,750 (Units) Dr Olegario FEEDTUBE PRN PRN For Clogged Feeding Tube Sodium Bicarbonate 75 meq/ 1,075 mls @ 100 mls/hr 07/03/21 10:00 07/05/21 18:57 Dextrose IV 100 mls/hr DIRECT HEBERT Administration Insulin Human Lispro 0 unit 07/04/21 09:00 07/06/21 06:25 Insulin Lispro 100 Unit/Ml SUB-Q 3 unit Q6HR HEBERT Administration Protocol Lansoprazole 30 mg 07/05/21 22:00 07/05/21 22:44 Lansoprazole 30 Mg Solutab FEEDTUBE 30 mg BID HEBERT Administration Magnesium Hydroxide 30 ml 07/02/21 04:11 Magnesium Hydroxide (Mom) Oral Liqd Udc PO Q4H PRN Constipation Ondansetron HCl 4 mg 07/02/21 04:11 Ondansetron 4 Mg/2 Ml Inj IV Q8H PRN Nausea And Vomiting Simple Syrup 15 ml 07/03/21 12:12 Simple Syrup 15 Ml FEEDTUBE PRN PRN Hypoglycemia Simple Syrup 30 ml 07/03/21 12:12 Simple Syrup 15 Ml FEEDTUBE PRN PRN Hypoglycemia Sodium Bicarbonate 325 mg 07/03/21 12:12 Sodium Bicarbonate 325 Mg Tab FEEDTUBE PRN PRN For Clogged Feeding Tube Sodium Chloride 10 ml 07/02/21 10:00 07/05/21 22:45 Sodium Chloride 0.9% 10 Ml Flush Syringe IV 10 ml BID HEBERT Administration Sodium Chloride 10 ml 07/02/21 04:11 Sodium Chloride 0.9% 10 Ml Flush Syringe IV PRN PRN LINE FLUSH Vancomycin HCl 125 mg 07/05/21 13:00 07/06/21 06:24 Vancomycin 250 Mg/10 Ml Oral Liqd FEEDTUBE 07/13/21 12:01 125 mg Q6HR HEBERT Administration Protocol Nutrition/Malnutrition Assess - Dietary Evaluation Nutrition/Malnutrition Findings: Nutrition Notes Start: 07/02/21 13:56 Freq: Status: Active Protocol: Document 07/05/21 09:35 [email or web address] (Rec: 07/05/21 09:40 [email or web address] [id number]) Nutrition Notes Initial or Follow up Reassessment Current Diagnosis Acute Kidney Injury,Sepsis, Hypertension Other Pertinent Diagnosis AMS, Sacral PU, Recent COVID- 19 Current Diet TF - Glucerna 1.2 at 50ml/hr Labs/Tests (07/04) Na 151 BUN 67 Cr 2.2 BG 225 Pertinent Medications Reviewed Height 5 ft 6 in Weight 59.874 kg [place] Body Weight (kg) 59.09 BMI 21.3 Weight Status Underweight Subjective/Other Information Pt transferred to yesterday afternoon. Spoke with pt's RN at 9:33. Pt pulled out feeding tube this am; will get evaluated by INSTITUTIONAL ASSET MANAGER to see if she can eat, as she is alert. Rectal tube remains in place. Burn Absent Trauma Absent GI Symptoms Diarrhea Skin Integrity/Comment quarter size sacral decubitus Minimum of two criteria No #1 Nutrition Diagnosis Inadequate energy intake Diagnosis Progress(for reassessment Continues documentation) Is patient on ventilator? No Is Patient Ambulatory and/or Out of Bed No REE-([facility]-confined to bed) 1321.356 Kcal/Kg value to use for calculation 30 Approximate Energy Requirements Using 1796 kcal/Kg Calculation Used for Recommendations Kcal/kg Additional Notes Pro needs 0.8-1.2g/k-72g/ day Fluid needs 1ml/kcal Nutrition Intervention Change Diet Order: Advance diet if medically feasible Nutrition Support: Resume Glucerna 1.2 at 50ml/hr if unable to advance diet Goal #1 Either advance diet or resume TF to meet nutrient needs Goal #2 Wt maintenance and/or gain Goal #3 Wound healing Follow-Up By: 07/07/21 Additional Comments F/U: diet advancement vs resume TF, labs (Na and renal)
[2021-07-06] MEDS: LANSOPRAZOLE 30 MG SOLUTAB FEEDTUBE SCH ×2 (10:15→22:00)
--- NOTE | 2021-07-06 10:44 | Progress Note ---
Assessment and Plan Cultures: Blood culture 07/02/2021 no growth 07/02/2021 urine culture: No growth 07/02/2021 C. difficile PCR: Positive 07/03/2021 COVID-19 PCR: Positive A/P: 80 yo F with PMhx COVID admitted with: #Sepsis: with fevers and leukocytosis. Secondary to C diff. #C diff colitis: with history of recent prolonged hospital exposure, now at [place]. #COVID-19 PCR positivity: Considered noninfectious given her previous prolonged hospitalization at [facility]. #Acute encephalopathy: possibly due to underlying infection from C.difficile vs LENCHO #Sacral pressure ulcer: superficial. #LENCHO: improved Recs: -PO vancomycin 125mg q6h to complete 10 days (after Zosyn was stopped, ending 07/13/2021) -wound care and offloading for sacral decubitus Cyndi Fontanez MD, FACP [facility] ([facility] O: [phone] F: [phone] Subjective Date of service: 07/06/21 Principal diagnosis: AMS; Septic shock; Adult FTT; Hypertension; Adult FTT; C- diff colitis Interval history: No fever. On room air. Has fecal management system in place. Objective - Exam Narrative Exam: Physical Exam (reviewed in chart to minimize risk of transmission) Constitutional: deferred Head, Ears, Nose: deferred Eyes: deferred Neck: deferred Oral: deferred Cardiovascular: deferred Respiratory: deferred GI: deferred Musculoskeletal: deferred Skin: deferred Hem/Lymphatic: deferred Psych: deferred Neurological: deferred - Constitutional Vitals: Vital Signs Temp Pulse Resp BP Pulse Ox 98.6 F 90 16 121/61 96 07/06/21 03:43 07/06/21 03:43 07/06/21 03:43 07/06/21 03:43 07/06/21 03:43 Temperature -Last 24 Hours Temperature 98.6 F Temperature 98.7 F Temperature 98.7 F Temperature 98.1 F - Labs CBC & Chem 7: 07/05/21 13:23 07/05/21 13:23 Labs: Abnormal lab results 07/05/21 07/05/21 07/05/21 Range/Units 13:23 13:23 16:40 RBC 2.84 L (3.65-5.03) M/mm3 Hgb 8.3 L (10.1-14.3) gm/dl Hct 27.2 L (30.3-42.9) % RDW 17.8 H (13.2-15.2) % Sodium 148 H (137-145) mmol/L Chloride 115.5 H (98-107) mmol/L Carbon Dioxide 20 L (22-30) mmol/L BUN 38 H (7-17) mg/dL Glucose 199 H (65-100) mg/dL POC Glucose 133 H (70-105) mg/dL Calcium 7.6 L (8.4-10.2) mg/dL 07/05/21 07/06/21 Range/Units 23:41 05:55 RBC (3.65-5.03) M/mm3 Hgb (10.1-14.3) gm/dl Hct (30.3-42.9) % RDW (13.2-15.2) % Sodium (137-145) mmol/L Chloride (98-107) mmol/L Carbon Dioxide (22-30) mmol/L BUN (7-17) mg/dL Glucose (65-100) mg/dL POC Glucose 197 H 166 H (70-105) mg/dL Calcium (8.4-10.2) mg/dL
[2021-07-06] MEDS: SODIUM BICARBONATE 75 MEQ in DEXTROSE 5% IN WATER 1,000 ML IV SCH (13:53)
[2021-07-06 15:42] LABS: Eosinophils # (Auto) 0.2 K/mm3 (0.0-0.4); Eosinophils % (Auto) 1.1 % (0.0-4.3); Hematocrit 29.6 % (30.3-42.9); Lymphocytes # (Auto) 1.1 K/mm3 (1.2-5.4); Lymphocytes % (Auto) 7.9 % (13.4-35.0); Mean Corpuscular HGB Conc 31 % (30-34); Mean Corpuscular Volume 92 fl (79-97); Monocytes # (Auto) 0.6 K/mm3 (0.0-0.8); Monocytes % (Auto) 4.6 % (0.0-7.3); Platelet Count 394 K/mm3 (140-440); Red Blood Count 3.21 M/mm3 (3.65-5.03); Red Cell Distribution Width 17.7 % (13.2-15.2)
[2021-07-06 16:01] LABS: BUN/Creatinine Ratio 26; Blood Urea Nitrogen 21 mg/dL (7-17); Calcium 7.9 mg/dL (8.4-10.2); Hemolysis Index 9
[2021-07-06] MEDS ORDERED: POTASSIUM CHLORIDE ER 20 MEQ TAB PO ONE (17:00)
[2021-07-06] MEDS: POTASSIUM CHLORIDE 10 MEQ 10 MEQ/100 ML BAG IV SCH ×4 (19:03→22:47)
[2021-07-07] MEDS: VANCOMYCIN 250 MG/10 ML ORAL LIQD FEEDTUBE SCH ×3 (00:06→12:26)
[2021-07-07] MEDS: INSULIN LISPRO 100 UNIT/ML SUB-Q SCH ×2 (00:06→06:11)
--- NOTE | 2021-07-07 08:31 | Progress Note ---
Assessment and Plan - Patient Problems (1) Acute sepsis Status: Acute (2) Acute renal failure Status: Acute (3) Acute hypernatremia Status: Acute (4) Toxic metabolic encephalopathy Status: Acute Subjective Date of service: 07/07/21 Principal diagnosis: AMS; Septic shock; Adult FTT; Hypertension; Adult FTT; C-diff colitis Interval history: Patient discharged before I see the patient to day. Objective Vital Signs - 12hr 07/06/21 22:00 Temperature 98.1 F Respiratory 16 Rate Blood Pressure 151/84 O2 Sat by Pulse 95 Oximetry Effort: normal Psychiatric: other (unable to assess re: AMS) CBC and BMP: 07/06/21 14:43 07/07/21 09:01 ABG, PT/INR, D-dimer: PT/INR, D-dimer PT 31.6 Sec. (12.2-14.9) H 07/03/21 04:00 INR 2.78 (0.87-1.13) H 07/03/21 04:00 Abnormal lab findings: Abnormal Labs 07/02/21 07/02/21 07/02/21 00:23 00:23 00:23 WBC 21.7 H RBC Hgb Hct RDW 17.0 H Plt Count 583 H Lymph % (Auto) Lymph # (Auto) Seg Neutrophils % Seg Neuts % (Manual) 86.0 H Lymphocytes % (Manual) 5.0 L Monocytes % (Manual) 9.0 H Seg Neutrophils # Seg Neutrophils # Man 18.7 H Lymphocytes # (Manual) 1.1 L Monocytes # (Manual) 2.0 H PT INR Sodium 146 H Potassium Chloride 107.1 H Carbon Dioxide 15 L BUN 80 H Creatinine 4.6 H Glucose 211 H POC Glucose Lactic Acid 5.70 H* Calcium Albumin 2.8 L Urine WBC (Auto) Urine Creatinine Coronavirus (PCR) 07/02/21 07/02/21 07/02/21 01:45 04:39 05:30 WBC RBC Hgb Hct RDW Plt Count Lymph % (Auto) Lymph # (Auto) Seg Neutrophils % Seg Neuts % (Manual) Lymphocytes % (Manual) Monocytes % (Manual) Seg Neutrophils # Seg Neutrophils # Man Lymphocytes # (Manual) Monocytes # (Manual) PT INR Sodium Potassium Chloride Carbon Dioxide BUN Creatinine Glucose POC Glucose Lactic Acid 5.50 H* 5.90 H* Calcium Albumin Urine WBC (Auto) 52.0 H Urine Creatinine Coronavirus (PCR) 07/02/21 07/03/21 07/03/21 11:56 01:09 01:59 WBC RBC Hgb Hct RDW Plt Count Lymph % (Auto) Lymph # (Auto) Seg Neutrophils % Seg Neuts % (Manual) Lymphocytes % (Manual) Monocytes % (Manual) Seg Neutrophils # Seg Neutrophils # Man Lymphocytes # (Manual) Monocytes # (Manual) PT INR Sodium Potassium Chloride Carbon Dioxide BUN 82 H Creatinine 3.7 H Glucose POC Glucose 61 L 65 L Lactic Acid Calcium Albumin Urine WBC (Auto) Urine Creatinine Coronavirus (PCR) 07/03/21 07/03/21 07/03/21 04:00 04:00 04:00 WBC 21.9 H RBC 3.28 L Hgb 9.6 L Hct RDW 17.7 H Plt Count Lymph % (Auto) Lymph # (Auto) Seg Neutrophils % Seg Neuts % (Manual) 84.0 H Lymphocytes % (Manual) 2.0 L Monocytes % (Manual) Seg Neutrophils # Seg Neutrophils # Man 18.4 H Lymphocytes # (Manual) 0.4 L Monocytes # (Manual) 1.5 H PT 31.6 H INR 2.78 H Sodium 152 H Potassium Chloride 124.3 H Carbon Dioxide 12 L BUN 78 H Creatinine 2.9 H Glucose 179 H POC Glucose Lactic Acid Calcium 6.6 L D Albumin Urine WBC (Auto) Urine Creatinine Coronavirus (PCR) 07/03/21 07/03/21 07/03/21 04:07 06:28 18:26 WBC RBC Hgb Hct RDW Plt Count Lymph % (Auto) Lymph # (Auto) Seg Neutrophils % Seg Neuts % (Manual) Lymphocytes % (Manual) Monocytes % (Manual) Seg Neutrophils # Seg Neutrophils # Man Lymphocytes # (Manual) Monocytes # (Manual) PT INR Sodium Potassium Chloride Carbon Dioxide BUN Creatinine Glucose POC Glucose 108 H 117 H 126 H Lactic Acid Calcium Albumin Urine WBC (Auto) Urine Creatinine Coronavirus (PCR) 07/03/21 07/03/21 07/03/21 23:18 Unknown Unknown WBC RBC Hgb Hct RDW Plt Count Lymph % (Auto) Lymph # (Auto) Seg Neutrophils % Seg Neuts % (Manual) Lymphocytes % (Manual) Monocytes % (Manual) Seg Neutrophils # Seg Neutrophils # Man Lymphocytes # (Manual) Monocytes # (Manual) PT INR Sodium Potassium Chloride Carbon Dioxide BUN Creatinine Glucose POC Glucose 189 H Lactic Acid Calcium Albumin Urine WBC (Auto) Urine Creatinine 68.3 H Coronavirus (PCR) Positive A 07/04/21 07/04/21 07/04/21 05:42 05:42 07:30 WBC 20.7 H RBC 3.16 L Hgb 9.2 L Hct 30.1 L RDW 17.6 H Plt Count Lymph % (Auto) Lymph # (Auto) Seg Neutrophils % Seg Neuts % (Manual) Lymphocytes % (Manual) Monocytes % (Manual) Seg Neutrophils # Seg Neutrophils # Man Lymphocytes # (Manual) Monocytes # (Manual) PT INR Sodium 151 H Potassium Chloride 120.7 H Carbon Dioxide 16 L BUN 67 H Creatinine 2.2 H Glucose 225 H POC Glucose 174 H Lactic Acid Calcium 7.4 L Albumin Urine WBC (Auto) Urine Creatinine Coronavirus (PCR) 07/04/21 07/04/21 07/05/21 11:32 22:31 04:51 WBC RBC Hgb Hct RDW Plt Count Lymph % (Auto) Lymph # (Auto) Seg Neutrophils % Seg Neuts % (Manual) Lymphocytes % (Manual) Monocytes % (Manual) Seg Neutrophils # Seg Neutrophils # Man Lymphocytes # (Manual) Monocytes # (Manual) PT INR Sodium Potassium Chloride Carbon Dioxide BUN Creatinine Glucose POC Glucose 182 H 122 H 123 H Lactic Acid Calcium Albumin Urine WBC (Auto) Urine Creatinine Coronavirus (PCR) 07/05/21 07/05/21 07/05/21 13:23 13:23 16:40 WBC RBC 2.84 L Hgb 8.3 L Hct 27.2 L RDW 17.8 H Plt Count Lymph % (Auto) Lymph # (Auto) Seg Neutrophils % Seg Neuts % (Manual) Lymphocytes % (Manual) Monocytes % (Manual) Seg Neutrophils # Seg Neutrophils # Man Lymphocytes # (Manual) Monocytes # (Manual) PT INR Sodium 148 H Potassium Chloride 115.5 H Carbon Dioxide 20 L BUN 38 H Creatinine Glucose 199 H POC Glucose 133 H Lactic Acid Calcium 7.6 L Albumin Urine WBC (Auto) Urine Creatinine Coronavirus (PCR) 07/05/21 07/06/21 07/06/21 23:41 05:55 11:19 WBC RBC Hgb Hct RDW Plt Count Lymph % (Auto) Lymph # (Auto) Seg Neutrophils % Seg Neuts % (Manual) Lymphocytes % (Manual) Monocytes % (Manual) Seg Neutrophils # Seg Neutrophils # Man Lymphocytes # (Manual) Monocytes # (Manual) PT INR Sodium Potassium Chloride Carbon Dioxide BUN Creatinine Glucose POC Glucose 197 H 166 H 151 H Lactic Acid Calcium Albumin Urine WBC (Auto) Urine Creatinine Coronavirus (PCR) 07/06/21 07/06/21 07/06/21 14:43 14:43 22:00 WBC 13.7 H RBC 3.21 L Hgb 9.0 L Hct 29.6 L RDW 17.7 H Plt Count Lymph % (Auto) 7.9 L Lymph # (Auto) 1.1 L Seg Neutrophils % 86.4 H Seg Neuts % (Manual) Lymphocytes % (Manual) Monocytes % (Manual) Seg Neutrophils # 11.8 H Seg Neutrophils # Man Lymphocytes # (Manual) Monocytes # (Manual) PT INR Sodium Potassium 2.7 L* D Chloride 108.8 H Carbon Dioxide BUN 21 H Creatinine Glucose 123 H POC Glucose 115 H Lactic Acid Calcium 7.9 L Albumin Urine WBC (Auto) Urine Creatinine Coronavirus (PCR) 07/07/21 07/07/21 06:08 07:28 WBC RBC Hgb Hct RDW Plt Count Lymph % (Auto) Lymph # (Auto) Seg Neutrophils % Seg Neuts % (Manual) Lymphocytes % (Manual) Monocytes % (Manual) Seg Neutrophils # Seg Neutrophils # Man Lymphocytes # (Manual) Monocytes # (Manual) PT INR Sodium Potassium Chloride Carbon Dioxide BUN Creatinine Glucose POC Glucose 150 H 163 H Lactic Acid Calcium Albumin Urine WBC (Auto) Urine Creatinine Coronavirus (PCR) Allied health notes reviewed: nursing
--- NOTE | 2021-07-07 08:57 | Progress Note ---
Assessment and Plan 1. Acute kidney injury: Vasomotor LENCHO in the setting of hypotension. Renal US negative for any hydro. Baseline renal function normal. Monitor renal function. Creatinine level is better. Avoid nephrotoxic agents. Meds dosage based on GFR. 2. FEN: Metabolic acidosis, 2/2 LENCHO, improved, monitor. Hypernatremia, improved, monitor. Replete lytes as needed Monitor lytes and volume status. 3. Sepsis, POA: Sacral decub. Colitis. Followed by ID. 4. Covid-19 infection: Monitor. 5. Acute metabolic encephalopathy: Monitor. 6. C.diff colitis. 7. Sacral pressure ulcer. Wound care. Subjective: Patient was seen and examined at the bedside. Examination: General appearance: well-developed, appears stated age, emaciated, no distress HEENT: atraumatic Neck: trachea midline Respiratory: ctab Heart: S1S2, regular, no murmur Abdomen: soft, bowel sounds heard, NT Integumentary: no rash on the inspected area Neurologic: alert, appears confused Ext: no edema Subjective Date of service: 07/07/21 Principal diagnosis: AMS; Septic shock; Adult FTT; Hypertension; Adult FTT; C- diff colitis Objective - Vital Signs Vital signs: Vital Signs - 12hr 07/06/21 22:00 Temperature 98.1 F Respiratory 16 Rate Blood Pressure 151/84 O2 Sat by Pulse 95 Oximetry - Lab 07/06/21 14:43 07/07/21 09:01 Most recent lab results Calcium 7.9 mg/dL (8.4-10.2) L 07/06/21 14:43 Phosphorus 4.10 mg/dL (2.5-4.5) 07/03/21 04:00 Magnesium 2.00 mg/dL (1.7-2.3) 07/03/21 04:00 Urine Creatinine 68.3 mg/dL (0.1-20.0) H 07/03/21 Unknown Urine Sodium 27 mmol/L 07/03/21 Unknown Medications & Allergies - Medications Allergies/Adverse Reactions: Allergies diclofenac Allergy (Unknown, Verified 07/04/21 07:17) Unknown codeine Allergy (Verified 07/04/21 07:17) Nausea Penicillins Allergy (Verified 07/04/21 07:17) Unknown Sulfa (Sulfonamide Antibiotics) Allergy (Verified 07/04/21 07:17) UNABLE TO WALK, MUSCLES Home Medications: Home Medications Medication Instructions Recorded Confirmed Last Taken Type Albuterol Sulfate [Proair 2 puff INHALATION Q4H PRN 07/03/21 07/03/21 Unknown History Respiclick] Apixaban [Eliquis] 5 mg PO BID 07/03/21 07/03/21 Unknown History Ascorbic Acid [Vitamin C] 1 tab PO DAILY 07/03/21 07/03/21 Unknown History Benzonatate [Tessalon Perles] 100 mg PO Q8HR 07/03/21 07/03/21 Unknown History Cholecalciferol (Vitamin D3) 5,000 unit PO DAILY 07/03/21 07/03/21 Unknown History [Vitamin D3] Cyanocobalamin [Vitamin B-12] 1,000 mcg PO DAILY 07/03/21 07/03/21 Unknown History Fluticasone [Flonase] 1 spray INHALATION DAILY 07/03/21 07/03/21 Unknown History Fluticasone/Salmeterol [Advair 1 puff INHALATION BID 07/03/21 07/03/21 Unknown History Diskus 250-50 mcg] Folic Acid [Folvite] 1 mg PO QDAY 07/03/21 07/03/21 Unknown History Ipratropium [Atrovent NEB] 0.5 mg IH Q6HRT 07/03/21 07/03/21 Unknown History Levothyroxine [Synthroid] 100 mcg PO QAM 07/03/21 07/03/21 Unknown History Metoprolol Tartrate 12.5 mg PO BID 07/03/21 07/03/21 Unknown History Montelukast Sodium 10 mg PO HS 07/03/21 07/03/21 Unknown History Vitamin B Complex [Balanced B-50] 1 each PO DAILY 07/03/21 07/03/21 Unknown History dronabinoL [Dronabinol] 2.5 mg PO BID 07/03/21 07/03/21 Unknown History lisinopriL [Lisinopril] 10 mg PO DAILY 07/03/21 07/03/21 Unknown History Vancomycin HCl 125 mg PO Q6H #28 capsule 07/07/21 Unknown Rx Active Medications: Generic Name Dose Route Start Last Admin Trade Name Freq PRN Reason Stop Dose Admin Acetaminophen 650 mg 07/05/21 22:30 07/05/21 22:44 Acetaminophen 325 Mg/10.15 Ml Oral Liqd Unit Dose FEEDTUBE 650 mg Q6H PRN Administration Pain, Mild (1-3) Lipase/Protease/Amylase 1 each 07/03/21 12:12 Lipase 10,500/Protease 25,000/Amylase 43,750 (Units) Dr Cap FEEDTUBE PRN PRN For Clogged Feeding Tube Insulin Human Lispro 0 unit 07/04/21 09:00 07/07/21 06:11 Insulin Lispro 100 Unit/Ml SUB-Q 3 unit Q6HR HEBERT Administration Protocol Lansoprazole 30 mg 07/05/21 22:00 07/06/21 22:00 Lansoprazole 30 Mg Solutab FEEDTUBE 30 mg BID HEBERT Administration Magnesium Hydroxide 30 ml 07/02/21 04:11 Magnesium Hydroxide (Mom) Oral Liqd Udc PO Q4H PRN Constipation Ondansetron HCl 4 mg 07/02/21 04:11 Ondansetron 4 Mg/2 Ml Inj IV Q8H PRN Nausea And Vomiting Simple Syrup 15 ml 07/03/21 12:12 Simple Syrup 15 Ml FEEDTUBE PRN PRN Hypoglycemia Simple Syrup 30 ml 07/03/21 12:12 Simple Syrup 15 Ml FEEDTUBE PRN PRN Hypoglycemia Sodium Bicarbonate 325 mg 07/03/21 12:12 Sodium Bicarbonate 325 Mg Tab FEEDTUBE PRN PRN For Clogged Feeding Tube Sodium Chloride 10 ml 07/02/21 10:00 07/06/21 22:00 Sodium Chloride 0.9% 10 Ml Flush Syringe IV 10 ml BID HEBERT Administration Sodium Chloride 10 ml 07/02/21 04:11 Sodium Chloride 0.9% 10 Ml Flush Syringe IV PRN PRN LINE FLUSH Vancomycin HCl 125 mg 07/05/21 13:00 07/07/21 06:10 Vancomycin 250 Mg/10 Ml Oral Liqd FEEDTUBE 07/13/21 12:01 125 mg Q6HR HEBERT Administration Protocol
[2021-07-07] MEDS: LANSOPRAZOLE 30 MG SOLUTAB FEEDTUBE SCH (09:08)
[2021-07-07 09:46] LABS: Blood Urea Nitrogen 16 mg/dL (7-17); Calcium 7.3 mg/dL (8.4-10.2); Hemolysis Index 8
[2021-07-07 09:49] LABS: BUN/Creatinine Ratio 27
--- NOTE | 2021-07-07 10:04 | Discharge Summary ---
Providers - Providers Date of Admission: 07/02/21 04:11 Attending physician: YOVANI CORONADO MD 07/02/21 04:12 Consult to Dietitian/Nutrition [CONS] Routine Physician Instructions: Reason For Exam: Reason for Consult: Diet education Consult to Physician [CONS] Routine Comment: Consulting Provider: LLOYD BIRD Physician Instructions: Reason For Exam: Acute renal failure 07/02/21 11:33 Consult to Physician [CONS] Routine Comment: Consulting Provider: ZAIDA MADISON Physician Instructions: Reason For Exam: GI bleed 07/02/21 11:35 Consult to Physician [CONS] Routine Comment: Consulting Provider: SALOMON THOMSON Physician Instructions: Reason For Exam: sepsis 07/02/21 11:50 Consult to Physician [CONS] Routine Comment: Consulting Provider: ALVARO COLMENARES Physician Instructions: Reason For Exam: Septic shock 07/03/21 10:46 Midline [Consult to PICC Line RN] [CONS] Routine Reason For Exam: Need PIV access Type Line:: Midline 07/03/21 10:50 Consult to Dietitian/Nutrition [CONS] Routine Physician Instructions: Reason For Exam: Reason for Consult: Write/Manage Tube Feeding 07/03/21 16:00 Occupational Therapy Evaluate and Treat [CONS] Routine Comment: Reason For Exam: Debility Physical Therapy Evaluation and Treat [CONS] Routine Comment: Reason For Exam: Debility 07/05/21 09:15 Speech Therapy Evaluation and Treat [CONS] Routine Reason For Exam: swallow 07/06/21 09:23 Occupational Therapy Evaluate and Treat [CONS] Routine Comment: Reason For Exam: debility Physical Therapy Evaluation and Treat [CONS] Routine Comment: Reason For Exam: debility 07/06/21 15:24 Consult to Wound/ET Nurse [CONS] Routine Reason For Exam: wound eval Primary care physician: KEELY ULRICH MD Hospitalization Reason for admission: Unresponsive Condition: Stable Hospital course: This is a 80-year-old AA female with a past medical history of HTN, hypothyroidism, GERD, and asthma who was sent to the hospital for a group home facility for decreased responsiveness X3days. Patient was found to be septic, severely dehydrated, and in LENCHO. Patient was admitted in the ICU for further management. Hospital Course to Date: 07/03/21- Patient is lethargic and confused, on 2L NC. Cdiff came back positive will continue current tx with PO Vanco. Patient is too lethargic for PO intake, NGT inserted for meds and nutrition. Continue current IVF for now and continue to monitor renal function, Nephro is on the case. 07/04/21- Patient is a lot more awake this am, AAO, following commands. Continue PO vanco and cont IVF for now. Will D/C right femoral CVC then patient is stable for transfer to the floor. 07/05/21 patient seen and examined. Patient is more awake alert no chest pain no shortness of breath. BUN is 67 creatinine 2.2. wbc 20.7. pt is on 2 liters of oxygen nasal canula. pt have a ng tube feeding going on. pt have a urinary cathether and rectal tube. Continue p.o. Vanco and IV fluid. Continue current management. Recheck CBC and BMP in the morning 07/06: Patient clinically improving with mentation ozuna. Still lethargic NG tube still ongoing. Will await speech evaluation today for swallow. Continue current management we will also get PT OT if able to tolerate diet anticipate discharge in a.m. Blood sugar is not in the 160s. Renal function continues to show remarkable improvement. 07/07: Patient seen and examined much more awake today stable ready for discharge she had passed a swallow evaluation and is now on a pured diet with thin liquids. Resume appropriate home medications. She was diagnosed with C. difficile colitis and will complete antibiotics up until the . Assessment and Plan #Acute Metabolic Encephalopathy - Probably due to infection - Awake and alert this am, following commands - Avoid benzodiazepine to reduce the possibility of delirium - Prn analgesia for pain management - Maintenance of sleep-wake cycle #Hypotension- resolved #Septic Shock-improved #Hypovolemic Shock-improved - Patient s/p IVF boluses - No longer on pressors - Maintain adequate perfusion - Continue rehydration with cont. IVF - Continue blood pressure monitor per protocol - Maintain MAP above 65 - SCDs for VTE proph #Respiratory Insufficiency - 07/01 Chest x-ray shows mild bibasilar scarring versus atelectasis. No pneumonia. - Recently treated for COIVD PNA, was D/C on O2 supplement - Currently on 2L NC SPO2 at 100% - COVID swab positive - CCM consulted, appreciate recommendations - Aspiration precaution HOB above 30 - PRN CXR per CCM - Continue SPO2 monitoring for SPO2 goal above 92% #GI:Clostridium difficile colitis #H/o GERD #H/o GI Bleed - Recent Hosoitalization for COVID for longer Abx - C.diff positive - Continue PO Vanco via NGT - Enteral nutrition initiated - Continue PPI- Protonix BID - GI on consult #Anemia #H/o GI Bleed - Report of bloody stools from SNF - will sent occult stools - H&H is currently stable - No AC at this time - SCDs to bilateral lower extremities while in bed -Trend CBC - GI on consult, no intervention at this time #Acute Kidney Injury (LENCHO) most likely vasomotor 2/2 septic Shock #Hypovolemic Shock #Dehydration #Hypernatremia - Patient recent D/C from hospital, Scr was 1.1 - Scr. as high as 4.6, 2.9 this am - 07/03 FENa 0.8%, Pre- renal - Nephrology on consult, appreciated recommendation - Strict intake and output - Avoid nephrotoxic medications; Renally dose medications - Continue IVF for now - Monitor and replace electrolytes as needed #Sepsis #GI:Clostridium difficile colitis #Leukocytosis #Sacral pressure ulcer #Lactic Acidosis- resolved - Lactic acidosis as high as 5.90, trend down to 2 - TMAX 99.2 - 07/02 B.CultX2 pending, Urine cult pending - Continue rehydration with cont. IVF - ID on consult - Continue current ABx regimen per ID - Continue to F/U on B.cult - Daily CBC monitor #Endo: Hypoglycemia - BG as low as 61 but improved - Probably due to poor PO intake - POCT BG check Q6hrs - Hypoglycemic Protocol - Avoid Hypoglycemia PO vancomycin 125mg q6h to complete 10 days (after Zosyn was stopped, ending 07/13/2021) -wound care and offloading for sacral decubitus Disposition: HOME / SELF CARE / HOMELESS Final Discharge Diagnosis (Prints w/discharge instructions): Septic shock with concomitant C. difficile colitis with acute blood loss anemia Time spent for discharge: 35 Core Measure Documentation - Palliative Care Palliative Care/ Comfort Measures: Not Applicable - Core Measures Any of the following diagnoses?: none Exam - Physical Exam Narrative exam: General appearance: Present: no acute distress, well-nourished, cachectic - EENT Eyes: Present: PERRL, EOM intact ENT: hearing intact, clear oral mucosa, dentition normal NG tube in place - Neck Neck: Present: supple, normal ROM - Respiratory Respiratory effort: normal Respiratory: bilateral: diminished - Cardiovascular Rhythm: regular Heart Sounds: Present: S1 & S2 - Extremities Extremities: no ischemia, pulses intact, No edema Peripheral Pulses: within normal limits - Abdominal General gastrointestinal: non-tender, non-distended, normal bowel sounds - Integumentary Integumentary: Present: clear, warm, dry - Psychiatric Psychiatric: appropriate mood/affect - Neurologic Neurologic: CNII-XII intact, moves all extremities., Awake alert x3 - Allied Health Allied health notes reviewed: nursing - Constitutional Vitals: Temp Pulse Resp BP Pulse Ox 98.1 F 86 16 151/84 95 07/06/21 22:00 07/06/21 12:15 07/06/21 22:00 07/06/21 22:00 07/06/21 22:00 Plan Activity: advance as tolerated, fall precautions Diet: low fat (pureed diet with thin liquids) Wound: per wound nurse instructions (wound care and offloading for sacral decubitus) Special Instructions: record daily weights, record daily BP diary Care Plan Goals: Continue appropriate home medications. Follow up with: KEELY ULRICH MD [Primary Care Provider] - 3-5 Days KEVYN DUVALL MD [Staff Physician] - 7 Days LLOYD BIRD MD [Staff Physician] - 7 Days Prescriptions: Vancomycin HCl 125 mg PO Q6H #28 capsule
[2021-07-07 12:47] VITALS: BP 138/72
--- NOTE | 2021-07-07 13:35 | Progress Note ---
Assessment and Plan Cultures: Blood culture 07/02/2021 no growth 07/02/2021 urine culture: No growth 07/02/2021 C. difficile PCR: Positive 07/03/2021 COVID-19 PCR: Positive A/P: 80 yo F with PMhx COVID admitted with: #Sepsis: with fevers and leukocytosis. Secondary to C diff. #C diff colitis: with history of recent prolonged hospital exposure, now at ID. #COVID-19 PCR positivity: Considered noninfectious given her previous prolonged hospitalization at [facility]. #Acute encephalopathy: possibly due to underlying infection from C.difficile vs LENCHO #Sacral pressure ulcer: superficial. #LENCHO: improved Recs: -PO vancomycin 125mg q6h to complete 10 days (after Zosyn was stopped, ending 07/13/2021) -wound care and offloading for sacral decubitus Cyndi Fontanez MD, FACP [facility] O: [phone] F: [phone] Subjective Date of service: 07/07/21 Principal diagnosis: AMS; Septic shock; Adult FTT; Hypertension; Adult FTT; C- diff colitis Interval history: No fever. Remains on room air. Diarrhea gradually improving. WBC yesterday improved to 13.7K Objective - Exam Narrative Exam: Physical Exam (reviewed in chart to minimize risk of transmission) Constitutional: deferred Head, Ears, Nose: deferred Eyes: deferred Neck: deferred Oral: deferred Cardiovascular: deferred Respiratory: deferred GI: deferred Musculoskeletal: deferred Skin: deferred Hem/Lymphatic: deferred Psych: deferred Neurological: deferred - Constitutional Vitals: Vital Signs Temp Pulse Resp BP Pulse Ox 98.7 F 83 18 138/72 97 07/07/21 12:47 07/07/21 12:47 07/07/21 12:47 07/07/21 12:47 07/07/21 12:47 Temperature -Last 24 Hours Temperature 98.7 F Temperature 98.4 F Temperature 98.1 F - Labs CBC & Chem 7: 07/06/21 14:43 07/07/21 09:01 Labs: Abnormal lab results 07/06/21 07/06/21 07/06/21 Range/Units 14:43 14:43 22:00 WBC 13.7 H (4.5-11.0) K/mm3 RBC 3.21 L (3.65-5.03) M/mm3 Hgb 9.0 L (10.1-14.3) gm/dl Hct 29.6 L (30.3-42.9) % RDW 17.7 H (13.2-15.2) % Lymph % (Auto) 7.9 L (13.4-35.0) % Lymph # (Auto) 1.1 L (1.2-5.4) K/mm3 Seg Neutrophils % 86.4 H (40.0-70.0) % Seg Neutrophils # 11.8 H (1.8-7.7) K/mm3 Potassium 2.7 L* D (3.6-5.0) mmol/L Chloride 108.8 H (98-107) mmol/L BUN 21 H (7-17) mg/dL Glucose 123 H (65-100) mg/dL POC Glucose 115 H (70-105) mg/dL Calcium 7.9 L (8.4-10.2) mg/dL Phosphorus (2.5-4.5) mg/dL 07/07/21 07/07/21 07/07/21 Range/Units 06:08 07:28 09:01 WBC (4.5-11.0) K/mm3 RBC (3.65-5.03) M/mm3 Hgb (10.1-14.3) gm/dl Hct (30.3-42.9) % RDW (13.2-15.2) % Lymph % (Auto) (13.4-35.0) % Lymph # (Auto) (1.2-5.4) K/mm3 Seg Neutrophils % (40.0-70.0) % Seg Neutrophils # (1.8-7.7) K/mm3 Potassium (3.6-5.0) mmol/L Chloride (98-107) mmol/L BUN (7-17) mg/dL Glucose 192 H (65-100) mg/dL POC Glucose 150 H 163 H (70-105) mg/dL Calcium 7.3 L (8.4-10.2) mg/dL Phosphorus 2.30 L (2.5-4.5) mg/dL 11/16/21 Range/Units 12:46 WBC (4.5-11.0) K/mm3 RBC (3.65-5.03) M/mm3 Hgb (10.1-14.3) gm/dl Hct (30.3-42.9) % RDW (13.2-15.2) % Lymph % (Auto) (13.4-35.0) % Lymph # (Auto) (1.2-5.4) K/mm3 Seg Neutrophils % (40.0-70.0) % Seg Neutrophils # (1.8-7.7) K/mm3 Potassium (3.6-5.0) mmol/L Chloride (98-107) mmol/L BUN (7-17) mg/dL Glucose (65-100) mg/dL POC Glucose 153 H (70-105) mg/dL Calcium (8.4-10.2) mg/dL Phosphorus (2.5-4.5) mg/dL
== END 2021-07-07 15:10 | DRG 871 ==
LOC: ED 23:34 → IMCU 07-02 04:11 → CC1 07-02 20:28 → 3A 07-04 17:05
PROVIDERS: ADMIT Internal Medicine Geriatric Medicine; ATTEND Internal Medicine
PROC: 06HY33Z Insertion of Infusion Device into Lower Vein, Percutaneous Approach (ICD-10-PCS; 2021-07-02)
PROC: B54BZZA Ultrasonography of Right Lower Extremity Veins, Guidance (ICD-10-PCS; 2021-07-02)
PROC: 05H933Z Insertion of Infusion Device into Right Brachial Vein, Percutaneous Approach (ICD-10-PCS; principal; 2021-07-04)
DX: A41.9 Sepsis, unspecified organism (principal); R65.21 Severe sepsis with septic shock; N17.0 Acute kidney failure with tubular necrosis; G92.9 Unspecified toxic encephalopathy; R57.1 Hypovolemic shock; E87.0 Hyperosmolality and hypernatremia; A04.72 Enterocolitis due to Clostridium difficile, not specified as recurrent; D62 Acute posthemorrhagic anemia; Z88.6 Allergy status to analgesic agent; Z88.0 Allergy status to penicillin; Z88.2 Allergy status to sulfonamides; Z88.8 Allergy status to other drugs, medicaments and biological substances; I10 Essential (primary) hypertension; L89.159 Pressure ulcer of sacral region, unspecified stage; R82.81 Pyuria; K21.9 Gastro-esophageal reflux disease without esophagitis; J45.909 Unspecified asthma, uncomplicated; E03.9 Hypothyroidism, unspecified; D64.9 Anemia, unspecified; R62.7 Adult failure to thrive; E16.2 Hypoglycemia, unspecified; E86.0 Dehydration
CPT/HCPCS: 36415; 71045; 74018; 74176; 76770; 80048; 80053; 81001; 82140; 82270; 82565; 82570; 82962; 83735; 84100; 84145; 84300; 84484; 84520; 85007; 85014; 85018; 85025; 85027; 85610; 87040; 87086; 87493; 89050; 93005; G0378; J3490; J7517; Q9967; C9113; J0610; J1815; J2270; J2543; J3370; J3480; J7030; J7070; U0003